=== PATIENT | female | born 2000 | race Caucasian/White ===

== ENCOUNTER 2023-03-11 09:51 | Outpatient (CLI) | payer MEDICAID, SELFPAY ==
[2023-03-11 10:11] VITALS: BP 104/65; PULSE 107; RESP 16; TEMP 35.9; O2SAT 98; BMI 26.9
[2023-03-11] MEDS: 0.9% NaCl Peripheral Flush Adult/Peds IV (10:17)
[2023-03-11] MEDS: 0.9% NaCl IVPB Med Flush (250 mL) 15 ML IV (10:20)
[2023-03-11 11:30] VITALS: BP 95/61; PULSE 83; RESP 16
== END 2023-03-11 09:52 | disposition home or self-care (01) ==
PROVIDERS: Referring Provider Obstetrics & Gynecology; Visit Provider Obstetrics & Gynecology
DX: O99.013 Anemia complicating pregnancy, third trimester (principal)
CPT/HCPCS: 96365; J1756; J7050; A4216

== ENCOUNTER 2023-03-14 11:25 | Outpatient (CLI) | payer MEDICAID, SELFPAY ==
[2023-03-14 11:33] VITALS: BP 119/71; PULSE 110; RESP 16; TEMP 36.3; O2SAT 100; BMI 27.3
[2023-03-14] MEDS: 0.9% NaCl Peripheral Flush Adult/Peds IV (11:41)
[2023-03-14] MEDS: 0.9% NaCl IVPB Med Flush (250 mL) 15 ML IV (11:45)
[2023-03-14 12:37] VITALS: BP 111/68; PULSE 97; RESP 16
== END 2023-03-14 11:26 | disposition home or self-care (01) ==
LOC: MEDOUTP 11:28
PROVIDERS: Referring Provider Obstetrics & Gynecology; Visit Provider Obstetrics & Gynecology
DX: O99.013 Anemia complicating pregnancy, third trimester (principal)
CPT/HCPCS: 96365; J1756; J7050; A4216

== ENCOUNTER 2023-03-16 12:32 | Outpatient (CLI) | payer MEDICAID, SELFPAY ==
[2023-03-16 13:12] VITALS: BP 108/74; PULSE 111; RESP 16; TEMP 35.9; O2SAT 97; BMI 27.8
[2023-03-16] MEDS: 0.9% NaCl Peripheral Flush Adult/Peds IV (13:20)
[2023-03-16] MEDS: 0.9% NaCl IVPB Med Flush (250 mL) 15 ML IV (13:20)
[2023-03-16 14:09] VITALS: BP 113/64; PULSE 96; RESP 16; TEMP 36.3; O2SAT 97
== END 2023-03-16 12:33 | disposition home or self-care (01) ==
LOC: MEDOUTP 12:33
PROVIDERS: Referring Provider Obstetrics & Gynecology; Visit Provider Obstetrics & Gynecology
DX: O99.013 Anemia complicating pregnancy, third trimester (principal)
CPT/HCPCS: 96365; J1756; J7050; A4216

== ENCOUNTER 2023-03-18 14:05 | Outpatient (CLI) | payer MEDICAID, SELFPAY ==
[2023-03-18] MEDS: 0.9% NaCl IVPB Med Flush (250 mL) 15 ML IV (14:14)
[2023-03-18] MEDS: 0.9% NaCl Peripheral Flush Adult/Peds IV (14:14)
[2023-03-18 14:20] VITALS: BP 115/70; PULSE 107; RESP 16; TEMP 36.6; O2SAT 99; BMI 27.2
[2023-03-18 14:59] VITALS: BP 113/70; PULSE 98; RESP 16; O2SAT 98
== END 2023-03-18 14:06 | disposition home or self-care (01) ==
LOC: MEDOUTP 14:06
PROVIDERS: Referring Provider Obstetrics & Gynecology; Visit Provider Obstetrics & Gynecology
DX: O99.013 Anemia complicating pregnancy, third trimester (principal)
CPT/HCPCS: 96365; J3490; J7050; J1756; A4216

== ENCOUNTER 2023-03-21 03:50 | Inpatient (IN) | payer MEDICAID, SELFPAY ==
[2023-03-21] VITALS (34 sets, daily range): BP systolic 98–124; BP diastolic 55–76; PULSE 78–130; RESP 16–18; TEMP 36.5–37.4; O2SAT 98–100; BMI 27.4
[2023-03-21] MEDS: Lactated Ringers 1,000 ML 50 ML IV (04:05)
[2023-03-21 04:20] LABS: Absolute Lymphocyte Count 1.89 X10^3/uL (0.83-4.51); Absolute Neutrophil Count 6.7 X10^3/uL (2.0-7.7); Basophil# 0.04 X10^3/uL; Basophil% 0.4 % (0-1); Eosinophil# 0.08 X10^3/uL; Eosinophils% 0.8 % (0-5); Hematocrit 35.3 % (37-47); Hemoglobin 11.7 g/dL (12.0-15.0); Lymphocyte # 1.89 X10^3/ul (0.83-4.51); Lymphocyte % 19.5 % (19-41); Mean Corp Hgb Conc 33.1 g/dL (32-36); Mean Corpuscular Hgb 32.1 pg (27.0-32.0); Mean Platelet Vol. 12.1 fl (6.2-12.0); Monocyte# 0.85 X10^3/uL; Monocyte% 8.8 % (0-10); NRBC Flagged by Analyzer 0 % (0-5); Neutrophil # 6.73 X10^3/uL (2.7-7.7); Neutrophil % 69.7 % (47-70); Platelet Count 172 K/mm3 (150-450); RBC Distribution Width CV 14.9 % (11.6-14.6); RBC Distribution Width SD 51.6 fl (35.1-43.9); Red Blood Count 3.64 M/mm3 (4.2-5.4); White Blood Count 9.7 K/mm3 (4.4-11.0)
[2023-03-21] MEDS: LACTATED RINGERS 500 ML 999 ML IV (04:40)
[2023-03-21 05:00] LABS: Syphilis Antibodies Non-reactive
[2023-03-21] MEDS: fentaNYL-bupivacaine (epidural) 100 ML BAG EPIDURAL (05:39)
[2023-03-21] MEDS: Oxytocin 15 Units/NS 250ml 15 UNITS/250 ML IV.SOLN 2 UNITS IV (06:45)
--- NOTE | 2023-03-21 08:52 | HP.PCM.OB_ITS ---
HPI - General General Date of Admission: 03/21/23 Date of Service: 03/21/23 Chief Complaint: labor HPI Narrative OK KAY, is a 22 1 para 0 who presents at 39-5/7 weeks gestation in spontaneous labor. She denies any gross vaginal bleeding. Patient has a history of nausea vomiting and early in the , depression, anemia during , vaping with nicotine dependence during . She has remote history of sports induced asthma but she has not required any medication since 2010. Maternal Data Information Final RUPINDER: 03/24/23 Gestational age: 39 5/7 PFSH [facility] Medical History (Updated 03/21/23 @ 08:[address] Alexa Rios MD) Anemia Anxiety Asthma Depression macrosomia Orthostatic hypotension Home Medications iron 40 mg capsule 45 mg PO DAILY 03/11/23 [History Last Taken 03/19/23] Allergy/AdvReac Type Severity Reaction Status Date / Time No Known Allergies Allergy Verified 03/18/23 14:23 Surgical History (Updated 03/21/23 @ 04:16 by María Wolf) [place] teeth removed Social History Smoking Status: Current every day smoker History Elective abortions Hx Para 0 Spontaneous abortions Hx # Term Pregnancies Ectopic pregnancies Hx # Pregnancies Multiple births # of living children ROS Constitutional Constitutional: Denies fatigue, fever(s) or malaise Eyes Eyes: Denies change in vision ENT HEENT: Denies dizziness or headache(s) Cardiovascular Cardiovascular: Denies chest pain, dyspnea or lightheadedness Respiratory/Chest Respiratory/Chest: Denies cough or dyspnea Gastrointestinal Gastrointestinal: Denies change in bowel habits Genitourinary Genitourinary: Denies burning urination or genital lesions Integumentary Integumentary: Denies rash Neurologic Neurologic: Denies confusion, dizziness, headache(s), numbness or weakness Vital Signs Vital Signs Vital Signs: 03/21/23 03:13 03/21/23 03:13 03/21/23 03:13 Temperature Temperature Source Temporal Pulse Rate 93 Blood Pressure 124/75 H BP Systolic 124 BP Diastolic 75 Pulse Ox 03/21/23 03:15 03/21/23 03:15 03/21/23 03:13 Temperature 97.7 F L Temperature Source Pulse Rate 117 H Blood Pressure BP Systolic BP Diastolic Pulse Ox 99 03/21/23 05:25 03/21/23 05:25 03/21/23 05:26 Temperature Temperature Source Pulse Rate 85 Blood Pressure 113/73 BP Systolic 113 BP Diastolic 73 Pulse Ox 100 03/21/23 05:26 03/21/23 05:28 03/21/23 05:28 Temperature Temperature Source Pulse Rate 80 89 Blood Pressure 115/74 BP Systolic 115 BP Diastolic 74 Pulse Ox 03/21/23 05:30 03/21/23 05:30 03/21/23 05:32 Temperature Temperature Source Pulse Rate 91 Blood Pressure 115/72 BP Systolic 115 BP Diastolic 72 Pulse Ox 100 03/21/23 05:32 03/21/23 05:35 03/21/23 05:35 Temperature Temperature Source Pulse Rate 94 91 Blood Pressure BP Systolic BP Diastolic Pulse Ox 100 03/21/23 05:37 03/21/23 05:37 03/21/23 05:40 Temperature Temperature Source Pulse Rate 107 H 93 Blood Pressure 107/66 BP Systolic 107 BP Diastolic 66 Pulse Ox 03/21/23 05:40 03/21/23 05:42 03/21/23 05:42 Temperature Temperature Source Pulse Rate 95 Blood Pressure 100/55 L BP Systolic 100 BP Diastolic 55 Pulse Ox 99 03/21/23 05:45 03/21/23 05:45 03/21/23 05:48 Temperature Temperature Source Pulse Rate 98 Blood Pressure 118/58 L BP Systolic 118 BP Diastolic 58 Pulse Ox 99 03/21/23 05:48 03/21/23 05:32 03/21/23 05:50 Temperature Temperature Source Temporal Pulse Rate 96 95 Blood Pressure BP Systolic BP Diastolic Pulse Ox 03/21/23 05:50 03/21/23 05:32 03/21/23 05:52 Temperature 98.1 F Temperature Source Pulse Rate Blood Pressure 105/57 L BP Systolic 105 BP Diastolic 57 Pulse Ox 98 03/21/23 05:52 03/21/23 05:55 03/21/23 05:55 Temperature Temperature Source Pulse Rate 95 101 H Blood Pressure BP Systolic BP Diastolic Pulse Ox 99 03/21/23 05:57 03/21/23 05:57 03/21/23 06:00 Temperature Temperature Source Pulse Rate 90 103 H Blood Pressure 109/60 BP Systolic 109 BP Diastolic 60 Pulse Ox 03/21/23 06:00 03/21/23 06:02 03/21/23 06:02 Temperature Temperature Source Pulse Rate 83 Blood Pressure 113/62 BP Systolic 113 BP Diastolic 62 Pulse Ox 100 03/21/23 06:07 03/21/23 06:07 03/21/23 06:12 Temperature Temperature Source Pulse Rate 87 Blood Pressure 116/66 113/62 BP Systolic 116 113 BP Diastolic 66 62 Pulse Ox 03/21/23 06:12 03/21/23 06:12 03/21/23 06:12 Temperature 98.6 F Temperature Source Temporal Pulse Rate 78 Blood Pressure BP Systolic BP Diastolic Pulse Ox 03/21/23 07:06 03/21/23 07:06 03/21/23 07:06 Temperature Temperature Source Temporal Pulse Rate 85 Blood Pressure 110/61 BP Systolic 110 BP Diastolic 61 Pulse Ox 03/21/23 07:06 03/21/23 08:06 03/21/23 08:06 Temperature 98.0 F Temperature Source Pulse Rate 81 Blood Pressure 112/63 BP Systolic 112 BP Diastolic 63 Pulse Ox Weight Weight: 79.6 kg Body Mass Index (BMI) 27.4 Physical Exam Const alert and no apparent distress General Appearance: cooperative HEENT normocephalic Resp normal respiratory effort Cardio regular rate GI soft to palpation GI Narrative: gravid, nontender, appropriate for gestational age Extremity no calf tenderness General Extremity: edema Skin no wounds Rashes: No rashes noted Psych activity/motor behavior normal Labs Labs Labs: Blood Type O POSITIVE Antibody Screen NEGATIVE Hct 35.3 % (37-47) L Hgb 11.7 g/dL (12.0-15.0) L Syphilis Total Ab Non-reactive Assessment & Plan (1) 39 weeks gestation of : PLAN: [place] parous patient in spontaneous labor. Group B strep prophylaxis is initiated for group B strep positive status during . Estimated weight is less than 5000 g clinically and pelvis clinically adequate to expect vaginal delivery. May have epidural or other routine pain management measures as indicated and desired. (2) Elective induction of labor planned:
--- NOTE | 2023-03-21 09:41 | EX.PCM.OBRPT ---
Assessment & Plan (1) (spontaneous vaginal delivery): Maternal Data Information Final RUPINDER: 03/24/23 Gestational age: 39 5/7 Vaginal Delivery Maternal Presentation Maternal Presentation: Active Labor Operative Information Date of Procedure: 03/21/23 Pre-Operative Diagnosis: labor Post-Operative Diagnosis: same Surgery / Procedure Performed: Spontaneous Vaginal Delivery Type of Anesthesia: Epidural Special Medications: none Drain: [place] to straight drain Estimated Blood Loss: 400 Time of Delivery: 09:20 Findings Description of Procedure: A vigorous female infant was delivered LEV over a second-degree perineal laceration. The remainder the infant was delivered with maternal pushing and gentle traction only in less than 15 seconds. The Pitocin infusion was initiated for active management of the third stage. The cord was clamped and cut after cord pulsations ceased. The infant was attended to by the waiting nursing staff. The placenta was delivered spontaneously and intact. The cervix and vagina were intact. The second-degree perineal laceration was repaired with 2-0 and 3-0 Vicryl suture in a running standard fashion. Sponge and needle counts were correct. A vaginal sweep was completed by me. Presentation: LEV Amniotic Membrane Rupture Type: Spontaneous Amniotic Fluid Description: Moderate meconium Placental Delivery Description: Spontaneous Cord Vessel Description: 3 Vessels A Gender: Female (1 minute): 8 (5 minute): 9 Delayed Cord Clamping: Yes Post Vaginal Delivery Medications Given After Delivery: IV Pitocin Episiotomy Description: None Laceration: 2nd degree Complication Complications: None
[2023-03-21] MEDS: Oxytocin 15 Units/NS 250ml 15 UNITS/250 ML IV.SOLN 83 UNITS IV (09:50)
[2023-03-21] MEDS: Benzocaine/Lanolin/Aloe Vera 1 SPRAY EACH TOPICAL (13:11)
[2023-03-21] MEDS: Ibuprofen 600 MG Tablet PO (13:12)
[2023-03-22] VITALS: BP 113/63; PULSE 84; RESP 18; TEMP 36.7
[2023-03-22 04:05] VITALS: BP 107/59; PULSE 89; RESP 18; TEMP 36.9
[2023-03-22 05:51] LABS: Hematocrit 32.4 % (37-47); Hemoglobin 10.7 g/dL (12.0-15.0); Mean Corpuscular Hgb 32.4 pg (27.0-32.0); Mean Corpuscular Volume 98.2 fL (81-99); Mean Platelet Vol. 11.8 fl (6.2-12.0); Platelet Count 164 K/mm3 (150-450); RBC Distribution Width CV 15.1 % (11.6-14.6); RBC Distribution Width SD 53.4 fl (35.1-43.9); White Blood Count 10.3 K/mm3 (4.4-11.0)
[2023-03-22 07:27] VITALS: BP 101/68; PULSE 77; RESP 16; TEMP 37; O2SAT 97
[2023-03-22] MEDS: Ibuprofen 600 MG Tablet PO (07:29)
--- NOTE | 2023-03-22 08:45 | PCM.PN.OB ---
Subjective Subjective Denies complaints Objective Data Objective Data Vital Signs: Vital Signs Temp Pulse Resp BP Pulse Ox O2 Del Method 98.6 F 77 16 101/68 97 Room Air 03/22/23 07:27 03/22/23 07:27 03/22/23 07:27 03/22/23 07:27 03/22/23 07:27 03/22/23 07:27 Oxygen Delivery Method Room Air Weight: 175 lb 7.807 oz Body Mass Index (BMI) 27.4 Intake & Output: Intake and Output for Last 24 Hours 03/20/23 03/21/23 03/22/23 23:59 23:59 23:59 Intake Total 1670.66 / 1670.66 Output Total 2400 / 2400 Balance -729.34 / -729.34 Lab / Micro Data Result Diagrams: 03/22/23 05:40 Labs: Laboratory Results - last 24 hr 03/22/23 05:40: WBC 10.3, RBC 3.30 L, Hgb 10.7 L, Hct 32.4 L, MCV 98.2, MCH 32.4 H, MCHC 33.0, RDW Std Deviation 53.4 H, RDW Coeff of Paul 15.1 H, Plt Count 164, MPV 11.8 Physical Exam Const alert, oriented x3 and no apparent distress HEENT normocephalic GI soft to palpation, non-tender and non-distended GI Narrative: fundus firm, mid & below umbilicus Extremity normal to inspection and no calf tenderness Assessment & Plan (1) (spontaneous vaginal delivery): COMMENT: PPD#1 PLAN: Plan D/c home
--- NOTE | 2023-03-22 08:46 | DCINST_ITS ---
Discharge Instructions Follow Up Care Please Follow Up With: Alexa Rios MD When: 2&6 weeks Test Results: Test results from this visit will be discussed in further detail at your follow- up appointment, if applicable. Discharge Plan Admission Admit Date/Time: 03/21/23 03:50 Primary Reason for Your Visit: Vaginal delivery Attending Provider: Alexa Rios Primary Care Provider: LAKSHMI BENAVIDEZ Consulting Providers: Tennille Avelar Discharge Orders/Prescriptions Prescriptions: New acetaminophen 500 mg Tablet 1,000 mg PO Q6H PRN PRN (Reason: Pain 1-10 Or Fever) Qty: 0 0RF ibuprofen 600 mg Tablet 600 mg PO Q6H PRN PRN (Reason: Pain Score 1-3) Qty: 0 0RF Continued iron 40 mg Capsule 45 mg PO DAILY Referrals / Follow Up: LAKSHMI BENAVIDEZ [Other] Disposition Disposition (needs filled in before D/C Order can be placed): Home, Self Care
[2023-03-22 14:03] VITALS: BP 112/78; PULSE 74; RESP 16; TEMP 36.3
--- NOTE | 2023-03-22 14:24 | CASEMGMT ---
Social Work Assessment? Labor and Delivery Unit? Patient [address]: [address] [place] [id number]? Phone number: [phone]? Date of Referral: 03/22/2023? Date of Intervention: 03/22/2023? Time of Intervention: 12:35? Reason for Referral: First time parent, hx of mental health? History obtained from: medical records and mother of baby (MOB)? Household composition: MOB, FOB, Jovany, and baby? Patient's parent/guardian status: MOB and FOB in a relationship for 2 years and reside together. MOB denies domestic violence concerns.? Medical History: MOB reports no prior pregnancies, anemia throughout , appropriate care. Baby girl, Dwight, weighed 9lbs with 8/9 apgars. Baby has a heart murmur to be followed up with. ? Educational Status: No literacy concerns? Financial Status: No concerns? Supplies: Reports all supplies available including crib and car seat.? Childcare/Caregiver(s): MOB plans to stay home and her grandmother and mother will assist? Transportation: No concerns? Programs/Agencies Involved: WIC? Children Services/Legal Issues: None reported? Behavioral Health Issues: History of depression and anxiety. Patient took zoloft two years ago. No current depression concerns, some anxiety with . MOB is willing to seek counseling if needed and had counseling in the past. MOB denies substance abuse concerns for either parent and no family history. MOB vapes nicotine but reports limiting vaping.? Family/Social Stressors: Denies any concerns? Support Systems: MOB?s mother and grandmother? Depression: Provided education and gave resources.? Shaken Baby: Provided education and gave resources. MOB demonstrated understanding.? Safe Sleeping: Provided education and gave resources. MOB demonstrated understanding.? ASSESSMENT:? MOB interacted appropriately and no concerns presented at time of assessment.? PLAN:? No other services requested or indicated.? Alisia Ray [employer] TR[employer], [employer]
[2023-03-22 20:50] VITALS: BP 120/85; PULSE 98; RESP 16; TEMP 36.8; O2SAT 98
[2023-03-23 06:41] VITALS: PULSE 105; O2SAT 99
[2023-03-23 06:46] VITALS: PULSE 104; O2SAT 98
[2023-03-23 06:51] VITALS: PULSE 101; O2SAT 99
[2023-03-23 06:56] VITALS: PULSE 101; O2SAT 100
--- NOTE | 2023-03-29 12:44 | NURSING ---
Mother doing well on follow up visit, she loved all the staff.
== END 2023-03-22 21:08 | disposition home or self-care (01) | DRG 560 ==
LOC: WPOUT 03:52 → WP 03:52
PROVIDERS: Obstetrics & Gynecology; Admitting Provider Obstetrics & Gynecology; Referring Provider Obstetrics & Gynecology; Visit Provider Obstetrics & Gynecology
DX: O99.013 Anemia complicating pregnancy, third trimester (principal); Z37.0 Single live birth; F17.290 Nicotine dependence, other tobacco product, uncomplicated; O70.1 Second degree perineal laceration during delivery; Z3A.39 39 weeks gestation of pregnancy; O99.334 Smoking (tobacco) complicating childbirth; O77.0 Labor and delivery complicated by meconium in amniotic fluid; O99.824 Streptococcus B carrier state complicating childbirth
CPT/HCPCS: 59025; 59050; 85025; 85027; 86780; 86850; 86900; 86901; 99221; J1756; J7050; J7120; A4216; G0378

== ENCOUNTER 2025-10-19 12:39 | Emergency (ER) | payer MEDICAID, SELFPAY ==
[2025-10-19 12:39] VITALS: BP 124/82; PULSE 105; RESP 18; TEMP 37.2; O2SAT 99
[2025-10-19 13:01] VITALS: BP 105/72; BP 106/66; BP 117/77; PULSE 106; PULSE 113; PULSE 91
--- NOTE | 2025-10-19 13:02 | EX.ED.DYSGE1 ---
HPI History of Present Illness Chief Complaint: Informant: patient and spouse/S.O. Narrative Narrative: Patient is a 25-year-old female, , currently 34 weeks , presenting with intermittent bilateral lower extremity weakness, numbness, and discoloration. - Symptoms began 2-3 days ago, with legs turning purple and blotchy after standing for approximately 5 minutes. Associated with bilateral lower extremity weakness and numbness, with the left leg exhibiting more pronounced discoloration. - Describes a sensation of legs not working and feeling like she might collapse when walking. - Associated symptoms include tachycardia, lightheadedness, and dyspnea. Symptoms all improve/resolve together when sitting or lying down, with the right side being the most comfortable position. - Denies similar issues during previous . - Reports increased thirst over the past month, with clear urine output. - Denies recent known dehydration. - Diagnosed with anemia, currently taking iron supplements. - Recently started a mood stabilizer and antidepressant this week. - Denies contractions, but feels lower abd pressure for 1-2 weeks. Follows with the [facility] group. [facility] Medical History macrosomia Orthostatic hypotension Anemia Asthma Depression Anxiety Home Medications ?Medication ?Instructions ?Recorded ?Last Taken ?Type iron 40 mg capsule 45 mg PO DAILY 03/11/23 03/19/23 History acetaminophen 500 mg tablet 1,000 mg (2 x 500 mg) PO Q6H PRN 03/22/23 Unknown Rx PRN Pain 1-10 Or Fever #0 tabs ibuprofen 600 mg tablet 600 mg PO Q6H PRN PRN Pain Score 03/22/23 Unknown Rx 1-3 #0 tabs Allergy/AdvReac Type Severity Reaction Status Date / Time No Known Allergies Allergy Verified 10/19/25 12:43 Surgical History [place] teeth removed Social History Smoking Status: Current every day smoker tobacco type: cigarettes ROS ROS ED Constitutional Constitutional ED: Denies chills or fever(s) Eyes Eyes: Denies change in vision or diplopia ENT ENT ED: Denies rhinorrhea or sore throat Cardiovascular Cardiovascular: Reports lightheadedness, orthostatic symptoms and racing heartbeat; Denies chest pain, pedal edema, syncope or vomiting Respiratory/Chest Respiratory/Chest: Reports dyspnea; Denies cough Gastrointestinal Gastrointestinal: Denies abdominal pain, diarrhea, nausea or vomiting Genitourinary Genitourinary ED: Denies dysuria or hematuria Musculoskeletal Musculoskeletal: Denies back pain or neck pain Integumentary Denies abscess or rash Neurologic Neurologic: Reports paresthesias RLE and LLE and other Details: weakness in BLE when purple and tingly; all resolves together ; Denies headache(s) Psychiatric Psychiatric: Denies anxiety or suicidal thoughts Endocrine Endocrinology: Reports polydipsia; Denies polyuria EXAM Physical Exam Const Vital Signs: 10/19/25 12:39 10/19/25 12:49 10/19/25 13:01 Temperature 99.0 F Temperature Source Oral Pulse Rate 105 H Pulse Rate [Lying] 91 Pulse Rate [Sitting (for 1 minute prior to obtaining)] 106 H Pulse Rate [Standing (for 1 minute prior to obtaining)] 113 H Respiratory Rate 18 Respiratory Effort Normal Non-Labored Respiratory Pattern Normal Blood Pressure 124/82 H Blood Pressure [Lying] 106/66 Blood Pressure [Sitting (for 1 minute prior to obtaining)] 105/72 Blood Pressure [Standing (for 1 minute prior to obtaining)] 117/77 Blood Pressure Mean 96 Blood Pressure Mean [Lying] 79 Blood Pressure Mean [Sitting (for 1 minute prior to obtaining)] 83 Blood Pressure Mean [Standing (for 1 minute prior to obtaining)] 90 Pulse Ox 99 Oxygen Delivery Method Room Air 10/19/25 15:04 Temperature Temperature Source Pulse Rate 88 Pulse Rate [Lying] Pulse Rate [Sitting (for 1 minute prior to obtaining)] Pulse Rate [Standing (for 1 minute prior to obtaining)] Respiratory Rate 16 Respiratory Effort Respiratory Pattern Blood Pressure 125/79 H Blood Pressure [Lying] Blood Pressure [Sitting (for 1 minute prior to obtaining)] Blood Pressure [Standing (for 1 minute prior to obtaining)] Blood Pressure Mean 94 Blood Pressure Mean [Lying] Blood Pressure Mean [Sitting (for 1 minute prior to obtaining)] Blood Pressure Mean [Standing (for 1 minute prior to obtaining)] Pulse Ox 100 Oxygen Delivery Method Room Air Positive well nourished and well developed General Appearance ED: well developed and NAD HEENT Reports moist mucous membranes normocephalic and atraumatic Eyes PERRL and EOMs intact bilaterally Neck full ROM and supple Resp normal respiratory effort and clear to auscultation bilaterally Cardio regular rate, regular rhythm and no murmurs Rate: tachycardic GI non-tender GI Narrative: Gravid uterus above the umbilicus. No tenderness. Auscultation: normoactive bowel sounds Palpation: soft Back/Spine no CVA tenderness General Back: other FROM Extremity normal to inspection Extremity Narrative: Normal-appearing lower extremities normal color 2+/4 bilateral dorsalis pedis pulses all compartment soft nondistended no tenderness no rashes no color changes brisk up refill. No palpable cords. With standing, within 2 minutes she starts to have darker gradual discoloration of both legs simultaneously, pulses are still palpable, cap refill is about 4 seconds both feet. Starting to feel lightheaded so we sat her into the bed. General Extremety ED: Negative for edema, pulses abnormal or tenderness General Extremity: Negative for edema or pulses abnormal Neuro oriented x3, CN's II-XII intact bilaterally and no sensory deficits noted Sensorium / Orientation: awake and alert Motor Exam: strength 5/5 throughout Psych mental status grossly normal Skin no rashes or lesions noted and no wounds MDM MDM MDM Narrative Medical decision making narrative: The patient experiences venous congestion in both legs, with decreased capillary refill only while standing, resulting in paresthesias and symptoms of low blood flow above the waist (lightheadedness and dyspnea). This presentation suggests vascular compression due to the pressure from her gravid uterus, either at the IVC or the femoral bundles bilaterally. These symptoms resolve when she sits or lies supine, especially on her right side, where she is asymptomatic. At those times, examination of both legs is benign, with no signs of SVT or DVT. Therefore, I do not believe she requires a vascular ultrasound of the legs. When she is resting, her pulses are excellent. The differential diagnosis includes dehydration with or without glycosuria, which was ruled out by a urinalysis. Her serum glucose is 104, and she does not have prerenal azotemia. Orthostatic vital signs are technically negative, and blood pressure was measured on her arm. Her hemoglobin is 10.9, which is stable for , and the rest of her blood tests are unremarkable. She received one liter of fluid, and upon rechecking, her symptoms and the apparent venous engorgement of both legs remained the same, although pulses were still palpable even when standing and symptomatic. I discussed these findings with vascular surgery (Dr. Calvillo), who recommended compression stockings and DVT prophylaxis, agreeing with the above. I also consulted OB (Dr. Daly), who advises against strict bed rest and recommends that the patient change positions as tolerated, limiting prolonged standing since that is when she is most symptomatic. Baby aspirin 81 mg has been added to her medication regimen, along with compression stockings. 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 Per OB recommendations, if she needs a work note, specific restrictions, or a prescription for compression stockings, she will follow up in the OB office?an appointment already recommended for next week?and they will address those needs at that time. Portions of this note were generated using voice recognition software ([employer]). I have reviewed the contents and every effort has been made to ensure accuracy; however, inadvertent errors in grammar, spelling, punctuation, or word choice may occur, that were not noted before signing the document and should not alter the intended clinical meaning. Lab Data Attestation: I reviewed the patient's lab results. Labs: Laboratory Results - last 24 hr 10/19/25 10/19/25 13:10 14:09 WBC 10.0 RBC 3.26 L Hgb 10.9 L Hct 31.9 L MCV 97.9 MCH 33.4 H MCHC 34.2 RDW Std Deviation 47.5 H RDW Coeff of Paul 13.2 Plt Count 137 L MPV 11.8 Immature Gran % (Auto) 1.000 H Neut % (Auto) 69.3 Lymph % (Auto) 17.2 L Blanco % (Auto) 11.0 H Eos % (Auto) 1.3 Baso % (Auto) 0.2 Absolute Neuts (auto) 6.9 Absolute Lymphs (auto) 1.72 Nucleated RBC % 0 Sodium 137 Potassium 3.6 Chloride 106 Carbon Dioxide 21.7 Anion Gap 10 BUN 6 Creatinine 0.51 L Estim Creat Clear Calc 189.25 Est GFR (MDRD) Non-Af 133 BUN/Creatinine Ratio 10.8 Glucose 104 H Calcium 8.6 Urine Color Yellow Urine Clarity Sl. Cloudy Urine pH 6.0 Ur Specific Sulphur 1.015 Urine Protein Negative Urine Glucose (UA) Normal Urine Ketones Negative Urine Occult Blood Negative Urine Nitrite Negative Urine Bilirubin Negative Urine Urobilinogen 1 H Ur Leukocyte Esterase 100 H Urine RBC 0 SEEN Urine WBC 0-5 SEEN Ur Squamous Epith Cells 0-5 SEEN Urine Bacteria 0 SEEN Urine Mucus 0 SEEN Management Discussion w/another healthcare provider: [employer] (vascular surgery, IN[facility]CTURE CONSULTANT) Discharge Plan Triage Chief Complaint: ED Provider: Parveen Munoz Dx/Rx/DC Orders Clinical Impression: Vein compression, Positional lightheadedness, Third trimester Instructions: Orthostatic Hypotension Prescriptions: No Action iron 40 mg Capsule 45 mg PO DAILY acetaminophen 500 mg Tablet 1,000 mg PO Q6H PRN PRN (Reason: Pain 1-10 Or Fever) Qty: 0 0RF ibuprofen 600 mg Tablet 600 mg PO Q6H PRN PRN (Reason: Pain Score 1-3) Qty: 0 0RF Primary Care Provider: Care Physician,No Primary Referrals: Nadine Daly DO [Med Staff - Active Staff, Obstetrics-Gynecology (OBGYN)] - 3-5 Days Activity Restrictions/Additional Instructions: - Start taking baby aspirin 81 mg once daily. - Wear compression stockings to help improve blood flow in your legs. Ask your OB for a prescription and any work-restriction notes at your next visit. - Avoid standing for long periods; change positions frequently and limit time on your feet. - When lying down, rest on your right side rather than on your back or left side to help with breathing and leg circulation. - Lab tests showed normal blood sugar (104 mg/dL), no signs of dehydration on urinalysis, and stable anemia (hemoglobin 10.9). - Continue routine care and follow up with your OB next week to discuss and obtain any necessary notes or prescriptions. Print Language: Slovak Disposition Disposition: Home, Self Care
--- OUTSIDE RECORDS SUMMARY | 2025-10-19 13:05 | XMS RPT_ITS | CCD ---
Author Organization [facility] Care Team Providers Care Spa Technician Name Role Phone Eulogio Chester Admitting Unavailable Eulogio Chester Attending Unavailable No Doctor Assigned, Nodr Primary Care Unavail able [place], Pat April Attending Unavailab griselda [place], Pat April Admitting Unavailab griselda Giraldo Pat April Primary Care Unavailab le Kristal Pat April Attending Unavailab griselda Giraldo Pat April Primary Care Unavailab Migdalia Casasberly Unavailable Unavailable SuwaneePat kowalski Unavailable Unavailable Pat Giraldo Unavailable Unavailable Rodríguez Jones Unavailable Unavailable Delma Vázquez Unavailable Unavailable Ekta García Unavailable Unavailable None, No PCP Unavailable Unavailable Rodríguez Jones Unavailable Pat Giraldo Unavailable Soin Ferreira Unavailable Pat Giraldo Unavailable Unavailable Unavailable Biltereseback Shivani Unavailable Unavailabl e Kristal GODINEZ Pat Marilee Primary Care Provider [facility] Primary Care Unavailab SONI Bond Attending Unavailable SONI GRANADOS Admitting Unavailable SONI GRANADOS Referring Unavailable RAGHAVDEXDIMAPAT MARILEE Primary Care Unavailab griselda Ruiz Patti Unavailable Unavailable Unavailable Unavailable Lakshmi Chanel Primary Care Provider Unavailab Lakshmi Geiger Primary Care Provider Unavailab le Manocchio, Shivani Unavailable Unavailable Lakshmi Chanel Primary Care Provider Unavailab le Dilshad, Karmon Attending Unavailable ROZAKIS, G1 Primary Care Unavailable Dilshad, Karmon Referring Unavailable Dilshad, Karmon Attending Unavailable Dilshad, Karmon Referring Unavailable ROZAKIS, G1 Primary Care Unavailable ROZAKIS, G1 Primary Care Unavailable Dilshad, Karmon Attending Unavailable Dilshad, Karmon Referring Unavailable ROZAKIS, G1 Primary Care Unavailable Tennille Avelar Unavail able Gabriel, Margo Referring Unavailable Gabriel, Margo Attending Unavailable Gabriel, Margo Admitting Unavailable Fortune MAINTENANCE PARTS TECHNICIAN, Katelynn Attending Unavailable ROZAKIS, G1 Primary Care Unavailable Dilshad, Karmon Attending Unavailable Dilshad, Karmon Referring Unavailable ROZAKIS, G1 Primary Care Unavailable Dilshad, Karmon Attending Unavailable Dilshad, Karmon Referring Unavailable Kristal, . Pat April Primary Care Unava ilable Kristal, MsDionne Alana Marilee Attending Unava ilable Kristal, Ms. Alana Marilee Referring Unava ilable Manocchio, Dionne Shivani Attending Unavail able [place], MsDionne Alana April Primary Care Unava ilable Kamenik, Julio Cesar Anthony Attending Unavai lable Kristal, Ms. Pat April Primary Care Unava ilable Joseph, MsDionne Wagner Attending Unava ilable [place], Ms. Alana April Primary Care Unava ilable [place], Ms. 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[employer]IC[employer] COMMODITIES-Pat GODINEZ Unavailable Jennifer vailable Ryley INSPECTOR [employer] COMMODITIES-GRETCHEN, Cally Florence Primary Care Provider CALLY HEDRICK Attending Unavailable Lakshmi Chanel CNP Primary Care Provider Unava ilable Ryley INSPECTOR [employer] COMMODITIES-RHINESTONE SETTER, Cally Florence Unavailable [phone] Ryley INSPECTOR [employer]GRICULTURAL COMMODITIES-Cally GODINEZ Primary Care Provider Ryley INSPECTOR AGRICULTURAL COMMODITIES-RHINESTONE SETTERCally Unavailable Ryley INSPECTOR AGRICULTURAL COMMODITIES-RHINESTONE SETTERCally Primary Care Provider CALLY HEDRICK Primary Care Unavailable ERICA WARREN Attending Unavailable CALLY HEDRICK Primary Care Unavailable CALLY HEDRICK Primary Care Unavailable CALLY HEDRICK Primary Care Unavailable JULIO CESAR KEENAN Attending Unavailable Maira ROBLES, Ophelia Unavailable Unavailable Ryley INSPECTOR AGRICULTURAL COMMODITIES-Cally GODINEZ Primary Care Provider CALLY HEDRICK Attending Unavailable CALLY HEDRICK Primary Care Unavailable LAVOGUE, LAKSHMI Primary Care Unavailable LAVOGUE, LAKSHMI Primary Care Unavailable TRISHN-ORQUIDEA, MAKI Referring Unavailab le LAVOGUE, LAKSHMI Primary Care Unavailable GUIDO-ORQUIDEA, MAKI Referring Unavailab ZOË Molina Attending Unavailable LAVOGUE, LAKSHMI Primary Care Unavailable KERN-ORQUIDEA, MAKI Referring Unavailab le LAVOGUE, LAKSHMI Primary Care Unavailable TRISHN-ORQUIDEA, MAKI Referring Unavailab TENNILLE Díaz Attending Unavail able LAVOGUE, LAKSHMI Primary Care Unavailable AHXAVI, AHMED Referring Unavailable LAVOGUE, LAKSHMI Primary Care Unavailable CHULA LOCKETT Referring Unavailable LAVOGUE, LAKSHMI Primary Care Unavailable ISAAC ACOSTA Attending Unavailable LAVOGUE, LAKSHMI Primary Care Unavailable LINO KUMAR Referring Unavailable LAVOGUE, LAKSHMI Primary Care Unavailable LINO KUMAR Referring Unavailable MARGO BLAND Attending Unavailable LAVOGUE, LAKSHMI Primary Care Unavailable LINO KUMAR Referring Unavailable ISAAC ACOSTA Attending Unavailable LAVOGUE, LAKSHMI Primary Care Unavailable CHULA LOCKETT Attending Unavailable LAVOGUE, LAKSHMI Primary Care Unavailable CHULA LOCKETT Referring Unavailable LAVOGUE, LAKSHMI Primary Care Unavailable CHULA LOCKETT Referring Unavailable LINO KUMAR Attending Unavailable LAVOGUE, LAKSHMI Primary Care Unavailable LINO KUMAR Referring Unavailable MAKI DAVIS Attending Unavailab le LAVOGUE, LAKSHMI Primary Care Unavailable TRISHN-ORQUIDEA, MAKI Referring Unavailab le AHMED, AHMED Attending Unavailable LAVOGUE, LAKSHMI Primary Care Unavailable JENELLE LOCKWOOD Attending Unavailable Medications Current Medications Medication Drug Class(es) Dates Sig (Normalized) Sig (Original) amoxicillin 250 mg oral capsule (4 sources) Penicillin-class Antibacterial Start: 04-10-2025 take 500 mg by mouth every eight hours 500 mg, oral, Every 8 hours scheduled, First dose on Tue04/10/25 at 2200, Suspected Indication (Select all that apply): Sinusitis/Other ENT, Type of Therapy: Empiric, Indications: Sinusitis/Other ENT Start: 04-10-2025 End: 04-17-2025 take 1 capsule by mouth three times daily amoxicillin (Amoxil) 500 mg capsule Indications: Right otitis media, unspecified otitis media type , Acute otitis externa of right ear, unspecified type Take 1 capsule (500 mg) by mouth 3 times a day for 7 days. 21 capsule 04/10/2025 04/17/2025 Active Start: 10-08-2023 End: 10-15-2023 take 1 tablet by mouth twice daily amoxicillin (Amoxil) 875 mg tablet Indications: Upper respiratory tract infection, unspecified type Take 1 tablet (875 mg) by mouth 2 times a day for 7 days. 14 tablet 0 10/08/2023 10/15/2023 Active Start: 06-10-2023 End: 06-19-2023 take 1 tablet by mouth twice daily amoxicillin 875 mg oral tablet ; 1 tab(s) orally 2 times a day x 10 days. Take with a meal. Quantity: 20 Refills: 0 Ordered: 10-Jun-2023 Patti Ruiz Start: 10-Jun-2023 End: 19-Jun-2023 Generic Substitution Allowed Comments: Finish all this medication unless otherwise directed by prescriber. Comment on above: Finish all this medi cation unless otherwise directed by prescriber. aspirin 81 mg delayed release oral tablet (19 sources) Platelet Aggregation Inhibitor, Nonsteroidal Anti-inflammatory Drug Start: 04-18-2025 take 1 tablet by mouth once daily aspirin, enteric coated (ECOTRIN LOW STRENGTH) 81 mg EC tablet Indications: with uncertain dates, antepartum (HCC) Take 1 tablet by mouth once daily. 90 tablet 3 04/18/2025 Active CONTROL PILL (1 source) CONTROL PI LL Quantity: 0 Refills: 0 Ordered: 10-Jun-2023 Vilma Frederick Generic Substitution Allowed ferrous sulfate 325 mg oral tablet (20 sources) Start: 08-15-2025 take 1 tablet by mouth every other day FeroSuL 325 mg (65 mg iron) tablet Take 1 tablet by mouth every other day. 08/15/2025 Active Start: 06-18-2025 take 1 tablet by karla th every other day ferrous sulfate 325 mg (65 mg iron) tablet Take 1 tablet by mouth every other day. 15 tablet 6 06/18/2025 Active Start: 09-10-2022 End: 06-11-2024 take 1 tablet by mouth once daily ferrous sulfate (SLOW FE) 140 mg (45 mg iron) TbER Take 1 tablet by mouth once daily. 60 tablet 5 09/10/2022 06/11/2024 Discontinued Comment on above: Take 1 tablet by karla th once daily. hydrocortisone 25 mg/ml topical cream (1 source) Corticosteroid Start: hydrocortisone (Anusol-HC) 2.5 % rectal cream Indications: Hemorrhoids, unspecified hemorrhoid type Insert into the rectum 2 times a day as needed for hemorrhoids (rectal discomfort). Apply to affected areas 30 g 1 08/27/2025 Active ibuprofen 600 mg oral tablet (1 source) Nonsteroidal Anti-inflammatory Drug Start: take 600 mg by mouth every six hours as needed Ibuprofen Active 600 MG PO EVERY 6 HOURS NEEDED 0 March 22, 2023 12:00am Iron (5 sources) Start: take 45 mg by mouth once daily Iron Active 45 MG PO DAILY March 11, 2023 12:00am ondansetron 4 mg oral tablet (20 sources) Serotonin-3 Receptor Antagonist Start: take 1 tablet by mouth every eight hours as needed ondansetron (ZOFRAN) 4 mg tablet Take 1 tablet by mouth every 8 hours as needed for nausea/vomiting. 30 tablet 2 04/18/2025 Active Start: 07-09-2024 End: 07-09-2024 take 4 mg by mouth once 4 mg, oral, Once, On 06/15 at 1835, For 1 dose Start: 01-13-2024 End: 01-16-2024 take 1 tablet by mouth every eight hours for nausea ondansetron ODT (Zofran-ODT) 4 mg disintegrating tablet Indications: Vomiting and diarrhea Take 1 tablet (4 mg) by mouth every 8 hours if needed for nausea or vomiting for up to 3 days. 9 tablet 0 01/13/2024 01/16/2024 Active Start: 01-13-2024 End: 01-13-2024 ondansetron (Zofran) injecti on 4 mg Start: 08-19-2022 ONDANSETRON HC L 4 MG TABLET ; 1 tab(s) orally 3 times a day, As Needed Quantity: 0 Refills: 0 Ordered: 19-Aug-2022 Sun Marr Start: 19-Aug-2022 Generic Substitution Allowed Comments: Source=Surejemimarimaryan, Medication=ONDANSETRON HCL 4 MG TABLET, Duration=10, Date Last Modified/Filled=19-Aug-2022 Start: 08-19-2022 End: 02-11-2023 take 1 tablet by mouth every eight hours as needed ondansetron (ZOFRAN) 4 mg tablet Take 1 tablet by mouth every 8 hours as needed for nausea/vomiting. 30 tablet 1 08/19/2022 02/11/2023 Discontinued Comment on above: Source=Surejemimaripts, Medication=ONDANSETRON HCL 4 MG TABLET, Duration=10, Date Last Modified/Filled=19-Aug-2022 Take 1 tablet by karla th every 8 hours as needed for nausea/vomiting. vit [id number] 6 6 mg iron- 833.5 mcg DFE tablet (1 source) vit [id number] 6 6 mg iron- 833.5 mcg DFE tablet Take by mouth. Active Completed/Discontinued Medications Medication Drug Class(es) Dates Sig (Normalized) Sig (Original) acetaminophen 325 mg oral tablet (3 sources) Start: 04-10-2025 End: 04-10-2025 take 975 mg by mouth once as needed for pain 975 mg, oral, Once, On Tue04/10/25 at 2150, For 1 dose, If ordered PRN for pain, nurse is permitted to administer this medication for higher pain scores based on patient preference? Yes Start: 07-09-2024 End: 07-09-2024 take 975 mg by mouth once as needed for pain 975 mg, oral, Once, On Tue07/09/24 at 1825, For 1 dose, If ordered PRN for pain, nurse is permitted to administer this medication for higher pain scores based on patient preference? Yes Start: 03-22-2023 take 1000 mg by mout h every six hours as needed Acetaminophen Active 1000 MG PO EVERY 6 HOURS NEEDED 0 March 22, 2023 12:00am [id number] 200 actuat albuterol 0.09 mg/actuat metered dose inhaler (3 sources) beta2-Adrenergic Agonist Start: 09-26-2021 End: 10-25-2021 take 2 puff(s) by inhalation four times daily as needed for cough albuterol 90 mcg/inh inhalation aerosol ; 2 puff(s) inhaled 4 times a day, As Needed -for cough - for wheezing Dispense with aerochamber. Quantity: 1 Refills: 0 Ordered: 26-Sep-2021 Shivani Garcia Start: 26-Sep-2021 End: 25-Oct-2021 Status: Completed Generic Substitution Allowed Comments: For inhalation only.It is very important that you take or use this exactly as directed. Do not skip doses or discontinue unless directed by your doctor.Obtain medical advice before taking any non-prescription drugs as some may affect the action of this medication.Shake well before use. Comment on above: For inhalation only. It is very important that you take or use this exactly as directed. Do not skip doses or discontinue unless directed by your doctor.Obtain medical advice before taking any non-prescription drugs as some may affect the action of this medication.Shake well before use. amoxicillin 875 mg / clavulanate 125 mg oral tablet (3 sources) Penicillin-class Antibacterial Start: 05-27-2020 End: 06-05-2020 take 1 tablet by mouth twice daily at mealtime amoxicillin-clavulan ate 875 mg-125 mg oral tablet ; 1 tab(s) orally 2 times a day Quantity: 20 Refills: 0 Ordered: 27-May-2020 Colt Ray Start: 27-May-2020 End: 05-Jun-2020 Status: Completed Generic Substitution Allowed Comments: Finish all this medication unless otherwise directed by prescriber.Take with food or milk. Comment on above: Finish all this medi cation unless otherwise directed by prescriber.Take with food or milk. azithromycin 250 mg oral tablet (6 sources) Macrolide Antimicrobial Start: 10-03-2020 Zithromax Z-Efraín 250 mg oral tablet ; as directed on packeage Quantity: 1 Refills: 0 Ordered: 03-Oct-2020 Eulogio Chester Start: 03-Oct-2020 Status: Completed Generic Substitution Allowed Comments: Do not take dairy products, antacids, or iron preparations within one hour of this medication.Finish all this medication unless otherwise directed by prescriber. Start: 05-23-2020 End: 05-27-2020 take 10 tablets by mouth once Azithromycin 5 Day Dose Pack 250 mg oral tablet ; take as directed on package Quantity: 6 Refills: 0 Ordered: 23-May-2020 Jessenia Kumar Start: 23-May-2020 End: 27-May-2020 Status: Completed Generic Substitution Allowed Comments: Do not take dairy products, antacids, or iron preparations within one hour of this medication.Finish all this medication unless otherwise directed by prescriber. Comment on above: Do not take dairy pr oducts, antacids, or iron preparations within one hour of this medication.Finish all this medication unless otherwise directed by prescriber. BIRTHCONTROL (3 sources) BIRTHCONTROL ; o nce a day Quantity: 0 Refills: 0 Ordered: 18-Jul-2020 Carlos Melanic Status: Completed Generic Substitution Allowed BIRTHCONTROL ; o nce a day Quantity: 0 Refills: 0 Ordered: 18-Jul-2020 Carlos Melanic Status: Other Generic Substitution Allowed brompheniramine maleate 0.4 mg/ml / dextromethorphan hydrobromide 2 mg/ml / pseudoephedrine hydrochloride 6 mg/ml oral solution (3 sources) alpha-Adrenergic Agonist, Uncompetitive U-yizcvi-M-aspartate Receptor Antagonist, Sigma-1 Agonist Start: 10-03-2020 take 5 mL by mouth every four to six hours brompheniramine/pseudoephedrine/dextrome thorphan [id number]/5 mL oral syrup ; 5 milliliter(s) orally every 4 to 6 hours, As Needed Quantity: 120 Refills: 0 Ordered: 03-Oct-2020 Eulogio Chester Start: 03-Oct-2020 Status: Completed Generic Substitution Allowed Comments: May cause drowsiness. Alcohol may intensify this effect. Use care when operating dangerous machinery.Obtain medical advice before taking any non-prescription drugs as some may affect the action of this medication. Comment on above: May cause drowsiness . Alcohol may intensify this effect. Use care when operating dangerous machinery.Obtain medical advice before taking any non-prescription drugs as some may affect the action of this medication. cephalexin 500 mg oral capsule (3 sources) Cephalosporin Antibacterial Start: 07-01-2022 take 1 capsul e by mouth every twelve hours Cephalexin 500 MG Oral Capsule TAKE 1 CA PSULE EVERY 12 HOURS UNTIL GONE. Quantity: 10 Refills: 0 Ordered: 01-Jul-2022 ha-IEHBAC-Hljtquys APRN-CNP, Pat Start : 01-Jul-2022 Active dextromethorphan hydrobromide 1 mg/ml / guaiFENesin 20 mg/ml oral solution (1 source) Uncompetitive X-jvkzfs-N-aspartate Receptor Antagonist, Sigma-1 Agonist Start: 11-24-2023 End: 06-11-2024 take 5 mL by mouth every four hours Dextromethorphan-guaiFENesin (ROBITUSSIN COUGH-CHEST LORY DM) 5-100 mg/5 mL liqd Take 5 mL by mouth every 4 hours. 120 mL 0 11/24/2023 06/11/2024 Discontinued doxepin 6 mg oral tablet (3 sources) Tricyclic Antidepressant Start: 06-24-2021 take 1 tablet by mouth once daily at bedtim e Doxepin HCl - 6 MG Oral Tablet one table t daily at bedtime Quantity: 30 Refills: 1 Ordered: 24-Jun-2021 Pat Clifford Start : 24-Jun-2021 Active escitalopram 10 mg oral tablet (3 sources) Serotonin Reuptake Inhibitor Start: 06-24-2021 take 1 tablet by mouth once daily Escitalopram Oxalate 10 MG Oral Tablet T mel 1 tablet daily Quantity: 30 Refills: 1 Ordered: 24-Jun-2021 Pat Clifford Start : 24-Jun-2021 Active Loestrin 12/03 (21) TABS (1 source) Estrogen Loestrin 20 (2 1) TABS Refills: 0 DO Active FLUoxetine 20 mg oral capsule (7 sources) Serotonin Reuptake Inhibitor Start: 09-28-2023 End: 07-17-2024 take 1 capsul e by mouth once daily FLUoxetine (PROzac) 20 mg capsule Indica tions: Moderate anxiety Take 1 capsule (20 mg) by mouth once daily. 90 capsule 1 09/28/2023 07/17/2024 Discontinued (Med List Cleanup) Start: 08-31-2023 take 1 capsule by [facility] once daily FLUoxetine (PROzac) 10 mg capsule Indications: Moderate anxiety Take 1 capsule (10 mg) by mouth once daily. 30 capsule 0 08/31/2023 Active fluticasone propionate 0.05 mg/actuat metered dose nasal spray (1 source) Corticosteroid Start: 12-01-2023 End: 06-11-2024 take 1 spray(s) nasal route once daily fluticasone (FLONASE) 50 mcg/actuation nasal spray Indications: Bacterial sinusitis , Acute MARY (middle ear effusion), bilateral Use 1 [place] in each nostril once daily. 1 Each 0 12/01/2023 06/11/2024 Discontinued folic acid 1 mg oral tablet (20 sources) Start: 09-10-2022 End: 06-11-2024 take 1 tablet by mouth once daily folic acid 1 mg tablet Take 1 tablet by mouth once daily. 100 tablet 2 09/10/2022 06/11/2024 Discontinued Comment on above: Take 1 tablet by karla th once daily. hydrOXYzine hydrochloride 10 mg oral tablet (16 sources) Antihistamine Start: 12-17-2019 take 1 tablet by mouth at bedtime hydrOXYzine HCl - 10 MG Oral Tablet TAKE 1 TABLET Bedtime Quantity: 90 Refills: 1 Pat Clifford Start : 17-Dec-2019 Active End: 12-03-2022 HYDROXYZINE PAMOATE (VISTARI L ORAL) Take by mouth. 0 12/03/2022 Discontinued HYDROXYZINE PAMO ATE (VISTARIL ORAL) Take by mouth. 0 Active Comment on above: Take by mouth. 1 ml ketorolac tromethamine 30 mg/ml injection (1 source) Nonsteroidal Anti-inflammatory Drug, Cyclooxygenase Inhibitor Start: 01-13-20 24 End: 01-13-20 24 ketorolac (Toradol) injection 15 mg Juli 1/20 1-20 MG-MCG Oral Tablet (3 sources) Start: 03-10-20 take 1 tablet by mouth once daily Juli 1/20 1-20 MG-MCG Oral Tablet take 1 tablet by mouth once daily Quantity: 21 Refills: 11 Ordered: 24-Jun-2021 Pat Clifford Start : 10-Mar-2021 Active Medrol Dosepak 4 mg oral tablet (6 sources) Start: 05-27-20 End: 06-01-20 21 Medrol Dosepak 4 mg oral tablet ; take as directed on package labeling Quantity: 1 Refills: 0 Ordered: 27-May-2021 Soni Ferreira Start: 27-May-2021 End: 01-Jun-2021 Status: Completed Generic Substitution Allowed Comments: It is very important that you take or use this exactly as directed. Do not skip doses or discontinue unless directed by your doctor.Obtain medical advice before taking any non-prescription drugs as some may affect the action of this medication.Take with food or milk. Start: 05-27-2021 End: 06-01-2021 Medrol Dosepak 4 mg oral tab let ; take as directed on package labeling Quantity: 1 Refills: 0 Ordered: 27-May-2021 Soni Ferreira Start: 27-May-2021 End: 01-Jun-2021 Status: Other Generic Substitution Allowed Comments: It is very important that you take or use this exactly as directed. Do not skip doses or discontinue unless directed by your doctor.Obtain medical advice before taking any non-prescription drugs as some may affect the action of this medication.Take with food or milk. Start: 05-27-2021 End: 06-01-2021 Medrol Dosepak 4 mg oral tab let ; take as directed on package labeling Quantity: 1 Refills: 0 Ordered: 27-May-2021 Soni Ferreira Start: 27-May-2021 End: 01-Jun-2021 Generic Substitution Allowed Comments: It is very important that you take or use this exactly as directed. Do not skip doses or discontinue unless directed by your doctor.Obtain medical advice before taking any non-prescription drugs as some may affect the action of this medication.Take with food or milk. Start: 10-03-2020 Medrol Dosepak 4 mg oral tablet ; as directed Quantity: 1 Refills: 0 Ordered: 03-Oct-2020 Newbill, Eulogio Start: 03-Oct-2020 Status: Completed Generic Substitution Allowed Comments: It is very important that you take or use this exactly as directed. Do not skip doses or discontinue unless directed by your doctor.Obtain medical advice before taking any non-prescription drugs as some may affect the action of this medication.Take with food or milk. Start: 10-03-2020 Medrol Dosepak 4 mg oral tablet ; as directed Quantity: 1 Refills: 0 Ordered: 03-Oct-2020 Newbill, Eulogio Start: 03-Oct-2020 Status: Other Generic Substitution Allowed Comments: It is very important that you take or use this exactly as directed. Do not skip doses or discontinue unless directed by your doctor.Obtain medical advice before taking any non-prescription drugs as some may affect the action of this medication.Take with food or milk. Comment on above: It is very important that you take or use this exactly as directed. Do not skip doses or discontinue unless directed by your doctor.Obtain medical advice before taking any non-prescription drugs as some may affect the action of this medication.Take with food or milk. mometasone furoate 0.001 mg/mg topical ointment (2 sources) Corticosteroid Start: End: mometasone 0.1% topical ointment ; Apply thin layer topically to affected area once a day as needed for itching/rash x 7 days Quantity: 1 Refills: 0 Ordered: 19-Jun-2022 Patti Ruiz Start: 19-Jun-2022 End: 25-Jun-2022 Status: Completed Generic Substitution Allowed Comments: For external use only. Comment on above: For external use onl y. mupirocin 0.02 mg/mg topical ointment (2 sources) RNA Synthetase Inhibitor Antibacterial Start: End: mupirocin 2% topical ointment ; Apply topically to affected area 2 times a day for infection x 7 days Quantity: 1 Refills: 0 Ordered: 19-Jun-2022 Patti Ruiz Start: 19-Jun-2022 End: 25-Jun-2022 Status: Completed Generic Substitution Allowed Comments: For external use only. Comment on above: For external use onl y. norethindrone 0.35 mg oral tablet (9 sources) Start: 023 End: take 1 tablet by mouth once daily Norethindrone, Contraceptive, (ORTHO MICRONOR) 0.35 mg tablet Take 1 tablet by mouth once daily. 84 tablet 2 05/02/2023 06/11/2024 Discontinued Norethindrone Acet-Ethinyl Est 1-20 MG-MCG Oral Tablet (1 source) take 1 tablet by mouth once daily, then take 1-20 tablets by mouth Norethindrone Acet-Ethinyl Est 1-20 MG-MCG Oral Tablet TAKE 1 TABLET DAILY DIRECTED. Quantity: 3 Refills: 3 Wendy Ruvalcaba DO Active 21 Tablet Pack ofloxacin 3 mg/ml otic solution (2 sources) Quinolone Antimicrobial Start: End: 10 drop, Right Ear, Once, On Tue04/10/25 at 2200, For 1 dose Start: 04-10-2025 End: 04-17-2025 ofloxacin (Floxin) 0.3 % sergio c solution Indications: Right otitis media, unspecified otitis media type , Acute otitis externa of right ear, unspecified type Administer 10 drops into the right ear once daily for 7 days. 0.35 mL 04/10/2025 04/17/2025 Active predniSONE 20 mg oral tablet (12 sources) Start: 11-24-2023 End: 06-11-2024 take 2 tablets by mouth once daily predniSONE (DELTASONE) 20 mg tablet Prednisone 40 mg (2-20mg tablets) po QD for 5 days 10 tablet 0 11/24/2023 06/11/2024 Discontinued Start: 07-01-2022 take 5 tablets by mo uth once daily, then take 5 tablets by mouth once daily, then take 1 tablet by mouth once daily predniSONE 10 MG Oral Tablet TAKE 5 TABLET Daily 5 tabs daily, then decrease by 1 tablet every day Start 07/02/22 Quantity: 15 Refills: 0 Ordered: 01-Jul-2022 Pat Jackson Start : 01-Jul-2022 Active Start: 09-26-2021 End: 09-30-2021 take 2 tablets by mouth once daily at mealtime predniSONE 20 mg oral tablet ; 2 tab(s) orally once a day x 5 days Quantity: 10 Refills: 0 Ordered: 26-Sep-2021 Shivani Garcia Start: 26-Sep-2021 End: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 Potassium [Moles/Vol] 3.9 mmol/L Normal 3.5-5.3 [facility] Comment on above: Performed By: #### 2 4323-8 #### SUNNY CADE (14642) [facility] ([facility]) [address] [place] [address] 79770 Protein [Mass/Vol] 7.2 g/dL Normal 6.4-8.2 [facility] Comment on above: Performed By: #### 2 4323-8 #### SUNNY CADE (53734) [facility] ([facility]) [address] [place] [address] 69481 Sodium [Moles/Vol] 138 mmol/L Normal 136-145 [facility] Comment on above: Performed By: #### 2 4323-8 #### SUNNY CADE ([id number]) [facility] ([facility]) [address] [place] [address] 25882 Urea nitrogen [Mass/Vol] 10 mg/dL Normal 6-23 [facility] Comment on above: Performed By: #### 2 4323-8 #### SUNNY CADE (05759) [facility] ([facility]) [address] [place] [address] Ferritinon 08-31-2023 Ferritin [Mass/Vol] 102 ng/mL Normal 8-150 [facility] Comment on above: Performed By: #### 2 276-4 #### SUNNY CADE (99049) [facility] ([facility]) [address] [place] [address] 38931 Folateon 08-31-2023 Folate [Mass/Vol] 14.7 ng/mL Normal >5.0 [facility] Comment on above: Order Comment: Low < 3.4 Borderline 3.4-5.0 Normal >5.0 Patients receiving more than 5 mg/day of biotin may have interference in test results. A sample should be taken no sooner than eight hours after previous dose. Contact the testing laboratory for additional information. Performed By: #### 2 284-8 #### SUNNY CADE (14930) [facility] ([facility]) [address] [place] [address] 99727 Iron and Iron binding capaci ty panelon 08-31-2023 Iron [Mass/Vol] 174 ug/dL High 35-150 [facility] Comment on above: Performed By: #### 5 0190-8 #### SUNNY CADE ([id number]) [facility] ([facility]) [address] [place] [address] 78910 Iron binding capacity [Mass/Vol] 343 ug/dL Normal 240-445 [facility] Comment on above: Performed By: #### 5 0190-8 #### SUNNY CADE ([id number]) [facility] ([facility]) [address] [place] [address] 43749 Iron binding capacity.unsaturated [Mass/Vol] 169 ug/dL Normal 110-370 [facility] Comment on above: Performed By: #### 5 0190-8 #### SUNNY CADE ([id number]) [facility] ([facility]) [address] [place] [address] 77328 Iron saturation [Mass fraction] 51 % High 25-45 [facility] Comment on above: Performed By: #### 5 0190-8 #### SUNNY CADE (12097) [facility] ([facility]) [address] [place] [address] 08689 Thyrotropinon 08-31-2023 TSH Qn 1.61 m[IU]/L Normal 0.44-3.98 [facility] Comment on above: Order Comment: TSH t esting is performed using different testing methodology at [facility] than at [facility]. Direct result comparisons should only be made within the same method. Performed By: #### 3 016-3 #### SUNNY CADE (91206) [facility] ([facility]) [address] [place] [address] 48059 Thyroxine.freeon 08-31-2023 Free T4 [Mass/Vol] 0.90 ng/dL Normal 0.61-1.12 [facility] Comment on above: Order Comment: Thyro xine Free testing is performed using different testing methodology at [facility] than at [facility]. Direct result comparisons should only be made within the same method. Biotin can cause falsely elevated free T4 results. Patients taking a Biotin dose of up to 10 mg/day should refrain from taking Biotin for 24 hours before sample collection. Patient taking a Biotin dose of >10 mg/day should consult with their physician or the laboratory before the blood draw. Performed By: #### 3 024-7 #### SUNNY CADE ([id number]) [facility] ([facility]) [address] [place] [address] 29094 Triiodothyronine.freeon 08-14 Free T3 [Mass/Vol] 3.6 pg/mL Normal 2.3-4.2 [facility] Comment on above: Performed By: #### 3 051-0 #### KRISTY Aiken ([id number]) [facility] ([facility]) [id number] [place] [address] 34247 Provider Note - ED v3on 05-15 Provider Note - ED v3 Provider Note: Results/Vital Signs Pediatric Clinical Scoring (BETY) is no recent BETY charted on this account Chart Review HISTORY OF PRESENTING ILLNESS NICHOL is a 23 year old Female and was seen by me at 10-Jun-2023 14:12. The historian is the patient. Triage Information: Most recent Vital Sign Value Date PAST MEDICAL HISTORY ALLERGIES/INTOLERANCE S: No Known Allergies HEALTH HISTORY: Has history of orthostatic Hypotension, and is currently . No other known health issues. Family history: no pertinent history. Social history: vapes. Has a 2 month old. Has a boyfriend. Not currently employed. OUTPATIENT MEDICATIONS: Home Medications Review Status for Reconciliation: Complete Med Status: Patient Currently Takes Medications Drug Name: CONTROL PILL Instructions: null Drug Name: amoxicillin 875 mg oral tablet Instructions: 1 tab(s) orally 2 times a day x 10 days. Take with a meal. SIGNIFICANT EVENTS: Past Medical History Description:ANXIETY/ ORTHOSTATIC HYPOTENSION Past Surgical History Description:WISDOM TEETH X 4 No other known significant events or other known past surgical history. 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 Reports has also had a subjective fever. She denies any chills, body aches, cough, rashes, abdominal pain, chest pain, wheezing/shortness of breath, urinary symptoms, nausea/vomiting, and diarrhea. No dizziness/lightheaded ness. Appetite is normal and she is able to eat and drink fluids without difficulty; denies any loss of sense of taste or smell. Reports symptoms have not improved since onset, and sinus pressure seems to be getting a little worse- reports pain is radiating into her teeth/jaw. Has been taking Tylenol Cold & Flu without much relief; no other [id number]-mfr-[id number] medications or home remedies for symptom management. JHcriss boyfriend is currently ill with similar sxs, and her grandma recently had COVID; no other known ill contacts. Has not received the COVID-19 vaccine. Is not a smoker, but she does vape. No known history of asthma/COPD. Is currently her 2 month old. Review of Systems 10 systems reviewed negative with exception of history of present illness listed above Physical Examination General: Mildly ill-appearing, pleasant female; alert and oriented, in no acute distress. + audible nasal congestion. Eyes: Pupils equal, round and reactive to light. No conjunctival erythema; no scleral icterus. HENT: + mild frontal, ethmoid, and maxillary sinus tenderness, with audible nasal congestion. Bilat ear canals clear/unremarkable, but TMs with clear effusions bilat and R TM with mild erythema (L TM unremarkable). Nasal mucosa moderately boggy and edematous. Airway patent, oral mucosa moist. Posterior pharynx mildly injected but without vesicles or oropharyngeal exudate aside from PND. Uvula is midline. Trachea is midline. Managing oral secretions without difficulty. Neck: Supple. Mildly tender mobile anterior cervical lymphadenopathy bilat. Respiratory: Lungs are clear to auscultation; no wheezes, rhonchi, or rales. Respirations unlabored, Breath sounds are equal, Symmetrical chest wall expansion. Mild, non-productive cough noted only upon request. Cardiovascular: Normal rate, Regular rhythm. Normal S1S2. No m/r/g. No peripheral edema. Gastrointestinal: Soft, non-tender, non-distended; no palpable masses or organomegaly. Bowel sounds normoactive. Musculoskeletal: Grossly normal Integumentary: [place], warm, dry, and intact. No rashes or skin discoloration appreciated. Neurologic: Alert and oriented, no focal deficits, no motor or sensory deficits. Cognition and Speech: Oriented, Speech clear and coherent. Psychiatric: Cooperative, Appropriate mood & affect. Medical Decision Making Course: Worsening; stable. Impression/Plan: No red flags on exam today. I have reviewed the COVID-19 algorithm, and counseled pt on current recommendations. Symptoms consistent with mild AOM of R ear and viral sinusitis with associated symptoms, but reviewed other potential etiologies, and nasal swab obtained (using proper PPE) for COVID-19 testing to err on the side of caution (especially in light of her recent exposure). Rx for watch and wait Amoxicillin provided, with instructions to begin o (more content not included)... Normal [facility] Provider Note - ED v3on 05-1 6-2023 Provider Note - ED v3 Provider Note: Chart Review: ED NOTES ED NOTES: Patient presents for evaluation of rash to bilateral hands that hasb een ongoing for the past few weeks. Pt is 1 week PP. Has not tried any otc meds. Denies drainage from rash. Has not had any new household or environment exposures. No other complaints. HISTORY OF PRESENTING ILLNESS NICHOL is a 22 year old Female and was seen by me at 29-Mar-2023 13:20. Triage Information: Most recent Vital Sign Value Date PAST MEDICAL HISTORY ALLERGIES/INTOLERANCE S: No Known Allergies HEALTH HISTORY: No documented data. 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 NEUROLOGICAL: Alert and oriented, no focal deficits, no motor or sensory deficits. SKIN: Skin normal color for race, warm, dry and intact except for versicular rash to bilateral hands mostly along fingers without erythema, edema or drainage. PSYCHIATRIC: Alert and oriented to person, place, time/situation. normal mood and affect. No apparent risk to self or others. CRITICAL CARE VITAL SIGNS: T PRBP SpO2O2(LPM) %FiO2 Method 29-Mar-2023 13:19:[id number] 6 98 MDM MDM/ED COURSE: Discussed Findings with: patient Data Reviewed: vital signs Treatment Plan: Rx triamcinolone 0.5% cream. Patient's clinical presentation is otherwise unremarkable at this time. Patient is discharged with instructions to follow-up with primary care or seek emergency medical attention for worsening symptoms or any new concerns. 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 [address] OFFICE VISIT Date of Service: 03/24/23 MR#: [id number] Acct: [id number] Name: NICHOL MCELROY Rep #: [id number] : 2000 Provider: FLAVIA toro Age/Sex: 22/F [place] [facility] [place]: Signed Intake Vital Signs 03/21/23 03:09 Height 5 ft 7 in Intake Visit Reasons: first time Chief Complaint: assessment Accompanied by: Significant Other Allergies No Known Allergies Allergy (Verified 03/18/23 14:23) : Yes PFSH PFSH Medical History (Updated 03/24/23 @ 00:02 by Gerard Gallo) Anemia Anxiety Asthma Depression macrosomia Orthostatic hypotension Surgical History (Updated 03/21/23 @ 04:16 by María Wolf) Olga teeth removed Social History Smoking Status: Current every day smoker History Elective abortions Hx Para 0 Spontaneous abortions Hx # Term Pregnancies Ectopic pregnancies Hx # Pregnancies Multiple births # of living children HPI HPI HPI: NICHOL MCELROY, is a 22 F who presents to the office today for assessment. History provided by the patient. ROS ROS Const Constitutional: Denies fever(s) or lethargy : Denies nipple discharge Skin Skin/Breast: Denies breast pain, breast skin changes or nipple discharge Details: q1-3 hours, 10-15 minutes to one side, milk came in yesterday, more full and leaking, nippel pain with most feedings- worse at the start of the feed then improves as the feed continues Exam Maternal Assessment Breast Assessment Bilateral Breasts: Full Nipple Assessment Bilateral Nipples: Everted Areolar Tissue Areolar Tissue: Pliable Assessment Baby Feeding History Is your baby latching onto the breast: Yes Number of Breast Feedings in 24 hours: 8-12 Minutes per breast: First Breast: 10-15 Supplements Supplement Type:: None Breast Pumping Type of Breast Pump: IsmaelakaaDiana Frequency: has not started pumping Goals Breast Feeding Goals: Exclusive Exam Const General: comfortable and no acute distress Orientation: alert and oriented x3 Chest Breast inspection: normal inspection of the breasts Breast palpation: normal palpation of the breasts Other: bilateral nipples slight reddened, small crack to center of right side, no bleeding present Resp Effort Inspection: normal respiratory effort Skin General: no rashes or lesions noted Psych Appearance: grossly normal Mental Status: mental status grossly normal Affect: normal affect Assessment and Plan Assessment and Plan (1) nipple pain: Plan: Assisted patient to get deeper latch for baby to prevent further nipple breakdown. Continue OTC cream, can call in and can order combination cream if needed. Follow up for any new/worsening sympto ms. (2) Care and examination of lactating mother: Plan: Educated on skin to skin, feeding on demand, milk storage, pumping. Fitted for correct flange size and recommended 24. Coding Level of Care Code Off vis,new,level 3 Diagnoses nipple pain O92.29 Care and examination of lactating mother Z39.1 03/24/23 2301 Date Katelynn Zazueta NP MAINTENANCE PARTS TECHNICIAN-C Cosigner Signature: Date (if applicable) CC: Normal [facility] Basophil percentageOrdered B y: Dr. Bland on 03-22-2023 WBC (Bld) [#/Vol] 10.3 10*3/uL 4.4-11.0 [facility] Blood erythrocytes count (nu mber/volume)Ordered By: Dr. Bland on 03-22-2023 RBC (Bld) [#/Vol] 3.30 10*6/uL 4.2-5.4 [facility] Blood hemoglobin measurement (mass/volume)Ordered By: Dr. Bland on 03-22-2023 Hemoglobin (Bld) [Mass/Vol] 10.7 g/dL 12.0-15.0 [facility] Blood platelet mean volumeOr dered By: Dr. Bland on 03-22-2023 Platelet mean volume (Bld) [Entitic vol] 11.8 fL 6.2-12.0 [facility] CBC-Complete Blood Cnt No Di ffon 03-22-2023 Erythrocyte distribution width (RBC) [Ratio] 15.1 % High 11.6-14.6 [facility] Comment on above: Order Comment: Reaso n for Laboratory Test Day #1 Performed By: #### L 100.0500 #### [facility] [address] [place], [address] Hematocrit (Bld) [Volume fraction] 32.4 % Low 37-47 [facility] Comment on above: Order Comment: Reaso n for Laboratory Test Day #1 Performed By: #### L 100.0500 #### [facility] [address] [place], [address] Hemoglobin (Bld) [Mass/Vol] 10.7 g/dL Low 12.0-15.0 [facility] Comment on above: Order Comment: Reaso n for Laboratory Test Day #1 Performed By: #### L 100.0500 #### [facility] [address] [place], [address] MCH (RBC) [Entitic mass] 32.4 pg High 27.0-32.0 [facility] Comment on above: Order Comment: Reaso n for Laboratory Test Day #1 Performed By: #### L 100.0500 #### [facility] [address] [place], [address] MCHC (RBC) [Mass/Vol] 33.0 g/dL Normal 32-36 [facility] Comment on above: Order Comment: Reaso n for Laboratory Test Day #1 Performed By: #### L 100.0500 #### [facility] [address] [place], [address] MCV (RBC) [Entitic vol] 98.2 fL Normal 81-99 [facility] Comment on above: Order Comment: Reaso n for Laboratory Test Day #1 Performed By: #### L 100.0500 #### [facility] [address] [place], [address] Platelet mean volume (Bld) [Entitic vol] 11.8 fL Normal 6.2-12.0 [facility] Comment on above: Order Comment: Reaso n for Laboratory Test Day #1 Performed By: #### L 100.0500 #### [facility] [address] [place], [address] Platelets (Bld) [#/Vol] 164 10*3/uL Normal 150-450 [facility] Comment on above: Order Comment: Reaso n for Laboratory Test Day #1 Performed By: #### L 100.0500 #### [facility] [address] [place], [address] RBC (Bld) [#/Vol] 3.30 10*6/uL Low 4.2-5.4 [facility] Comment on above: Order Comment: Reaso n for Laboratory Test Day #1 Performed By: #### L 100.0500 #### [facility] [address] [place], [address] RDW SD 53.4 fl High 35.1-43.9 [facility] Comment on above: Order Comment: Reaso n for Laboratory Test Day #1 Performed By: #### L 100.0500 #### [facility] [address] [place], [address] WBC (Bld) [#/Vol] 10.3 10*3/uL Normal 4.4-11.0 [facility] Comment on above: Order Comment: Reaso n for Laboratory Test Day #1 Performed By: #### L 100.0500 #### [facility] [address] [place], [address] Determination of erythrocyte mean corpuscular volume (MCV)Ordered By: Dr. Bland on 03-22-2023 MCV (RBC) [Entitic vol] 98.2 fL 81-99 [facility] Discharge Instructionon 05-0 Discharge Instruction [facility] Medical Records Department [address] [place] [address] Instructions for Home/Discharge Instructions 03/22/23 0846 MR#: [id number] Acct: [id number] Name: NICHOL MCELROY Rep #: [id number] : 2000 22 From: Lino Kumar MD PCP: LAKSHMI CHANEL Status:ADM IN Discharge Instructions Follow Up Care Please Follow Up With: Margo Bland MD When: 2 6 weeks Test Results: Test results from this visit will be discussed in further detail at your follow-up appointment, if applicable. Discharge Plan Admission Admit Date/Time: 03/21/23 03:50 Primary Reason for Your Visit: Vaginal delivery Attending Provider: Margo Bland Primary Care Provider: LAKSHMI CHANEL Consulting Providers: Gerald Avelar Discharge Orders/Prescriptions Prescriptions: New acetaminophen 500 mg Tablet 1,000 mg PO Q6H PRN PRN (Reason: Pain 1-10 Or Fever) Qty: 0 0RF ibuprofen 600 mg Tablet 600 mg PO Q6H PRN PRN (Reason: Pain Score 1-3) Qty: 0 0RF Continued iron 40 mg Capsule 45 mg PO DAILY Referrals / Follow Up: LAKSHMI CHANEL [Other] Disposition Disposition (needs filled in before D/C Order can be placed): Home, Self Care 03/22/23 0847 Lino Kumar MD CC: Abhijeet Avelar; LAKSHMI CHANEL Signed Normal [facility] Hematocrit Auto (Bld) [Volum e fraction]Ordered By: Dr. Bland on 03-22-2023 Hematocrit (Bld) [Volume fraction] 32.4 % 37-47 [facility] Laboratory - Hematology and Cell countsOrdered By: Dr. Bland on 03-22-2023 Erythrocyte distribution width (RBC) [Entitic vol] 53.4 fL 35.1-43.9 [facility] Erythrocyte distribution width (RBC) [Ratio] 15.1 % 11.6-14.6 [facility] MCH (RBC) [Entitic mass] 32.4 pg 27.0-32.0 [facility] MCHC Auto (RBC) [Mass/Vol]Or dered By: Dr. Bland on 03-22-2023 MCHC (RBC) [Mass/Vol] 33.0 g/dL 32-36 [facility] Platelets bldOrdered By: Dr. Bland on 03-22-2023 Platelets (Bld) [#/Vol] 164 10*3/uL 150-450 [facility] Absolute lymphocyte countOrd ered By: Abhijeet Avelar on 03-21-2023 Lymphocytes Auto (Unsp spec) [#/Vol] 1.89 10*3/uL 0.83-4.51 [facility] Basophil percentageOrdered B y: Abhijeet Avelar on 03-21-2023 Basophils/100 WBC (Bld) 0.4 % 0-1 [facility] Eosinophils/100 WBC (Bld) 0.8 % 0-5 [facility] Neutrophils (Bld) [#/Vol] 6.7 10*3/uL 2.0-7.7 [facility] Neutrophils/100 WBC (Bld) 69.7 % 47-70 [facility] Blood lymphocytes/100 leukoc ytesOrdered By: Abhijeet Avelar on 03-21-2023 Lymphocytes/100 WBC (Bld) 19.5 % 19-41 [facility] Blood monocytes/100 leukocyt esOrdered By: Abhijeet Avelar on 03-21-2023 Monocytes/100 WBC (Bld) 8.8 % 0-10 [facility] CBC W/Diff, Automatedon 05-0 8-2023 Absolute Lymph 1.89 X10 3/uL Normal 0.83-4.51 [facility] Comment on above: Performed By: #### Veronica DUNCAN, L100.0100 #### [facility] [address] [place], [address] Absolute Neut 6.7 X10 3/uL Normal 2.0-7.7 [facility] Comment on above: Performed By: #### Veronica DUNCAN, L100.0100 #### [facility] [address] [place], [address] Basophils/100 WBC (Bld) 0.4 % Normal 0-1 [facility] Comment on above: Performed By: #### Veronica DUNCAN, L100.0100 #### [facility] [address] [place], [address] Eosinophils/100 WBC (Bld) 0.8 % Normal 0-5 [facility] Comment on above: Performed By: #### Veronica DUNCAN, L100.0100 #### [facility] [address] [place], [address] Erythrocyte distribution width (RBC) [Ratio] 14.9 % High 11.6-14.6 [facility] Comment on above: Performed By: #### Veronica DUNCAN, L100.0100 #### [facility] [address] [place], [address] Hematocrit (Bld) [Volume fraction] 35.3 % Low 37-47 [facility] Comment on above: Performed By: #### Veronica DUNCAN, L100.0100 #### [facility] [address] [place], [address] Hemoglobin (Bld) [Mass/Vol] 11.7 g/dL Low 12.0-15.0 [facility] Comment on above: Performed By: #### Veronica DUNCAN, L100.0100 #### [facility] [address] [place], [address] IG% 0.800 Normal 0.0-0.9 [facility] Comment on above: Result Comment: IG% - Immature Granulocytes (promyelocytes, myelocytes and metamyelocytes) > 1% indicates that a LEFT SHIFT is Present. Performed By: #### Veronica DUNCAN, L100.0100 #### [facility] [address] [place], [address] Lymphocytes/100 WBC (Bld) 19.5 % Normal 19-41 [facility] Comment on above: Performed By: #### Veronica DUNCAN, L100.0100 #### [facility] [address] [place], [address] MCH (RBC) [Entitic mass] 32.1 pg High 27.0-32.0 [facility] Comment on above: Performed By: #### Veronica DUNCAN, L100.0100 #### [facility] [address] [place], [address] MCHC (RBC) [Mass/Vol] 33.1 g/dL Normal 32-36 [facility] Comment on above: Performed By: #### Veronica DUNCAN, L100.0100 #### [facility] [address] [place], [address] MCV (RBC) [Entitic vol] 97.0 fL Normal 81-99 [facility] Comment on above: Performed By: #### Veronica DUNCAN, L100.0100 #### [facility] [address] [place], [address] Monocytes/100 WBC (Bld) 8.8 % Normal 0-10 [facility] Comment on above: Performed By: #### Veronica DUNCAN, L100.0100 #### [facility] [address] [place], [address] Neutrophils/100 WBC (Bld) 69.7 % Normal 47-70 [facility] Comment on above: Performed By: #### Veronica DUNCAN, L100.0100 #### [facility] [address] [place], [address] Nucleated RBC (Bld) [#/Vol] 0 10*3/uL Normal 0-5 [facility] Comment on above: Performed By: #### Veronica DUNCAN, L100.0100 #### [facility] [address] [place], [address] Platelet mean volume (Bld) [Entitic vol] 12.1 fL High 6.2-12.0 [facility] Comment on above: Performed By: #### Veronica DUCNAN, L100.0100 #### [facility] [address] [place], [address] Platelets (Bld) [#/Vol] 172 10*3/uL Normal 150-450 [facility] Comment on above: Performed By: #### Veronica DUNCAN, L100.0100 #### [facility] [address] [place], [address] RBC (Bld) [#/Vol] 3.64 10*6/uL Low 4.2-5.4 [facility] Comment on above: Performed By: #### Veronica DUNCAN, L100.0100 #### [facility] [address] [place], [address] RDW SD 51.6 fl High 35.1-43.9 [facility] Comment on above: Performed By: #### Veronica DUNCAN, L100.0100 #### [facility] [address] [place], [address] WBC (Bld) [#/Vol] 9.7 10*3/uL Normal 4.4-11.0 [facility] Comment on above: Performed By: #### Veronica DUNCAN, L100.0100 #### [facility] [address] 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 She denies any gross vaginal bleeding. Patient has a history of nausea vomiting and early in the , depression, anemia during , vaping with nicotine dependence during . She has remote history of sports induced asthma but she has not required any medication since 2010. Maternal Data Information Final RUPINDER: 03/24/23 Gestational age: 39 5/7 PFSH [facility] Medical History (Updated 03/21/23 @ 08:[address] Margo Bland MD) Anemia Anxiety Asthma Depression macrosomia Orthostatic hypotension Home Medications iron 40 mg capsule 45 mg PO DAILY 03/11/23 [History Last Taken 03/19/23] Allergy/AdvReac Type Severity Reaction Status Date / Time No Known Allergies Allergy Verified 03/18/23 14:23 Surgical History (Updated 03/21/23 @ 04:16 by María Wolf) Olga teeth removed Social History Smoking Status: Current every day smoker History Elective abortions Hx Para 0 Spontaneous abortions Hx # Term Pregnancies Ectopic pregnancies Hx # Pregnancies Multiple births # of living children ROS Constitutional Constitutional: Denies fatigue, fever(s) or malaise Eyes Eyes: Denies change in vision ENT HEENT: Denies dizziness or headache(s) Cardiovascular Cardiovascular: Denies chest pain, dyspnea or lightheadedness Respiratory/Chest Respiratory/Chest: Denies cough or dyspnea Gastrointestinal Gastrointestinal: Denies change in bowel habits Genitourinary Genitourinary: Denies burning urination or genital lesions Integumentary Integumentary: Denies rash Neurologic Neurologic: Denies confusion, dizziness, headache(s), numbness or weakness Vital Signs Vital Signs Vital Signs: 03/21/23 03:13 03/21/23 03:13 03/21/23 03:13 Temperature Temperature Source Temporal Pulse Rate 93 Blood Pressure 124/75 H BP Systolic 124 BP Diastolic 75 Pulse Ox 03/21/23 03:15 03/21/23 03:15 03/21/23 03:13 Temperature 97.7 F L Temperature Source Pulse Rate 117 H Blood Pressure BP Systolic BP Diastolic Pulse Ox 99 03/21/23 05:25 03/21/23 05:25 03/21/23 05:26 Temperature Temperature Source Pulse Rate 85 Blood Pressure 113/73 BP Systolic 113 BP Diastolic 73 Pulse Ox 100 03/21/23 05:26 03/21/23 05:28 03/21/23 05:28 Temperature Temperature Source Pulse Rate 80 89 Blood Pressure 115/74 BP Systolic 115 BP Diastolic 74 Pulse Ox 03/21/23 05:30 03/21/23 05:30 03/21/23 05:32 Temperature Temperature Source Pulse Rate 91 Blood Pressure 115/72 BP Systolic 115 BP Diastolic 72 Pulse Ox 100 03/21/23 05:32 03/21/23 05:35 03/21/23 05:35 Temperature Temperature Source Pulse Rate 94 91 Blood Pressure BP Systolic BP Diastolic Pulse Ox 100 03/21/23 05:37 03/21/23 05:37 03/21/23 05:40 Temperature Temperature Source Pulse Rate 107 H 93 Blood Pressure 107/66 BP Systolic 107 BP Diastolic 66 Pulse Ox 03/21/23 05:40 03/21/23 05:42 03/21/23 05:42 Temperature Temperature Source Pulse Rate 95 Blood Pressure 100/55 L BP Systolic 100 BP Diastolic 55 Pulse Ox 99 03/21/23 05:45 03/21/23 05:45 03/21/23 05:48 Temperature Temperature Source Pulse Rate 98 Blood Pressure 118/58 L BP Systolic 118 BP Diastolic 58 Pulse Ox 99 03/21/23 05:48 03/21/23 05:32 03/21/23 05:50 Temperature Temperature Source Temporal Pulse Rate 96 95 Blood Pressure BP Systolic BP Diastolic Pulse Ox 03/21/23 05:50 03/21/23 05:32 03/21/23 05:52 Temperature 98.1 F Temperature Source Pulse Rate Blood Pressure 105/57 L BP Systolic 105 BP Diastolic 57 Pulse Ox 98 03/21/23 05:52 03/21/23 05:55 03/21/23 05:55 Temperature Temperature Source Pulse Rate 95 101 H Blood Pressure BP Systolic BP Diastolic Pulse Ox 99 03/21/23 05:57 03/21/23 05:57 03/21/23 06:00 Temperature Temperature Source Pulse Rate 90 103 H Blood Pressure 109/60 BP Systolic 109 BP Diastolic 60 Pulse Ox (more content not included)... Normal [facility] L509.8000on 03-21-2023 Syphilis Abs Non-Reactive Normal [facility] Comment on above: Performed By: #### L 509.8000 #### [facility] [address] [facility] [place], [address] Laboratory - Hematology and Cell countsOrdered By: Abhijeet Avelar on 03-21-2023 Immature granulocytes/100 WBC (Bld) 0.800 % 0.0-0.9 [facility] Comment on above: IG% - Immature Granu locytes (promyelocytes, myelocytes and metamyelocytes) > 1% indicates that a LEFT SHIFT is Present. Nucleated RBC/100 WBC (Bld) [Ratio] 0 % 0-5 [facility] Operative Reporton 3 Operative Report [facility] Medical Records Department [address] [place] [address] Operative Report 03/21/23 0941 MR#: [id number] Acct: [id number] Name: NICHOL MCELROY Rep #: [id number] : 2000 22 From: Margo Bland MD PCP: LAKSHMI CHANEL Status:ADM IN Location: [id number] Assessment Plan (1) (spontaneous vaginal delivery): Maternal Data Information Final RUPINDER: 03/24/23 Gestational age: 39 5/7 Vaginal Delivery Maternal Presentation Maternal Presentation: Active Labor Operative Information Date of Procedure: 03/21/23 Pre-Operative Diagnosis: labor Post-Operative Diagnosis: same Surgery / Procedure Performed: Spontaneous Vaginal Delivery Type of Anesthesia: Epidural Special Medications: none Drain: Shipman to straight drain Estimated Blood Loss: 400 Time of Delivery: 09:20 Findings Description of Procedure: A vigorous female infant was delivered LEV over a second-degree perineal laceration. The remainder the infant was delivered with maternal pushing and gentle traction only in less than 15 seconds. The Pitocin infusion was initiated for active management of the third stage. The cord was clamped and cut after cord pulsations ceased. The was attended to by the waiting nursing staff. The placenta was delivered spontaneously and intact. The cervix and vagina were intact. The second-degree perineal laceration was repaired with 2-0 and 3-0 Vicryl suture in a running standard fashion. Sponge and needle counts were correct. A vaginal sweep was completed by me. Presentation: LEV Amniotic Membrane Rupture Type: Spontaneous Amniotic Fluid Description: Moderate meconium Placental Delivery Description: Spontaneous Cord Vessel Description: 3 Vessels Infant A Gender: Female (1 minute): 8 (5 minute): 9 Delayed Cord Clamping: Yes Post Vaginal Delivery Medications Given After Delivery: IV Pitocin Episiotomy Description: None Laceration: 2nd degree Complication Complications: None 03/21/23 0945 Cosigner Signature (if applicable): CC: Abhijeet Avelar; LAKSHMI CHANEL; Dr. Margo Bland MD Signed Normal [facility] Serum Treponema species anti body detectionOrdered By: Abhijeet Jacinto on 03-21-2023 Treponema sp Ab Ql (S) Non-Reactive [facility] Type AND Screenon 03-21-2023 ABO and Rh group Nom (Bld) Blood group O Rh(D) positive Normal [facility] Comment on above: Order Comment: Labor Performed By: #### B TS, L100.0100 #### [facility] [address] [place], [address] URINE OB DIP B/Oon 3 Glucose Ql (U) Negative Neg mg/dL [facility] Protein.monoclonal (U) [Mass/Vol] Negative Neg mg/dL [facility] URINE OB DIP B/Oon 3 Glucose Ql (U) Negative Neg mg/dL [facility] Protein.monoclonal (U) [Mass/Vol] Negative Neg mg/dL [facility] Microscopic observation Gram stain Nom (Vag fld)on 02-23-2023 Bacterial Vaginosis BACTERIAL VAGINOSIS RESULT: Stain results consistent with normal vaginal deepti. Abnormal [facility] Bacterial Vaginosis Few Yeast Abnormal [facility] Bacterial Vaginosis Few Polymorphonuclea r leukocytes Abnormal [facility] TRICHOMONAS PREP/ANTIGENon 0 02-23-2023 T. vaginalis Ag IA Ql (Genital specimen) Negative Negative for Trichomonas Antigen [facility] No Panel Informationon 02-22 [facility] URINE OB DIP B/Oon 3 Glucose Ql (U) Negative Neg mg/dL [facility] Protein.monoclonal (U) [Mass/Vol] Negative Neg mg/dL [facility] URINE OB DIP B/Oon 3 Glucose Ql (U) Negative Neg mg/dL [facility] Protein.monoclonal (U) [Mass/Vol] Negative Neg mg/dL [facility] OBSTETRIC ULTRASOUND WHIon 0 01-28-2023 [facility] URINE OB DIP B/Oon 3 Glucose Ql (U) Negative Neg mg/dL [facility] Protein.monoclonal (U) [Mass/Vol] Negative Neg mg/dL [facility] URINE OB DIP B/Oon 3 Glucose Ql (U) Negative Neg mg/dL [facility] Protein.monoclonal (U) [Mass/Vol] Negative Neg mg/dL [facility] URINE OB DIP B/Oon 3 Glucose Ql (U) Negative Neg mg/dL [facility] Protein.monoclonal (U) [Mass/Vol] Negative Neg mg/dL [facility] OBSTETRIC ULTRASOUND WHIon 1 01-05-2022 [facility] URINE OB DIP B/Oon 2 Glucose Ql (U) Negative Neg mg/dL [facility] Protein.monoclonal (U) [Mass/Vol] Negative Neg mg/dL [facility] URINE OB DIP B/Oon 2 Glucose Ql (U) Negative Neg mg/dL [facility] Protein.monoclonal (U) [Mass/Vol] Negative Neg mg/dL [facility] NUCHAL TRANSLUCENCY WHIon [facility] URINE OB DIP B/Oon 2 Glucose Ql (U) Negative Neg mg/dL [facility] Protein.monoclonal (U) [Mass/Vol] Negative Neg mg/dL [facility] BASIC METABOLIC PANELon 10-0 -2021 Anion gap [Moles/Vol] 15 mmol/L Normal 10 - 20 [facility] Comment on above: Performed By: #### B MP #### [address] [address] Calcium [Mass/Vol] 9.2 mg/dL Normal 8.6 - 10.3 [facility] Comment on above: Performed By: #### B MP #### [address] [address] Chloride [Moles/Vol] 102 mmol/L Normal 98 - 107 [facility] Comment on above: Performed By: #### B MP #### [address] [address] Creatinine [Mass/Vol] 0.62 mg/dL Normal 0.50 - 1.05 [facility] Comment on above: Performed By: #### B MP #### [address] [address] eGFR FEMALE >90 Normal >90 [facility] Comment on above: Result Comment: CALC ULATIONS OF ESTIMATED GFR ARE PERFORMED USING THE 2020 CKD-EPI STUDY REFIT EQUATION WITHOUT THE RACE VARIABLE FOR THE IDMS-TRACEABLE CREATININE METHODS. https://jasn.asnjournals.org/content//ASN.616035 7424 Performed By: #### B MP #### [address] [address] Glucose [Mass/Vol] 84 mg/dL Normal 74 - 99 [facility] Comment on above: Performed By: #### B MP #### [address] [address] HCO3 (Bld) [Moles/Vol] 21 mmol/L Normal 21 - 32 [facility] Comment on above: Performed By: #### B MP #### [address] [address] Potassium [Moles/Vol] 3.6 mmol/L Normal 3.5 - 5.3 [facility] Comment on above: Performed By: #### B MP #### [address] [address] Sodium [Moles/Vol] 134 mmol/L Low 136 - 145 [facility] Comment on above: Performed By: #### B MP #### [address] [address] Urea nitrogen [Mass/Vol] 12 mg/dL Normal 6 - 23 [facility] Comment on above: Performed By: #### B MP #### [address] [address] CBC AND DIFFERENTIALon 08-19 Basophils (Bld) [#/Vol] 0.00 10*3/uL Normal 0.00 - 0.10 [facility] Comment on above: Performed By: #### C BCDF #### [address] [address] Basophils/100 WBC (Bld) 0.4 % Normal 0.0 - 2.0 [facility] Comment on above: Performed By: #### C BCDF #### [address] [address] Eosinophils (Bld) [#/Vol] 0.00 10*3/uL Normal 0.00 - 0.70 [facility] Comment on above: Performed By: #### C BCDF #### [address] [address] Eosinophils/100 WBC (Bld) 0.4 % Normal 0.0 - 6.0 [facility] Comment on above: Performed By: #### C BCDF #### [address] [address] Erythrocyte distribution width (RBC) [Ratio] 11.9 % Normal 11.5 - 14.5 [facility] Comment on above: Performed By: #### C BCDF #### [address] [address] Hematocrit (Bld) [Volume fraction] 40.4 % Normal 36.0 - 46.0 [facility] Comment on above: Performed By: #### C BCDF #### [address] [address] Hemoglobin (Bld) [Mass/Vol] 13.8 g/dL Normal 12.0 - 16.0 [facility] Comment on above: Performed By: #### C BCDF #### [address] [address] Lymphocytes (Bld) [#/Vol] 1.30 10*3/uL Normal 1.20 - 4.80 [facility] Comment on above: Performed By: #### C BCDF #### [address] [address] Lymphocytes/100 WBC (Bld) 17.7 % Normal 13.0 - 44.0 [facility] Comment on above: Performed By: #### C BCDF #### [address] [address] MCHC (RBC) [Mass/Vol] 34.1 g/dL Normal 32.0 - 36.0 [facility] Comment on above: Performed By: #### C BCDF #### [address] [address] MCV (RBC) [Entitic vol] 94 fL Normal 80 - 100 [facility] Comment on above: Performed By: #### C BCDF #### [address] [address] Monocytes (Bld) [#/Vol] 0.50 10*3/uL Normal 0.10 - 1.00 [facility] Comment on above: Performed By: #### C BCDF #### [address] [address] Monocytes/100 WBC (Bld) 7.4 % Normal 2.0 - 10.0 [facility] Comment on above: Performed By: #### C BCDF #### [address] [address] Neutrophils (Bld) [#/Vol] 5.30 10*3/uL Normal 1.20 - 7.70 [facility] Comment on above: Result Comment: Perc ent differential counts (%) should be interpreted in the context of the absolute cell counts (cells/L). Performed By: #### C BCDF #### [address] [address] Neutrophils/100 WBC (Bld) 74.1 % Normal 40.0 - 80.0 [facility] Comment on above: Performed By: #### C BCDF #### [address] [address] Platelets (Bld) [#/Vol] 185 10*3/uL Normal 150 - 450 [facility] Comment on above: Performed By: #### C BCDF #### [address] [address] RBC 4.31 x10E12/L Normal 4.00 - 5.20 [facility] Comment on above: Performed By: #### C BCDF #### [address] [address] WBC (Bld) [#/Vol] 7.2 10*3/uL Normal 4.4 - 11.3 [facility] Comment on above: Performed By: #### C BCDF #### [address] [address] Provider Note - ED v3on 10-0 Provider Note - ED v3 Provider Note: Chart Review: ED NOTES ED NOTES: ====HPI==== Patient is a 22-year-old female who is 9 weeks who presents to the emergency department with a chief complaint of nausea and vomiting in . She states that she has had nausea and vomiting for the past 2 days. She also complains of burning with urination. No abdominal pain. No vaginal bleeding or discharge. She states that she saw her SMALL BUSINESS BANKING OFFICER at last week, Dr. Jacinto, and had a confirmed IUP. Patient's [employer] BUSINESS B[employer]ING OFFICER instructed her to come to the emergency department for IV fluids as they felt they were likely dehydrated. PMHX: Denies Social HX: Vapes TOBACCO Denies ETOH Denies DRUGS ====Review of Systems==== 10 point system review is negative except for those specifically mentioned in history of present illness ====Physical Exam==== Constitutional/Genera l: Alert and oriented x3, well appearing, nontoxic, and in NAD. Head: Normocephalic and atraumatic. Eyes: EOMI, conjunctive normal, sclera nonicteric, subconjunctival layer is pink. Mouth: Oropharynx clear, handling secretions, no trismus, no asymmetry of the posterior oropharynx or uvular edema Neck: Supple, full ROM, no stridor, no crepitus, no meningeal signs. Trachea at midline. Respiratory: Lungs clear to auscultation bilaterally, no wheezes, rales, or rhonchi, not in respiratory distress. Cardiovascular: Regular rate, regular rhythm, no murmurs, gallops, or rubs, 2+ distal pulses. Chest: normal chest wall movement GI: Abdomen soft, nontender, nondistended, no organomegaly, no palpable masses, no rebound, guarding, or rigidity. Musculoskeletal: Moves all extremities x4, warm and well perfused, no clubbing, cyanosis, or edema, cap refill <3 seconds Integument: Skin warm and dry, no rashes. Neurologic: No focal deficits Psychiatric: Normal affect. ====ED Course and Medical Decision Making==== See MDM section for review of findings & plan of care. Portions of this note were dictated by speech recognition. An attempt at proof reading was made to minimize errors. Minor errors in urology physician assistant may be present. Please call if questions.. HISTORY OF PRESENTING ILLNESS NICHOL is a 22 year old Female and was seen by me at 19-Aug-2022 13:22 for a chief complaint of vomiting (c/o n/v x 2 days. also c/o burning with urination since yesterday. pt is approx 9weeks )(1). Triage Information: Most recent Vital Sign Value Date Temp (F): 97.8 08-19-2022 13:18 Temp (C): 36.5 08-19-2022 13:18 Heart Rate (beats/min): 101 08-19-2022 13:18 Respirations (breaths/min): 18 08-19-2022 13:18 SpO2 (%): 99 08-19-2022 13:18 BP Systolic (mm Hg): 124 08-19-2022 13:18 BP Diastolic (mm Hg): 71 08-19-2022 13:18 PAST MEDICAL HISTORY ALLERGIES/INTOLERANCE S: No Known Allergies HEALTH HISTORY: No documented data. OUTPATIENT MEDICATIONS: Home Medications Review Status for Reconciliation: Complete Med Status: Patient Currently Takes Medications Drug Name: ONDANSETRON HCL 4 MG TABLET Instructions: 1 tab(s) orally 3 times a day, As Needed SIGNIFICANT EVENTS: Past Medical History Description:ANXIETY/ ORTHOSTATIC HYPOTENSION Past Surgical History Description:WISDOM TEETH X 4 MDM MDM/ED COURSE: Patient is a 22-year-old female who presents to the emergency department for chief complaint of vomiting and . CBC and BMP are unremarkable. Patient's urine showed ketones. She did have 2+ bacteria but no leuks, negative nitrates, and no significant white cells. At this time no indication for treatment. It was recommended that if she develops any symptoms she had repeat urinalysis performed. Patient states that she is feeling much better after IV fluids. She states that she has been in contact with her [employer] BUSINESS [employer]ING OFFICER who has already prescribed her antiemetics today. DISPOSITION Diagnosis/Annotation: ED Dx Name:Nausea/vomiting in Code:O21.9 Disposition: discharged Type: home CONSULT CRITICAL CARE TIME Is this a critically ill patient: no Electronic Signatures: Shivani Dixon (PAC) (Signed 19-Aug-2022 15:17) Authored: ED Notes, HPI, PMH, MDM/ED Course, Clinical Impression, Attestation, Chart Review, Scores Last Updated: 19-Aug-2022 15:17 by Shivani Dixon (PAC) References: 1. Data Referenced From Triage - ED 19-Aug-2022 13:18 Normal [facility] Risk Screen - Adult Emergenc yon 08-19-2022 Risk Screen - Adult Emergency Preferred Language: Preferred Language: Preferred Language for Discussing Health Care (patient/designee)Omar scott Patient Preferred Pharmacy: Patient Preferred Pharmacy Statement: I have reviewed and updated the patient's preferred pharmacy selection for today's visit. Advanced Directives: Advance Directive/DNRno Family Violence Adult: Abuse Screen: Are you or have you been threatened or abused physically, emotionally, or sexually by anyoneno Learning Assessment (Patient): Learning Assessment (Patient): Patient is Able to be Assessed for Learningyes Factors Influencing Readiness to Learnn/a Factors that Impact Ability to Learnnone Devices/Methods Used to Communicatenone Learning Preferencesverbal instruction; written material Cultural Considerationsnone Developmental Considerationsnone Pentecostalism Considerationsnone Learning Assessment (Other Learner): Learning Assessment (Other Learner): Other learner availableyes... Learnerfamily Factors Influencing Readiness to Learnn/a Factors that Impact Ability to Learnnone Devices/Methods Used to Communicatenone Learning Preferencesverbal instruction, written material Cultural Considerationsnone Developmental Considerationsnone Pentecostalism Considerationsnone Pressure Injury/TB/Substance: Pressure Injury: Do you have a coughno Smoking Statusoccasional user (use that is infrequent, sporadic, not on a daily basis) Tobacco Cessation Education (provide if tobacco use within the last 12 mos) patient declined Alcohol Usedenies Drug Usedenies Admission Risk Screen: Significant IndicatorsComplete CAGE: CAGE: Is this an injured patient at a Trauma Center ([facility]/[place]/Juliet/Jeanette dorado/[place]): no Electronic Signatures: Malka Fajardo (RN) (Signed 19-Aug-2022 13:24) Authored: Preferred Language, Patient Preferred Pharmacy, Advanced Directives, Family Violence Adult, Learning Assessment (Patient), Learning Assessment (Other Learner), Pressure Injury/TB/Substance, Pressure Injury, CAGE Last Updated: 19-Aug-2022 13:24 by Malka Fajardo (RN) [facility] Triage - EDon 08-19-2022 Triage - ED Quick Triage: Are You no Have You Given In The Last 6 Weeksno Are You Currently Breastfeedingno Chart Review: PRIMARY ASSESSMENT ABCD Normal Findings: airway open and patent, circulation normal and alert and oriented ARRIVAL INFORMATION Means of Arrival: Ambulatory Mode of Arrival: private vehicle Arrival From: home Accompanied By: self Language: Spoken Language Preferred: Ecuadorean Reading Language Preferred: Ecuadorean Present on Arrival: Device Present on Arrival to ED: no CHIEF COMPLAINT NICHOL B NAVI is a Female patient with a chief complaint of vomiting (c/o n/v x 2 days. also c/o burning with urination since yesterday. pt is approx 9weeks ). Triage Date/Time: 19-Aug-2022 13:08 RACHEL: 3 Pain Rating (0-10): 0 = None Vital Signs: Temperature: 97.8F ( 36.5C) taken temporal Blood Pressure: 124/71 Mean: Heart Rate: 101 Respiratory Rate: 18 Pulse Oximetry: 99% on room air, no respiratory support. Height: 5 feet 7.00 inches. 170.1 CM Weight: 155.4 pounds. Calculated 70.5 kg. (stated) Calculated BMI (kg/m2): 24.365 Calculated BSA (m2) 1.83 [place] Coma Scale: Best Eye Response: (E4) spontaneous Best Motor Response: (M6) obeys commands Best Verbal Response: (V5) oriented Neva Score: 15 Allergies: no Patient has homicidal thoughts: no Symptoms Are POSITIVE For: nausea and vomiting. Symptoms Are Negative For: diarrhea. Last Known Well: unknown Risk Screens Suicide Risk Screen In the Past Month: Have you wished you were or wished you could go to sleep and not wake up no In the Past Month: Have you had any actual thoughts of killing yourself no In Your Lifetime: Have you ever done anything, started to do anything, or prepared to do anything to end your life no Parker Fall Scale Screening Has the patient fallen before (or is the patient in the ED as a result of a fall) has not had a fall Does the patient have an impaired gait does not have impaired gait Is the patient cognitively impaired not cognitively impaired Interventions: Parker Fall Interventions: LOW INTERVENTIONS: *patient oriented to surroundings and call system, * patient/family falls education completed and documented, *patients fall status communicated during bedside handoff, *whiteboard updated, *mode of toileting discussed with patient, *bed in low position with brakes locked, *call light in reach, * non-skid footwear TRAVEL HISTORY Travel History Coronavirus Screening: no exposure or symptoms Travel Exposure History: NO travel to International locations in the past 30 days PAIN Pain Scale Used: REZA Pain Rating (0-10): 0 = None Past Medical History: Past Medical History Reviewedyes WISDOM TEETH X 4: Past Surgical History, Active ANXIETY/ ORTHOSTATIC HYPOTENSION: Past Medical History, Active Electronic Signatures: Malka Fajardo (TRAVIS) (Signed 19-Aug-2022 13:22) Entered: Risk Screens, Pain, Arrival, ABCD, Travel History, Chart Review, Scores, Past Medical History Authored: Quick Triage, Risk Screens, Pain, Arrival, ABCD, Travel History, Chart Review, Scores, Past Medical History Last Updated: 19-Aug-2022 13:22 by Malka Fajardo (RN) Normal [facility] UA MICROSCOPICon 08-19-2022 BACTERIA 2+ /HPF Abnormal [facility] Comment on above: Performed By: #### U AMIC #### [place] [address] CA OXALATE CRYSTAL 1+ /HPF Normal [facility] Comment on above: Performed By: #### U AMIC #### [place] [address] Mucus Ql (Urine sed) 4+ /LPF Normal [facility] Comment on above: Performed By: #### U AMIC #### [place] [address] RBC 2 /HPF Normal 0-5 [facility] Comment on above: Performed By: #### U AMIC #### [place] [address] SQUAMOUS EPITH. CELLS 4 /HPF Normal [facility] Comment on above: Performed By: #### U AMIC #### [place] [address] WBC 3 /HPF Normal 0-5 [facility] Comment on above: Performed By: #### U AMIC #### [place] [address] URINALYSIS WITH CULTURE IF I NDICATEDon 08-19-2022 Appearance (U) HAZY Normal CLEAR [facility] Comment on above: Performed By: #### U ARFX #### [place] [address] Bilirubin Ql (U) Negative Normal NEGATIVE [facility] Comment on above: Performed By: #### U ARFX #### [place] [address] Color (U) Tianna Normal STRAW,YELLOW [facility] Comment on above: Performed By: #### U ARFX #### [place] [address] Glucose Ql (U) Negative Normal NEGATIVE [facility] Comment on above: Performed By: #### U ARFX #### [place] [address] Hemoglobin Ql (U) Negative Normal NEGATIVE [facility] Comment on above: Performed By: #### U ARFX #### [place] [id number] Ketones Ql (U) 80(2+) Abnormal NEGATIVE [facility] Comment on above: Performed By: #### U ARFX #### [place] [id number] Leukocyte esterase Test strip Ql (U) Negative Normal NEGATIVE [facility] Comment on above: Performed By: #### U ARFX #### [place] [id number] Nitrite Ql (U) Negative Normal NEGATIVE [facility] Comment on above: Performed By: #### U ARFX #### [place] [address] pH (U) 5.0 [pH] Normal 5.0 - 8.0 [facility] Comment on above: Performed By: #### U ARFX #### [place] [address] Protein Ql (U) 100(2+) Abnormal NEGATIVE [facility] Comment on above: Performed By: #### U ARFX #### [place] [id number] Specific gravity (U) [Rel density] 1.033 Normal 1.005 - 1.035 [facility] Comment on above: Performed By: #### U ARFX #### [place] [id number] Urobilinogen (U) [Mass/Vol] 4.0 mg/dL High 0.0 - 1.9 [facility] Comment on above: Result Comment: SOME PIGMENTS AND MEDICATIONS MAY CAUSE A FALSE POSITIVE UROBILINOGEN Performed By: #### U ARFX #### [place] [id number] THYROXINE BINDING GLOB.on THYROXINE BINDING GLOB. 31.2 ug/mL High 13.0-30.0 [facility] Comment on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 [employer] Work Phone: [facility] 08-27-2025 15:46-0400 Systolic blood pressure 100 mm[Hg] 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 [employer] Work Phone: [facility] 05-30-2025 13:41-0400 Body mass index (BMI) [Ratio] 23.59 kg/m2 Lino Kumar MD Work Phone: [facility] 05-30-2025 13:41-0400 Body weight 68.31 kg Lino Kumar MD Work Phone: [facility] 05-30-2025 13:41-0400 Diastolic blood pressure 60 mm[Hg] Lino Kumar MD Work Phone: [facility] 05-30-2025 13:41-0400 Systolic blood pressure 110 mm[Hg] Lino Kumar MD Work Phone: [facility] 04-18-2025 13:11-0400 Body height 170.2 cm Chula Plotts INSPECTOR [employer] COMM[employer]IES.CNM Work Phone: [facility] 04-18-2025 13:11-0400 Body mass index (BMI) [Ratio] 22.4 kg/m2 Chula Plotts INSPECTOR [employer].CNM Work Phone: [facility] 04-18-2025 13:11-0400 Body weight 64.86 kg Chula Plotts INSPECTOR [employer].CNM Work Phone: [facility] 04-18-2025 13:11-0400 Diastolic blood pressure 64 mm[Hg] Chula Plotts INSPECTOR [employer].CNM Work Phone: [facility] 04-18-2025 13:11-0400 Systolic blood pressure 110 mm[Hg] Chula Plotts INSPECTOR [employer].CNM Work Phone: [facility] 04-10-2025 21:30-0400 Body height 170.2 cm 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 [employer] Work Phone: [facility] 04-10-2025 21:30-0400 Body mass index (BMI) [Ratio] 21.93 kg/m2 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 [employer] Work Phone: [facility] 04-10-2025 21:30-0400 Body temperature 98.8 [degF] 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 [employer] Work Phone: [facility] 04-10-2025 21:30-0400 Body weight 63.5 kg 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 [employer] Work Phone: [facility] 04-10-2025 21:30-0400 Diastolic blood pressure 82 mm[Hg] 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 [employer] Work Phone: [facility] 04-10-2025 21:30-0400 Heart rate 98 /min 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 [employer] Work Phone: [phone] [place] [address] 04-10-2025 21:30-0400 Respiratory rate 20 /min 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 [employer] Work Phone: [phone])[phone] [place] [address] 04-10-2025 21:30-0400 SaO2% (BldA) [Mass fraction] 100 % 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 [employer] Work Phone: [phone] [place] [address] 04-10-2025 21:30-0400 Systolic blood pressure 111 mm[Hg] 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 [employer] Work Phone: 0(254)[phone] [place] [address] 04-09-2025 11:38-0400 Body height 170.2 cm Erica Warren INSPECTOR [employer] Work Phone: 7(174)[phone] [place] [address] 04-09-2025 11:38-0400 Body mass index (BMI) [Ratio] 21.93 kg/m2 Erica Warren INSPECTOR [employer] Work Phone: 0(309)[phone] [place] [address] 04-09-2025 11:38-0400 Body temperature 98.2 [degF] Erica Warren INSPECTOR [employer] Work Phone: [phone](304)[phone] [place] [address] 04-09-2025 11:38-0400 Body weight 63.5 kg Erica Warren INSPECTOR [employer] Work Phone: 8(265)[phone] [place] [address] 04-09-2025 11:38-0400 Diastolic blood pressure 69 mm[Hg] Ericakarla Warren INSPECTOR [employer] Work Phone: 6(842)[phone] [place] [address] 04-09-2025 11:38-0400 Heart rate 98 /min Erica Warren INSPECTOR [employer] Work Phone: 3([phone] [place] [address] 04-09-2025 11:38-0400 Respiratory rate 16 /min Ericakarla Warren INSPECTOR [employer] Work Phone: 0([phone] [place] [address] 04-09-2025 11:38-0400 SaO2% (BldA) [Mass fraction] 97 % Ericakarla Warren INSPECTOR [employer] Work Phone: 1(888)[phone] [place] [address] 04-09-2025 11:38-0400 Systolic blood pressure 100 mm[Hg] Erica Briana INSPECTOR [employer] Work Phone: [facility] 07-24-2024 11:20-0400 Body height 170.2 cm Julio Cesar Keenan INSPECTOR [employer]GR[employer]ULT[employer] COMMOD[employer]IES-[employer]INE[employer]TER Work Phone: [facility] 07-24-2024 11:20-0400 Body mass index (BMI) [Ratio] 21.3 kg/m2 Julio Cesar Keenan INSPECTOR [employer]GRICULTURAL COMMODITIES-[employer]INE[employer]TER Work Phone: [facility] 07-24-2024 11:20-0400 Body temperature 98.4 [degF] Julio Cesar Keenan INSPECTOR [employer]GR[employer]ULT[employer] COMMODITIES-[employer]INE[employer]TER Work Phone: [facility] 07-24-2024 11:20-0400 Body weight 61.69 kg Julio Cesar Keenan INSPECTOR [employer]GR[employer]ULTURAL COMMODITIES-[employer]INE[employer]TER Work Phone: [facility] 07-24-2024 11:20-0400 Diastolic blood pressure 81 mm[Hg] Julio Cesar Keenan INSPECTOR [employer]GRICULTURAL COMMODITIES-[employer]INE[employer] SETTER Work Phone: [facility] 07-24-2024 11:20-0400 Heart rate 105 /min Julio Cesar Keenan INSPECTOR [employer]GR[employer]ULTURAL COMMODITIES-[employer]INE[employer] SETTER Work Phone: [facility] 07-24-2024 11:20-0400 Respiratory rate 18 /min Julio Cesar Keenan INSPECTOR [employer]GR[employer]ULTURAL COMMODITIES-[employer]INE[employer] SETTER Work Phone: [facility] 07-24-2024 11:20-0400 SaO2% (BldA) [Mass fraction] 100 % Julio Cesar Keenan INSPECTOR [employer]GR[employer]ULTURAL COMMODITIES-[employer]INE[employer] SETTER Work Phone: [facility] 07-24-2024 11:20-0400 Systolic blood pressure 112 mm[Hg] Julio Cesar Keenan INSPECTOR [employer]GR[employer] COMMODITIES-[employer]INE[employer] SETTER Work Phone: [facility] 07-17-2024 10:06-0400 Body height 170.2 cm 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 AGRICULTURAL COMMODITIES-[employer]INE[employer] SETTER Work Phone: [facility] 07-17-2024 10:06-0400 Body mass index (BMI) [Ratio] 21.31 kg/m2 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 AGRICULTURAL COMMODITIES-[employer]INE[employer] SETTER Work Phone: [facility] 07-17-2024 10:06-0400 Body weight 61.72 kg 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 AGR[employer]ULTURAL COMMODITIES-[employer]INE[employer] SETTER Work Phone: [facility] 07-17-2024 10:06-0400 Diastolic blood pressure 70 mm[Hg] 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 AGR[employer]ULTURAL COMMODITIES-[employer]INE[employer] SETTER Work Phone: [facility] 07-17-2024 10:06-0400 Heart rate 53 /min 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 AGR[employer]ULTURAL COMMODITIES-[employer]INE[employer] SETTER Work Phone: [facility] 07-17-2024 10:06-0400 Systolic blood pressure 118 mm[Hg] 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 AGR[employer]ULTURAL COMMODITIES-[employer]INE[employer] SETTER Work Phone: [facility] 07-09-2024 18:05-0400 Body height 170.2 cm 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 AGRICULTURAL COMMODITIES-[employer]INE[employer] SETTER Work Phone: [facility] 07-09-2024 18:05-0400 Body mass index (BMI) [Ratio] 21.14 kg/m2 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 AGRICULTURAL COMMODITIES-[employer]INE[employer] SETTER Work Phone: [facility] 07-09-2024 18:05-0400 Body temperature 98.29 [degF] 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 AGR[employer]ULTURAL COMMODITIES-[employer]INE[employer] SETTER Work Phone: [facility] 07-09-2024 18:05-0400 Body weight 61.24 kg 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 AGR[employer]URAL COMMODITIES-[employer]INE[employer] SETTER Work Phone: [facility] 07-09-2024 18:05-0400 Diastolic blood pressure 78 mm[Hg] 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 AGR[employer]ULTURAL COMMODITIES-[employer]INE[employer] SETTER Work Phone: [facility] 07-09-2024 18:05-0400 Heart rate 83 /min 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 AGR[employer]ULTURAL COMMODITIES-[employer]INE[employer] SETTER Work Phone: [facility] 07-09-2024 18:05-0400 Respiratory rate 16 /min 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 AGR[employer]ULTURAL COMMODITIES-[employer]INE[employer] SETTER Work Phone: [facility] 07-09-2024 18:05-0400 SaO2% (BldA) [Mass fraction] 100 % 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 AGR[employer]ULT[employer] COMMODITIES-[employer]INE[employer] SETTER Work Phone: [facility] 07-09-2024 18:05-0400 Systolic blood pressure 120 mm[Hg] 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 AGRICULTURAL COMMODITIES-[employer]INESTONE SETTER Work Phone: [facility] 06-11-2024 10:01-0400 Body height 170.8 cm Pina Hasaray INSPECTOR AGRICULTURAL COMMODITIES.RHINESTONE SETTER Work Phone: [facility] 06-11-2024 10:01-0400 Body mass index (BMI) [Ratio] 21.14 kg/m2 Pina Haury INSPECTOR AGRICULTURAL COMMODITIES.RHINESTONE SETTER Work Phone: [facility] 06-11-2024 10:01-0400 Body weight 61.69 kg Pina Hasaray INSPECTOR AGRICULTURAL COMMODITIES.RHINESTONE SETTER Work Phone: [facility] 06-11-2024 10:01-0400 Diastolic blood pressure 66 mm[Hg] Pina Haury INSPECTOR AGRICULTURAL COMMODITIES.RHINESTONE SETTER Work Phone: [facility] 06-11-2024 10:01-0400 Heart rate 120 /min Pina Haury INSPECTOR AGRICULTURAL COMMODITIES.RHINESTONE SETTER Work Phone: [facility] 06-11-2024 10:01-0400 Respiratory rate 14 /min Pina Haury INSPECTOR AGRICULTURAL COMMODITIES.RHINESTONE SETTER Work Phone: [facility] 06-11-2024 10:01-0400 SaO2% (BldA) [Mass fraction] 100 % Pina Haury INSPECTOR AGRICULTURAL COMMODITIES.RHINESTONE SETTER Work Phone: [facility] 06-11-2024 10:01-0400 Systolic blood pressure 116 mm[Hg] Pina Haury INSPECTOR AGRICULTURAL COMMODITIES.[employer]INESTONE SETTER Work Phone: [facility] 01-13-2024 16:57-0500 Diastolic blood pressure 54 mm[Hg] 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 AGRICULTURAL COMMODITIES-[employer]INE[employer] SETTER Work Phone: [facility] 01-13-2024 16:57-0500 Heart rate 72 /min 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 AGRICULTURAL COMMODITIES-[employer]INE[employer] SETTER Work Phone: [facility] 01-13-2024 16:57-0500 Respiratory rate 18 /min Callysalomón Hedrick INSPECTOR AGRICULTURAL COMMODITIES-[employer]INE[employer] SETTER Work Phone: [facility] 01-13-2024 16:57-0500 SaO2% (BldA) [Mass fraction] 99 % Callysalomón Hedrick INSPECTOR AGRICULTURAL COMMODITIES-[employer]INE[employer] SETTER Work Phone: [facility] 01-13-2024 16:57-0500 Systolic blood pressure 97 mm[Hg] Callysalomón Hedrick INSPECTOR AGRICULTURAL COMMODITIES-[employer]INE[employer] SETTER Work Phone: [facility] 01-13-2024 14:10-0500 Body height 170.2 cm Callysalomón Hedrick INSPECTOR AGRICULTURAL COMMODITIES-[employer]INE[employer] SETTER Work Phone: [facility] 01-13-2024 14:10-0500 Body mass index (BMI) [Ratio] 21.14 kg/m2 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 AGRICULTURAL COMMODITIES-[employer]INE[employer] SETTER Work Phone: [facility] 01-13-2024 14:10-0500 Body temperature 99.39 [degF] Callysalomón Hedrick INSPECTOR AGRICULTURAL COMMODITIES-[employer] SETTER Work Phone: [facility] 01-13-2024 14:10-0500 Body weight 61.24 kg Callysalomón Hedrick INSPECTOR AGR[employer]URAL COMMODITIES-[employer]INE[employer] SETTER Work Phone: [facility] 10-08-2023 11:44-0500 Body height 170.2 cm Eulogio Newbill PA-C Work Phone: [facility] 10-08-2023 11:44-0500 Body mass index (BMI) [Ratio] 21.61 kg/m2 Eulogio Newbill PA-C Work Phone: [facility] 10-08-2023 11:44-0500 Body temperature 97.3 [degF] Eulogio Newbill PA-C Work Phone: [facility] 10-08-2023 11:44-0500 Body weight 62.6 kg Eulogio Newbill PA-C Work Phone: [facility] 10-08-2023 11:44-0500 Diastolic blood pressure 74 mm[Hg] Eulogio Newbill PA-C Work Phone: [facility] 10-08-2023 11:44-0500 Heart rate 111 /min Eulogio Newbill PA-C Work Phone: [facility] 10-08-2023 11:44-0500 Respiratory rate 16 /min Eulogio Newbill PA-C Work Phone: [facility] 10-08-2023 11:44-0500 SaO2% (BldA) [Mass fraction] 98 % Eulogio Newbill PA-C Work Phone: [facility] 10-08-2023 11:44-0500 Systolic blood pressure 109 mm[Hg] Eulogio Newbill PA-C Work Phone: [facility] 09-21-2023 13:03-0500 Body height 167.6 cm 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 AGRICULTURAL COMMODITIES-[employer]INE[employer] SETTER Work Phone: [facility] 09-21-2023 13:03-0500 Body mass index (BMI) [Ratio] 22.6 kg/m2 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 AGRICULTURAL COMMODITIES-[employer]INE[employer] SETTER Work Phone: [facility] 09-21-2023 13:03-0500 Body weight 63.5 kg 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 AGRIC[employer]URAL COMMODITIES-[employer]INE[employer] SETTER Work Phone: [facility] 09-21-2023 13:03-0500 Diastolic blood pressure 80 mm[Hg] 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 AGRICULTURAL COMMODITIES-[employer]INE[employer] SETTER Work Phone: [facility] 09-21-2023 13:03-0500 Heart rate 112 /min 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 AGR[employer]ULTURAL COMMODITIES-[employer] SETTER Work Phone: [facility] 09-21-2023 13:03-0500 Systolic blood pressure 112 mm[Hg] 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 AGRIC[employer]URAL COMMODITIES-[employer] SETTER Work Phone: [facility] 06-10-2023 16:00-0400 Body height 170 cm Rodríguez Jones Other Phone: [facility] 06-10-2023 16:00-0400 Body temperature 97.7 [degF] Rodríguez Jones Other Phone: [facility] 06-10-2023 16:00-0400 Diastolic blood pressure 77 mm[Hg] Rodríguez Jones Other Phone: [facility] 06-10-2023 16:00-0400 Heart rate 113 /min Rodríguez Jones Other Phone: [facility] 06-10-2023 16:00-0400 Respiratory rate 18 /min Rodríguez Jones Other Phone: [facility] 06-10-2023 16:00-0400 SaO2% (BldA) [Mass fraction] 98 % Rodríguez Jones Other Phone: [facility] 06-10-2023 16:00-0400 Systolic blood pressure 112 mm[Hg] Rodríguez Jones Other Phone: [facility] 03-22-2023 20:50-0400 Body temperature 98.3 [degF] [facility] 03-22-2023 20:50-0400 Diastolic blood pressure 85 mm[Hg] [facility] 03-22-2023 20:50-0400 Heart rate 98 /min [facility] 03-22-2023 20:50-0400 Respiratory rate 16 /min [facility] 03-22-2023 20:50-0400 SaO2% (BldA) [Mass fraction] 98 % [facility] 03-22-2023 20:50-0400 Systolic blood pressure 120 mm[Hg] [facility] 03-21-2023 03:09-0400 Body height 170.18 cm [facility] 03-21-2023 03:09-0400 Body mass index (BMI) [Ratio] 27.4 kg/m2 [facility] 03-21-2023 03:09-0400 Body weight 79.6 kg [facility] 03-18-2023 14:59-0400 Diastolic blood pressure 70 mm[Hg] [facility] 03-18-2023 14:59-0400 Heart rate 98 /min [facility] 03-18-2023 14:59-0400 Respiratory rate 16 /min [facility] 03-18-2023 14:59-0400 SaO2% (BldA) [Mass fraction] 98 % [facility] 03-18-2023 14:59-0400 Systolic blood pressure 113 mm[Hg] [facility] 03-18-2023 14:20-0400 Body height 170.18 cm [facility] 03-18-2023 14:20-0400 Body mass index (BMI) [Ratio] 27.2 kg/m2 [facility] 03-18-2023 14:20-0400 Body temperature 97.8 [degF] [facility] 03-18-2023 14:20-0400 Body weight 78.92 kg [facility] 03-18-2023 13:28-0400 Body weight 78.93 kg Tennille Jacinto MD Work Phone: [facility] 03-18-2023 13:28-0400 Diastolic blood pressure 70 mm[Hg] Tennille Jacinto MD Work Phone: [facility] 03-18-2023 13:28-0400 Systolic blood pressure 104 mm[Hg] Tennille Jacinto MD Work Phone: [facility] 03-16-2023 14:09-0400 Body temperature 97.4 [degF] [facility] 03-16-2023 14:09-0400 Diastolic blood pressure 64 mm[Hg] [facility] 03-16-2023 14:09-0400 Heart rate 96 /min [facility] 03-16-2023 14:09-0400 Respiratory rate 16 /min [facility] 03-16-2023 14:09-0400 SaO2% (BldA) [Mass fraction] 97 % [facility] 03-16-2023 14:09-0400 Systolic blood pressure 113 mm[Hg] [facility] 03-16-2023 13:12-0400 Body height 170.18 cm [facility] 03-16-2023 13:12-0400 Body mass index (BMI) [Ratio] 27.8 kg/m2 [facility] 03-16-2023 13:12-0400 Body weight 80.73 kg [facility] 03-14-2023 15:30-0400 Body weight 80.74 kg Vilma Painter APRN.CNM Work Phone: [facility] 03-14-2023 15:30-0400 Diastolic blood pressure 70 mm[Hg] Vilma Painter APRN.CNM Work Phone: [facility] 03-14-2023 15:30-0400 Systolic blood pressure 110 mm[Hg] Vilma Painter APRN.CNM Work Phone: [facility] 03-14-2023 12:37-0400 Diastolic blood pressure 68 mm[Hg] [facility] 03-14-2023 12:37-0400 Heart rate 97 /min [facility] 03-14-2023 12:37-0400 Respiratory rate 16 /min [facility] 03-14-2023 12:37-0400 Systolic blood pressure 111 mm[Hg] [facility] 03-14-2023 11:33-0400 Body height 170.18 cm [facility] 03-14-2023 11:33-0400 Body mass index (BMI) [Ratio] 27.3 kg/m2 [facility] 03-14-2023 11:33-0400 Body temperature 97.4 [degF] [facility] 03-14-2023 11:33-0400 Body weight 79.37 kg [facility] 03-14-2023 11:33-0400 SaO2% (BldA) [Mass fraction] 100 % [facility] 03-11-2023 11:30-0400 Diastolic blood pressure 61 mm[Hg] [facility] 03-11-2023 11:30-0400 Heart rate 83 /min [facility] 03-11-2023 11:30-0400 Respiratory rate 16 /min [facility] 03-11-2023 11:30-0400 Systolic blood pressure 95 mm[Hg] [facility] 03-11-2023 10:11-0400 Body height 170.18 cm [facility] 03-11-2023 10:11-0400 Body mass index (BMI) [Ratio] 26.9 kg/m2 [facility] 03-11-2023 10:11-0400 Body temperature 96.7 [degF] [facility] 03-11-2023 [id number] Body weight 78.01 kg [facility] 03-11-2023 [id number] SaO2% (BldA) [Mass fraction] 98 % [facility] 03-02-2023 15:15-0400 Body weight 78.93 kg Tennille Jacinto MD Work Phone: [facility] 03-02-2023 15:15-0400 Diastolic blood pressure 68 mm[Hg] Tennille Jacinto MD Work Phone: [facility] 03-02-2023 15:15-0400 Systolic blood pressure 104 mm[Hg] Tennille Jacinto MD Work Phone: [facility] 02-22-2023 13:38-0400 Body weight 78.02 kg Lino Kumar MD Work Phone: [facility] 02-22-2023 13:38-0400 Diastolic blood pressure 62 mm[Hg] Lino Kumar MD Work Phone: [facility] 02-22-2023 13:38-0400 Systolic blood pressure 104 mm[Hg] Lino Kumar MD Work Phone: [facility] 02-11-2023 13:26-0400 Body weight 78.38 kg Tennille Jacinto MD Work Phone: [facility] 02-11-2023 13:26-0400 Diastolic blood pressure 60 mm[Hg] Tennille Jacinto MD Work Phone: [facility] 02-11-2023 13:26-0400 Systolic blood pressure 100 mm[Hg] Tennille Jacinto MD Work Phone: [facility] 01-28-2023 10:57-0400 Body weight 77.56 kg Chula Plotts INSPECTOR AGRIC[employer] COMMODITIES.CNM Work Phone: [facility] 01-28-2023 10:57-0400 Diastolic blood pressure 64 mm[Hg] Chula Plotts INSPECTOR [employer]GRIC[employer] COMMODITIES.CNM Work Phone: [facility] 01-28-2023 10:57-0400 Systolic blood pressure 106 mm[Hg] Chula Plotts INSPECTOR AGRICULT[employer] COMMODITIES.CNM Work Phone: [facility] 01-14-2023 12:54-0500 Body weight 77.02 kg Lino Kumar MD Work Phone: [facility] 01-14-2023 12:54-0500 Diastolic blood pressure 66 mm[Hg] Lino Kumar MD Work Phone: [facility] 01-14-2023 12:54-0500 Systolic blood pressure 100 mm[Hg] Lino Kumar MD Work Phone: [facility] 12-31-2022 10:25-0500 Body weight 75.3 kg Chula Plotts INSPECTOR AGRIC[employer] COMMODITIES.CNM Work Phone: [facility] 12-31-2022 10:25-0500 Diastolic blood pressure 64 mm[Hg] Chula Plotts INSPECTOR AGRIC[employer] COMMODITIES.CNM Work Phone: [facility] 12-31-2022 10:25-0500 Systolic blood pressure 108 mm[Hg] Chula Plotts INSPECTOR AGRIC[employer] COMMODITIES.CNM Work Phone: [facility] 12-03-2022 11:27-0500 Body weight 74.48 kg Margo Bland MD Work Phone: [facility] 12-03-2022 11:27-0500 Diastolic blood pressure 72 mm[Hg] Margo Bland MD Work Phone: [facility] 12-03-2022 11:27-0500 Systolic blood pressure 120 mm[Hg] Margo Bland MD Work Phone: [facility] 11-04-2022 10:29-0500 Body weight 70.76 kg Chula Lockett INSPECTOR AGRIC[employer] COMMODITIES.CNM Work Phone: [facility] 11-04-2022 10:29-0500 Diastolic blood pressure 60 mm[Hg] Chula Lockett INSPECTOR AGRIC[employer] COMMODITIES.CNM Work Phone: [facility] 11-04-2022 10:29-0500 Systolic blood pressure 104 mm[Hg] Chula Lockett INSPECTOR AGRIC[employer] COMMODITIES.CNM Work Phone: [facility] 11-04-2022 09:23-0500 Body height 170.2 cm Nikki Zheng MD Work Phone: [facility] 10-08-2022 11:30-0500 Body weight 69.67 kg Lino Kumar MD Work Phone: [facility] 10-08-2022 11:30-0500 Diastolic blood pressure 62 mm[Hg] Lino Kumar MD Work Phone: [facility] 10-08-2022 11:30-0500 Systolic blood pressure 104 mm[Hg] Lino Kumar MD Work Phone: [facility] 09-10-2022 11:31-0400 Body weight 67.68 kg Lino Kumar MD Work Phone: [facility] 09-10-2022 11:31-0400 Diastolic blood pressure 60 mm[Hg] Lino Kumar MD Work Phone: [facility] 09-10-2022 11:31-0400 Systolic blood pressure 106 mm[Hg] Lino Kumar MD Work Phone: [facility] 08-19-2022 17:00-0400 Diastolic blood pressure 73 mm[Hg] Rodríguez Jones Other Phone: [facility] 08-19-2022 17:00-0400 Heart rate 78 /min Rodríguez Jones Other Phone: [facility] 08-19-2022 17:00-0400 Respiratory rate 17 /min Rodríguez Jones Other Phone: [facility] 08-19-2022 17:00-0400 SaO2% (BldA) [Mass fraction] 100 % Rodríguez Jones Other Phone: [facility] 08-19-2022 17:00-0400 Systolic blood pressure 122 mm[Hg] Rodríguez Jones Other Phone: [facility] 08-19-2022 15:18-0400 Body height 170.1 cm Rodríguez Jones Other Phone: [facility] 08-19-2022 15:18-0400 Body temperature 97.7 [degF] Rodríguez Jones Other Phone: [facility] 08-19-2022 15:18-0400 Body weight 70.5 kg Rodríguez Jones Other Phone: [facility] 08-13-2022 10:15-0400 Body height 170.2 cm Tennille Jacinto MD Work Phone: [facility] 08-13-2022 10:15-0400 Body weight 68.49 kg Tennille Jacinto MD Work Phone: [facility] 08-13-2022 10:15-0400 Diastolic blood pressure 66 mm[Hg] Tennille Jacinto MD Work Phone: [facility] 08-13-2022 10:15-0400 Systolic blood pressure 100 mm[Hg] Tennille Jacinto MD Work Phone: [facility] 07-01-2022 15:18-0400 Body height 170.18 cm Pat Giraldo Work Phone: [facility] Work Phone: 07-01-2022 15:18-0400 Body mass index (BMI) [Ratio] 24.91 kg/m2 Pat Giraldo Work Phone: [facility] Work Phone: 07-01-2022 15:18-0400 Body surface area Derived from formula 1.83 m2 Pat Giraldo Work Phone: [facility] Work Phone: 07-01-2022 15:18-0400 Body weight 72.15 kg Pat Giraldo Work Phone: [facility] Work Phone: 07-01-2022 15:18-0400 Diastolic blood pressure 70 mm[Hg] Pat Giraldo Work Phone: [facility] Work Phone: 07-01-2022 15:18-0400 Heart rate 125 /min Pat Giraldo Work Phone: [facility] Work Phone: 07-01-2022 15:18-0400 SaO2% (BldA) [Mass fraction] 99 % Pat Giraldo Work Phone: [facility] Work Phone: 07-01-2022 15:18-0400 Systolic blood pressure 98 mm[Hg] Pat Giraldo Work Phone: [facility] Work Phone: 06-19-2022 11:25-0400 Body height 170.1 cm Rodríguez Jones Other Phone: [facility] 06-19-2022 11:25-0400 Body temperature 98.06 [degF] Rodríguez Jones Other Phone: [facility] 06-19-2022 11:25-0400 Diastolic blood pressure 80 mm[Hg] Rodríguez Jones Other Phone: [facility] 06-19-2022 11:25-0400 Heart rate 106 /min Rodríguez Jones Other Phone: [facility] 06-19-2022 11:25-0400 Respiratory rate 16 /min Rodríguez Jones Other Phone: [facility] 06-19-2022 11:25-0400 SaO2% (BldA) [Mass fraction] 100 % Rodríguez Jones Other Phone: [facility] 06-19-2022 11:25-0400 Systolic blood pressure 112 mm[Hg] Rodríguez Jones Other Phone: [facility] 01-08-2022 16:59-0500 Heart rate 118 /min Soni Granados DO Work Phone: [facility] Comment on above: recheck. pt states normal for her CLG 01-08-2022 16:56-0500 Body height 170.2 cm Soni Granados DO Work Phone: [facility] 01-08-2022 16:56-0500 Body mass index (BMI) [Ratio] 23.49 kg/m2 Soni Granados DO Work Phone: [facility] 01-08-2022 16:56-0500 Body temperature 98.71 [degF] Soni Granados DO Work Phone: [facility] 01-08-2022 16:56-0500 Body weight 68.04 kg Soni Granados DO Work Phone: [facility] 01-08-2022 16:56-0500 Diastolic blood pressure 83 mm[Hg] Soni Granados DO Work Phone: [facility] 01-08-2022 16:56-0500 Respiratory rate 16 /min Soni Granados DO Work Phone: [facility] 01-08-2022 16:56-0500 SaO2% (BldA) [Mass fraction] 99 % Soni Knowlescarlos DO Work Phone: [facility] 01-08-2022 16:56-0500 Systolic blood pressure 122 mm[Hg] Soni Granados DO Work Phone: [facility] 09-26-2021 18:47-0500 Diastolic blood pressure 63 mm[Hg] Rodríguez Jones Other Phone: [facility] 09-26-2021 18:47-0500 Heart rate 89 /min Rodríguez Jones Other Phone: [facility] 09-26-2021 18:47-0500 Respiratory rate 18 /min Rodríguez Jones Other Phone: [facility] 09-26-2021 18:47-0500 SaO2% (BldA) [Mass fraction] 97 % Rodríguez Jones Other Phone: [facility] 09-26-2021 18:47-0500 Systolic blood pressure 101 mm[Hg] Rodríguez Jones Other Phone: [facility] 09-26-2021 16:34-0500 Body height 170.1 cm Rodríguez Jones Other Phone: [facility] 09-26-2021 16:34-0500 Body temperature 98.06 [degF] Rodríguez Jones Other Phone: [facility] 09-26-2021 16:34-0500 Body weight 68.1 kg Rodríguez Jones Other Phone: [facility] 07-17-2021 11:00-0400 Body height 170.18 cm Pat Giraldo Work Phone: [facility] Work Phone: 07-17-2021 11:00-0400 Body mass index (BMI) [Ratio] 23.06 kg/m2 Pat Giraldo Work Phone: [facility] Work Phone: 07-17-2021 11:00-0400 Body surface area Derived from formula 1.78 m2 Pat Giraldo Work Phone: [facility] Work Phone: 07-17-2021 11:00-0400 Body temperature 98.2 [degF] Pat Giraldo Work Phone: [facility] Work Phone: 07-17-2021 11:00-0400 Body weight 66.79 kg Pat Giraldo Work Phone: [facility] Work Phone: 07-17-2021 11:00-0400 Diastolic blood pressure 66 mm[Hg] Pat Giraldo Work Phone: [facility] Work Phone: 07-17-2021 11:00-0400 Heart rate 98 /min Pat Giraldo Work Phone: [facility] Work Phone: 07-17-2021 11:00-0400 SaO2% (BldA) [Mass fraction] 99 % Pat Giraldo Work Phone: [facility] Work Phone: 07-17-2021 11:00-0400 Systolic blood pressure 104 mm[Hg] Pat Giraldo Work Phone: [facility] Work Phone: 06-24-2021 12:22-0400 Body height 170.18 cm Pat Giraldo Work Phone: [facility] Work Phone: 06-24-2021 12:22-0400 Body mass index (BMI) [Ratio] 22.77 kg/m2 Pat Giralod Work Phone: [facility] Work Phone: 06-24-2021 12:22-0400 Body surface area Derived from formula 1.77 m2 Pat Giraldo Work Phone: [facility] Work Phone: 06-24-2021 12:22-0400 Body temperature 97.5 [degF] Pat Giraldo Work Phone: [facility] Work Phone: 06-24-2021 12:22-0400 Body weight 65.94 kg Pat Giraldo Work Phone: [facility] Work Phone: 06-24-2021 12:22-0400 Diastolic blood pressure 70 mm[Hg] Pat Giraldo Work Phone: [facility] Work Phone: 06-24-2021 12:22-0400 Heart rate 108 /min Pat Giraldo Work Phone: [facility] Work Phone: 06-24-2021 12:22-0400 SaO2% (BldA) [Mass fraction] 98 % Pat Giraldo Work Phone: [facility] Work Phone: 06-24-2021 12:22-0400 Systolic blood pressure 100 mm[Hg] Pat Giraldo Work Phone: [facility] Work Phone: 05-27-2021 18:27-0400 Body height 170.1 cm Rodríguez Jones Other Phone: [facility] 05-27-2021 18:27-0400 Body temperature 98.06 [degF] Rodríguez Jones Other Phone[facility] [facility] 05-27-2021 18:27-0400 Diastolic blood pressure 67 mm[Hg] Rodríguez Jones Other Phone: [facility] 05-27-2021 18:27-0400 Heart rate 125 /min Rodríguez Jones Other Phone: [facility] 05-27-2021 18:27-0400 Respiratory rate 16 /min Rodríguez Jones Other Phone: [facility] 05-27-2021 18:27-0400 SaO2% (BldA) [Mass fraction] 98 % Rodríguez Jones Other Phone: [facility] 05-27-2021 18:27-0400 Systolic blood pressure 107 mm[Hg] Rodríguez Jones Other Phone: [facility] Encounters Encounter Date Encounter Type Care Provider Facility Start: 09-09-2025 End: 09-09-2025 [facility] Facility[facility] Start: 08-27-2025 End: 08-27-2025 Office outpatient visit 25 minutes 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 AGRICULTURAL COMMODITIES-RHINESTONE SETTER Work Phone: [facility] Comment on above: Right wrist pain (Pr imary Dx); Hemorrhoids, unspecified hemorrhoid type; BMI 27.0-27.9,adult Start: 08-27-2025 End: 08-27-2025 ambulatory CALLY [facility] Ambulatory Start: 08-12-2025 End: 08-12-2025 ambulatory [facility] Facility:[facility] Start: 07-29-2025 End: 07-29-2025 Patient encounter procedure Jenelle Lockwood MD Work Phone: Pediatric Cardiology Start: 07-29-2025 End: 07-29-2025 ambulatory Jenelle Lockwood MD Work Phone: Pediatric Cardiology Start: 07-11-2025 End: 07-11-2025 ambulatory Ophelia Rao RN [facility] General Maternal Medicine Start: 07-11-2025 End: 07-11-2025 Patient encounter procedure Ophelia Rao RN [facility] Maternal Medicine Comment on above: Care Plan (Car e Coordination) Start: 07-09-2025 End: 07-09-2025 Patient encounter procedure Whi Tech 2 Social Services Assistant [facility] Main R Maternal Medicine Comment on above: 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, antepartum, single or unspecified fetus (HCC) (Primary Dx) Family history of sp sudheer bifida; Supervision of high risk , antepartum (HCC) Start: 07-09-2025 End: 07-09-2025 ambulatory LAKSHMI CHANEL Facility:[facility] Start: 07-04-2025 End: 07-04-2025 Telephone encounter Isaac Acosta [facility] Work Phone: [facility] Comment on above: Question Start: 07-03-2025 End: 07-04-2025 ambulatory [facility] Provider Pediatric Genomics Start: 07-03-2025 End: 07-04-2025 Patient encounter procedure [facility] Provider [facility] Genomics Comment on above: Appointments questio ns Start: 06-27-2025 End: 06-27-2025 E-mail encounter from caregiver Ophelia Rao RN [facility] General Maternal Medicine Start: 06-27-2025 End: 06-27-2025 Patient encounter procedure Ophelia Rao RN [facility] General Maternal Medicine Comment on above: Directions Start: 06-27-2025 End: 06-27-2025 Telephone encounter Ophelia Rao RN [facility] Maternal Medicine Comment on above: Inspector [employer] - O ther ( Care) Start: 06-18-2025 End: 06-18-2025 Patient encounter procedure Maki Davis MD Work Phone: Maternal Medicine Comment on above: 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) Start: 06-18-2025 End: 06-18-2025 [facility] Facility[facility] Start: 06-18-2025 End: 06-18-2025 [facility] Start: 06-12-2025 End: 06-12-2025 [facility] Start: 06-12-2025 End: 06-12-2025 Patient encounter procedure Isaac Acosta [facility] Work Phone: Pediatric Genomics Comment on above: Abnormal genetic aparna t in (Primary Dx); Increased nuchal translucency space on ultrasound Start: 06-10-2025 End: 06-10-2025 Telephone encounter Isaac Acosta [employer] Work Phone: [facility] Comment on above: NIPT results: Positi ve Start: 06-06-2025 End: 06-06-2025 Patient encounter procedure Isaac cAosta [facility] Work Phone: GMINE FRAME GATE MORTISER OPERATOR [facility] Comment on above: Increased nuchal tra nslucency space on ultrasound (Primary Dx) Start: 06-06-2025 End: 06-06-2025 [facility] Facility[facility] Start: 05-31-2025 End: 05-31-2025 Telephone encounter Lino Kumar MD Work Phone: OB/Gynecology Start: 05-30-2025 End: 05-30-2025 [facility] Start: 05-30-2025 End: 05-30-2025 Patient encounter procedure Whi Tech 1 Social Services Assistant Mfm Wstr Mob Maternal Medicine Comment on above: Encounter for antena donte screening for malformation using ultrasound ([facility]) (Primary Dx); with uncertain dates, antepartum ([facility]); Increased nuchal translucency space on ultrasound; 13 weeks gestation of ([facility]) 13 weeks gestation o f ([facility]) (Primary Dx); Encounter for supervision of normal in multigravida in first trimester ([facility]); Nuchal fold thickening on ultrasound Start: 05-30-2025 End: 05-30-2025 [facility] Start: 04-23-2025 End: 06-23-2025 Follow-up encounter Chula Lockett APRN.CNM Work Phone: OB/Gynecology Start: 04-19-2025 End: 04-19-2025 Telephone encounter Nurse Social Services Assistant Santo Amaya Work Phone: Obstetrics/Gynecology Comment on above: PRAF Start: 04-18-2025 End: 04-18-2025 Patient encounter procedure Chula Lockett APRN.CNM Work Phone: OB/Gynecology Comment on above: with uncer tain dates, antepartum (HCC) (Primary Dx); 7 weeks gestation of ([facility]); Screening for cervical cancer; Screening for human papillomavirus (HPV); Nausea and vomiting during ([facility]); History of depression; Encounter for supervision of normal in multigravida in first trimester ([facility]); Engages in nicotine containing substance vaping; Anxiety Start: 04-18-2025 End: 04-18-2025 [facility] Start: 04-17-2025 End: 04-17-2025 E-mail encounter from caregiver Chula Lockett APRN.CNM Work Phone: OB/Gynecology Start: 04-17-2025 End: 04-17-2025 Patient encounter procedure Chula Lockett APRN.CNM Work Phone: OB/Gynecology Comment on above: New OB appointment Start: 04-10-2025 End: 04-10-2025 Emergency department patient visit CALLY HEDRICK [facility] Emergency Medicine Comment on above: Right otitis media, unspecified otitis media type (Primary Dx); Acute otitis externa of right ear, unspecified type Start: 04-09-2025 End: 04-09-2025 E-mail encounter from caregiver Zoë Chu MD Work Phone: OB/Gynecology Start: 04-09-2025 End: 04-09-2025 Patient encounter procedure Erica L Briana INSPECTOR AGRICULTURAL COMMODITIES-RHINESTONE SETTER Work Phone: [facility] Comment on above: Nonspecific syndrome suggestive of viral illness (Primary Dx); Pharyngitis, unspecified etiology Start: 04-09-2025 End: 04-09-2025 ambulatory Zoë Cuh MD Work Phone: OB/Gynecology Comment on above: Healthy Gu olivier Start: 07-24-2024 End: 07-24-2024 Patient encounter procedure Julio Cesar Bunn Demetri INSPECTOR AGRICULTURAL COMMODITIES-RHINESTONE SETTER Work Phone: [facility] Comment on above: Acute upper respirat ory infection (Primary Dx) Start: 07-24-2024 End: 07-24-2024 ambulatory CALLY HEDRICK [facility] Start: 07-17-2024 End: 07-17-2024 Office outpatient visit 25 minutes 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 AGRICULTURAL COMMODITIES-RHINESTONE SETTER Work Phone: [facility] Comment on above: Closed fracture of n kulwant bone with routine healing, subsequent encounter (Primary Dx); Dysuria; BMI 21.0-21.9, adult Start: 07-09-2024 End: 07-09-2024 Emergency department patient visit CALLY HEDRICK [facility] Emergency Medicine Comment on above: Closed head injury, initial encounter (Primary Dx); Closed fracture of nasal bone, initial encounter Start: 06-24-2024 Refill Lino Cohen Work Phone: OB/Gynecology Comment on above: Refill Request Start: 06-11-2024 End: 06-11-2024 Patient encounter procedure Pina Sheppard INSPECTOR AGRICULTURAL COMMODITIES.RHINESTONE SETTER Work Phone: OB/Gynecology Comment on above: Encounter for gyneco logical examination (general) (routine) without abnormal findings (Primary Dx); Unprotected sexual intercourse; Vaginal discharge Start: 06-11-2024 End: 06-11-2024 Patient encounter status Pina Sheppard INSPECTOR AGRICULTURAL COMMODITIES.RHINESTONE SETTER Work Phone: [facility] Start: 01-13-2024 End: 01-13-2024 Emergency department patient visit 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 AGRICULTURAL COMMODITIES-RHINESTONE SETTER Work Phone: [facility] Emergency Medicine Comment on above: Vomiting and diarrhe a (Primary Dx); Dehydration Start: 11-23-2023 End: 11-24-2023 ambulatory CALLY HEDRICK Facility:[id number] Start: 11-23-2023 End: 11-23-2023 Office outpatient visit 15 minutes 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 AGRICULTURAL COMMODITIES-RHINESTONE SETTER Work Phone: [facility] Comment on above: Urticaria (Primary D x) Start: 10-08-2023 End: 10-08-2023 Patient encounter procedure Eulogio Chester PA-C Work Phone: [facility] Comment on above: Upper respiratory tr act infection, unspecified type (Primary Dx) Start: 09-21-2023 End: 09-21-2023 Office outpatient visit 15 minutes 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 AGRICULTURAL COMMODITIES-RHINESTONE SETTER Work Phone: [facility] Comment on above: Moderate anxiety (Pr imary Dx) Start: 08-31-2023 End: 09-01-2023 ambulatory CALLY Ludivina [facility] Start: 06-10-2023 End: 06-10-2023 Emergency department patient visit Patti Ruiz [facility] Start: 03-29-2023 End: 03-29-2023 [id number] Start: 03-24-2023 End: 03-25-2023 ambulatory Katelynn Zazueta NP Facility:[facility] Start: 03-21-2023 ambulatory Margo ramirez MD Work Phone: OB/Gynecology Comment on above: Ob Delivery Note Start: 03-21-2023 End: 03-22-2023 Evaluation and management of inpatient [address] Facility:[facility] Start: 03-21-2023 End: 03-22-2023 Evaluation and management of inpatient [facility] [place] Start: 03-18-2023 End: 03-18-[address] Facility:[facility] Start: 03-18-2023 End: 03-18-2023 ambulatory [facility] Work Phone: Start: 03-18-2023 End: 03-18-2023 Patient encounter procedure Tennille Jacinto MD Work Phone: OB/Gynecology Comment on above: Anemia during pregna ncy in third trimester (Primary Dx); Positive GBS test; 39 weeks gestation of Start: 03-16-2023 End: 03-16-2023 ambulatory HILDAGriselda Facility:[facility] Start: 03-16-2023 End: 03-16-2023 ambulatory [facility] Work Phone: Start: 03-16-2023 End: 03-16-2023 Patient encounter procedure [facility] Start: 03-14-2023 End: 03-14-2023 Patient encounter procedure Vilma Painter AYESHA Work Phone: OB/Gynecology Comment on above: 38 weeks gestation o f (Primary Dx) Start: 03-14-2023 End: 03-14-2023 ambulatory [facility] Facility:[facility] Start: 03-14-2023 End: 03-14-2023 ambulatory [facility] Work Phone: Start: 03-14-2023 End: 03-14-2023 Patient encounter procedure [facility] Start: 03-11-2023 End: 03-11-2023 [facility] Facility:[facility] Start: 03-11-2023 End: 03-11-2023 ambulatory [facility] Work Phone: Start: 03-11-2023 End: 03-11-2023 Patient encounter procedure [facility] Start: 03-02-2023 End: 03-02-2023 Patient encounter procedure Tennille Jacinto MD Work Phone: OB/Gynecology Comment on above: Anemia during pregna ncy in third trimester (Primary Dx); 36 weeks gestation of Start: 03-02-2023 Telephone encounter Tennille Jacinto MD Work Phone: OB/Gynecology Comment on above: blood management Start: 02-22-2023 ambulatory Angela Mariny RN [facility] Comment on above: Blood Management Start: 02-22-2023 End: 02-22-2023 Patient encounter procedure Nikki Zheng MD Work Phone: Maternal Medicine Comment on above: Uterine size-date di screpancy, third trimester (Primary Dx); 35 weeks gestation of Anemia during pregna ncy in third trimester (Primary Dx); 35 weeks gestation of ; Uterine size-date discrepancy, third trimester; Vaginal irritation Start: 02-16-2023 Telephone encounter Chula portillo APRN.CNM Work Phone: OB/Gynecology Comment on above: Results Start: 02-11-2023 End: 02-11-2023 Patient encounter procedure Tennille Jacinto MD Work Phone: OB/Gynecology Comment on above: Anemia during pregna ncy in third trimester (Primary Dx); 34 weeks gestation of Start: 01-28-2023 End: 01-28-2023 Patient encounter procedure Nikki Zheng MD Work Phone: Maternal Medicine Comment on above: Suspected placental problem not found (Primary Dx); 32 weeks gestation of ; Anemia during in third trimester 32 weeks gestation o f (Primary Dx); Mood changes; Anxiety neurosis; History of panic attacks; Low-lying placenta Start: 01-26-2023 Telephone encounter Chula portillo APRN.CNM Work Phone: OB/Gynecology Comment on above: Breast Pump Start: 01-14-2023 End: 01-14-2023 Patient encounter procedure Lino Kumar MD Work Phone: OB/Gynecology Comment on above: 30 weeks gestation o f (Primary Dx) Start: 12-31-2022 End: 12-31-2022 Patient encounter procedure Chula Lockett APRN.CNM Work Phone: OB/Gynecology Comment on above: 28 weeks gestation o f (Primary Dx); Need for vaccination; Low lying placenta nos or without hemorrhage, second trimester; Vapes nicotine containing substance Start: 12-03-2022 End: 01-20-2023 Patient encounter procedure Margo Bland MD Work Phone: OB/Gynecology Comment on above: 24 weeks gestation o f (Primary Dx); Encounter for supervision of normal first in second trimester; Low lying placenta nos or without hemorrhage, second trimester; Heartburn during , antepartum, second trimester Start: 11-04-2022 End: 11-04-2022 Patient encounter procedure Chula Lockett INSPECTOR AGRICULTURAL COMMODITIES.CNM Work Phone: OB/Gynecology Comment on above: 20 weeks gestation o f (Primary Dx) Encounter for anatomic survey (Primary Dx); 20 weeks gestation of Start: 10-08-2022 End: 10-08-2022 Patient encounter procedure Lino Kumar MD Work Phone: OB/Gynecology Comment on above: Encounter for superv ision of normal first in second trimester (Primary Dx); 16 weeks gestation of Start: 09-13-2022 Telephone encounter Nikki byrne MD Work Phone: Maternal Medicine Comment on above: First Seq Results Start: 09-10-2022 End: 09-10-2022 Patient encounter procedure Nikki Zheng MD Work Phone: Maternal Medicine Comment on above: Encounter for (NT) n uchal translucency scan (Primary Dx); 12 weeks gestation of Encounter for antena donte screening for nuchal translucency (Primary Dx); Encounter for supervision of normal first in first trimester; 12 weeks gestation of ; Need for influenza vaccination Start: 08-19-2022 End: 08-19-2022 Emergency department patient visit Shivani Dixon [facility] Emergency 05 Start: 08-19-2022 Telephone encounter Chula portillo INSPECTOR AGRICULTURAL COMMODITIES.CNM Work Phone: OB/Gynecology Comment on above: Nausea & Vomiting Start: 08-13-2022 End: 08-13-2022 Patient encounter procedure Tennille Jacinto MD Work Phone: OB/Gynecology Comment on above: Encounter for superv ision of normal first in first trimester (Primary Dx); Maternal tobacco use in first trimester; Encounter for screening for malignant neoplasm of cervix Start: 08-12-2022 End: 08-12-2022 Nursing evaluation of patient and report Nurse Pnob [facility] Work Phone: OB/Gynecology Comment on above: Supervision of marlene aiken first , antepartum (Primary Dx); Nausea and vomiting during ; History of depression; Engages in nicotine containing substance vaping Start: 08-08-2022 AUDIT Pat Garza ster Work Phone: [facility] 205 DO Work Phone: Start: 07-27-2022 Telephone encounter Tennille Jacinto MD Work Phone: OB/Gynecology Comment on above: Future Appointment Start: 07-26-2022 AUDIT Pat Garza ster Work Phone: [facility] 205 DO Work Phone: Start: 07-14-2022 Chart Update Pat Garza ster Work Phone: [facility] Work Phone: Start: 07-13-2022 ambulatory Ms. Pat Sullivan carlos alberto Giraldo Facility:[id number] Start: 06-19-2022 End: 06-19-2022 Emergency department patient visit Patti Ruiz [facility] 02 Start: 01-08-2022 End: 01-12-[address] [facility] Start: 01-08-2022 End: 01-08-2022 Office outpatient new 30 minutes Soni Granados DO Work Phone: [facility] Comment on above: Contusion of right h and, initial encounter (Primary Dx) Start: 09-26-2021 End: 09-26-2021 Emergency department patient visit Shivani Jose [facility] Emergency 16 Start: 07-17-2021 Office outpatient vi sit 15 minutes Pat Giraldo Work Phone: [facility] Work Phone: Start: 06-24-2021 Office outpatient vi sit 25 minutes Pat Giraldo Work Phone: [facility] Work Phone: Start: 05-27-2021 End: 05-27-2021 Emergency department patient visit Soni Ferreira [facility] Start: 09-30-2020 Patient encounter procedure Wendy [place] [facility] Work Phone: Start: 05-26-2020 Patient encounter procedure Wendy [place] [facility] Work Phone: Start: 04-02-2020 Patient encounter procedure Wendy [place] [facility] Work Phone: Start: 03-31-2020 Patient encounter procedure Wendy [place] [facility] Work Phone: Start: 01-22-2020 Patient encounter procedure Wendy Ruvalc[place] -[facility] Work Phone: Start: 01-17-2020 Patient encounter procedure Wendy [place] [facility] Work Phone: Start: 12-17-2019 Patient encounter procedure Wendy Ruvalcaba -[facility] Work Phone: Start: 02-12-2019 Patient encounter procedure Pat Bookerpster Facility:[facility] Start: 02-12-2019 End: 02-13-2019 Patient encounter procedure Pat Giraldo Facility:[facility] Start: 09-25-2018 End: 09-26-2018 Patient encounter procedure Eulogio Steward Julio Cesarattila Facility:[facility] End: 12-17-2019 ECG normal Pat Giraldo Work Phone: [facility] Work Phone: Procedures Date Procedure Procedure Detail Performing Clinician Start: 07-09-2025 Us preg uterus after 1st trimest 11/14 gestation Maki Davis MD Work Phone: Start: 05-30-2025 Antibody screen LAKSHMI CHANEL Comment on above: Order Comment: Speci men Type: BLOOD SPECIMENOrdering Facility: [facility] Address: [address] [place] [address] Performed By: #### T SPN ####CC MAIN BLOOD BANKCLIA [id number] [facility] [id number] [address] [place] Start: 05-30-2025 Us preg uterus after 1st trimest 11/14 gestation Chula Dicksonjimmie INSPECTOR AGRICULTURAL COMMODITIES.CNM Work Phone: Start: 04-18-2025 Us uterus l imited fetuses Chula Lockett INSPECTOR AGRICULTURAL COMMODITIES.CNM Work Phone: Start: 04-18-2025 Microscopic observat ion [Identifier] in Cervix by Cyto stain 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 AGRICULTURAL COMMODITIES-[facility] Work Phone: Start: 04-09-2025 Iaadiadoo streptococ cus group a Erica Warren INSPECTOR AGRICULTURAL COMMODITIES-[facility] Work Phone: Start: 07-24-2024 POCT SARS-COV-2/FLU/ RSV PCR SYMPTOMATIC Julio Cesar Bunn Demetri INSPECTOR AGRICULTURAL COMMODITIES-[facility] Work Phone: Start: 07-17-2024 Urnls dip stick/tabl et rgnt auto w/o microscopy 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 AGRICULTURAL COMMODITIES-[facility] Work Phone: Start: 07-09-2024 3d rendering w/interp&postproc diff work station Shivani Garcia INSPECTOR AGRIC[employer]URAL COMMODITIES-[facility] Work Phone: Start: 07-09-2024 Ct head/brain w/o co ntrast material Shivani Garcia INSPECTOR AGRICULT[employer] COMMODITIES-[facility] Work Phone: Start: 01-13-2024 Influenza virus A an d B and SARS-CoV-2 (COVID-19) identified in Respiratory specimen by KAYLEE with probe detection Shivani Dixon PA-C Work Phone: Start: 01-13-2024 Urinalysis complete W Reflex Culture panel - Urine Shivani Dixon PA-C Work Phone: Start: 01-13-2024 Urine test visual color cmprsn meths Shivani Dixon PA-C Work Phone: Start: 01-13-2024 Urnls dip stick/tabl et reagent auto microscopy Shivani Dixon PA-C Work Phone: Start: 01-13-2024 Basic metabolic pane l calcium total Shivani Dixon PA-C Work Phone: Start: 08-31-2023 CBC W Auto Different ial panel - Blood CALLY HEDRICK Start: 08-31-2023 Comprehensive metabo lic 2000 panel - Serum or Plasma CALLY HEDRICK Start: 08-31-2023 Cyanocobalamin vitam in b-12 CALLY HEDRICK Start: 08-31-2023 Ferritin [Mass/volum e] in Serum or Plasma CALLY HEDRICK Start: 08-31-2023 FOLATE CALLY ADINA E Start: 08-31-2023 IRON AND TIBC CALLY DICKSONO RE Start: 08-31-2023 Thyrotropin [Units/v olume] in Serum or Plasma CALLY HEDRICK Start: 08-31-2023 THYROXINE, FREE CALLY M OORE Start: 08-31-2023 TRIIODOTHYRONINE, FREE CALLY HEDRICK Start: 08-31-2023 VITAMIN D 25-HYDROXY,TOTAL CALLY HEDRICK Start: 03-18-2023 URINE OB DIP B/O Tennille Jacinto MD Work Phone: Start: 03-14-2023 URINE OB DIP B/O Devon Painter APRN.CNM Work Phone: Start: 02-22-2023 Iaadiadoo trichomona s vaginalis Lino Kumar MD Work Phone: Start: 02-22-2023 Us preg uterus after 1st trimest 11/14 gestation Lino Kumar MD Work Phone: Start: 02-22-2023 URINE OB DIP B/O Lino Kumar MD Work Phone: Start: 02-11-2023 URINE OB DIP B/O Tennille Ursula Jacinto MD Work Phone: Start: 01-28-2023 Us preg uterus after 1st trimest 1/ gestation Chula Lockett INSPECTOR AGRICULTURAL COMMODITIES.CNM Work Phone: Start: 01-14-2023 URINE OB DIP B/O Lino Kumar MD Work Phone: Start: 12-31-2022 URINE OB DIP B/O Shayne Lockett INSPECTOR AGRICULTURAL COMMODITIES.CNM Work Phone: Start: 12-03-2022 URINE OB DIP B/O Nadine tadeo MD Work Phone: Start: 11-04-2022 URINE OB DIP B/O Shayne Lockett INSPECTOR AGRICULTURAL COMMODITIES.CNM Work Phone: Start: 11-04-2022 Us preg uterus after 1st trimest / gestation Tennille Jacinto MD Work Phone: Start: 10-08-2022 URINE OB DIP B/O Lino Kumar MD Work Phone: Start: 09-10-2022 INFLUENZA VACCINE QUADRIVALENT 6 MO - 64 YRS IM Lino Kumar MD Work Phone: Start: 09-10-2022 URINE OB DIP B/O Lino Kumar MD Work Phone: Start: 09-10-2022 Us nuchal translucency 1st gestation Tennille aJcinto MD Work Phone: Start: 08-13-2022 Microscopic observat ion [Identifier] in Cervix by Cyto stain 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 AGRICULTURAL COMMODITIES-[employer] Work Phone: Start: 01-08-2022 Radex hand minimum 3 views Soni Granados DO Work Phone: Start: 09-26-2021 End: 09-26-2021 EKG impression Shivani Jose Start: 09-30-2020 Coronavirus 2019 RNA by PCR, Symptomatic Wendy [place] Start: 04-02-2020 Echocardiography Bhavya ly [place] NEGATED: Highlighted row has not occurred! Denies History Of Prior Surgery Pat Giraldo Work Phone: Plan of Treatment Date Care Activity Detail Author Start: 2076 RSV High Risk: (Elde rly (60+) or Population) (1 - 1-dose 75+ series) RSV High Risk: (Elderly (60+) or Population) (1 - 1-dose 75+ series) [facility] Start: 2051 Zoster Vaccines (1 of 2) Zoster Vacc tenzin (1 of 2) [facility] Start: 12-31-2032 DTaP/Tdap/Td Vaccine s (7 - Td or Tdap) DTaP/Tdap/Td Vaccines (7 - Td or Tdap) [facility] [facility] Start: 12-31-2032 Urine microalbumin profile [facility] Start: 04-18-2028 Screening for malign ant neoplasm of cervix [facility] Start: 04-18-2026 GC (Gonorrhea) Scree doris () GC (Gonorrhea) Screening () [facility] Start: 04-18-2026 Screening for Chlamy susie trachomatis Chlamydia Screening () [facility] Start: 10-06-2025 RSV Vaccine (1 - Ris k 1-dose series) RSV Vaccine (1 - Risk 1-dose series) [facility] Start: 08-13-2025 PAP TESTING PAP TESTING [facility] Start: 08-13-2025 Screening for malign ant neoplasm of cervix [facility] Start: 08-12-2025 End: 08-12-2025 Patient encounter procedure Maternal Medicine Comment on above: growth ob Start: 07-29-2025 End: 07-29-2025 ambulatory 07/29/2025 11:30 AM EDT Procedure Pediatric Cardiology [address] [place] [address] Jenelle Lockwood MD [address] [place] [address] single Pediatric Cardiology Comment on above: single Start: 07-29-2025 End: 07-29-2025 Patient encounter procedure 07/29/2025 11:30 AM EDT Office Visit Pediatric Cardiology [address] [place] [address] single Pediatric Cardiology Comment on above: single Start: 07-16-2025 End: 07-16-2025 Patient encounter procedure Maternal Medicine Comment on above: ANATOMY ANATMOY/OB ANATOMY-DR BURGOS TO READ Start: 07-15-2025 COVID-19 Vaccine ( season) COVID-19 Vaccine ( season) [facility] Start: 07-15-2025 Influenza vaccination [facility] Start: 07-09-2025 End: 07-09-2025 Patient encounter procedure Maternal Medicine Comment on above: follow up est mfm Start: 06-25-2025 End: 09-23-2025 CHROMOSOME ANALYSIS, R/O MOSAICISM CHROMOSOME ANALYSIS, R/O MOSAICISM Lab Routine Abnormal genetic test in Expected: 06/25/2025, Expires: 09/23/2025 [facility] Work Phone: Comment on above: Expected: 06/25/2025 , Expires: 09/23/2025 Start: 06-18-2025 End: 06-18-2025 Patient encounter procedure Maternal Medicine Comment on above: Nuchal fold thickeni ng on ultrasound US/MFM/OB Start: 06-14-2025 Influenza vaccination Influenza Vacc ine (#1) [facility] Start: 06-12-2025 End: 06-12-2025 Patient encounter procedure OB/Gynecology Comment on above: Annual Genetic Counseling, Follow Up, per Isaac Start: 06-11-2025 GC (Gonorrhea) Scree doris () GC (Gonorrhea) Screening (18-) [facility] Start: 06-11-2025 Screening for Chlamy susie trachomatis Chlamydia Screening () [facility] Start: 06-06-2025 End: 06-06-2025 Patient encounter procedure 06/06/2025 2:00 PM EDT Office Visit [employer]INE [employer] MORTISER OPERATOR [facility] [address] [place] [address] Isaac Acosta, [facility] [address] [address] Nuchal fold thickening on ultrasound [O28.3] [employer]INE FR[employer] GATE MORTISER OPERATOR C MD Comment on above: Nuchal fold thickeni ng on ultrasound [O28.3] Start: 05-31-2025 End: 05-31-2026 OBSTETRIC ULTRASOUND WHI OBSTETRIC ULTRASOUND WHI Anc Imaging Routine Nuchal fold thickening on ultrasound Expected: 05/31/2025, Expires: 05/31/2026 [facility] Work Phone: Comment on above: Expected: 05/31/2025 , Expires: 05/31/2026 Start: 05-30-2025 End: 08-29-2025 Chromosome 21 trisomy [Presence] in Blood or Tissue by Cytogenetics [facility] Work Phone: Comment on above: Expected: 05/30/2025 , Expires: 08/29/2025 Start: 05-16-2025 End: 05-16-2025 Patient encounter procedure Maternal Medicine Comment on above: Nuchal OB Start: 04-18-2025 End: 07-18-2025 ANEMIA REFLEX PANEL ANEMIA REFLEX PANEL Lab Routine with uncertain dates, antepartum (HCC) Expected: 04/18/2025, Expires: 07/18/2025 [facility] Work Phone: Comment on above: Expected: 04/18/2025 , Expires: 07/18/2025 Start: 04-18-2025 End: 07-18-2025 Hemoglobin A1c in Blood HEMOGLOBIN A1C Lab Routine with uncertain dates, antepartum (HCC) Expected: 04/18/2025, Expires: 07/18/2025 [facility] Comment on above: Expected: 04/18/2025 , Expires: 07/18/2025 Start: 04-18-2025 End: 07-18-2025 Hepatitis B virus surface Ag [Presence] in Serum HEPATITIS B SURFACE ANTIGEN Lab Routine with uncertain dates, antepartum (HCC) Expected: 04/18/2025, Expires: 07/18/2025 [facility] Comment on above: Expected: 04/18/2025 , Expires: 07/18/2025 Start: 04-18-2025 End: 07-18-2025 Hepatitis C virus Ab [Presence] in Serum HEPATITIS C ANTIBODY IA WITH CONFIRMATION Lab Routine with uncertain dates, antepartum (HCC) Expected: 04/18/2025, Expires: 07/18/2025 [facility] Comment on above: Expected: 04/18/2025 , Expires: 07/18/2025 Start: 04-18-2025 End: 07-18-2025 HIV 1+2 Ab [Presence] in Serum or Plasma by Immunoassay HIV 1/2 COMBO WITH REFLEX TO DIFFERENTIATION Lab Routine with uncertain dates, antepartum (HCC) Expected: 04/18/2025, Expires: 07/18/2025 [facility] Comment on above: Expected: 04/18/2025 , Expires: 07/18/2025 Start: 04-18-2025 End: 04-18-2026 OBSTETRIC ULTRASOUND WHI OBSTETRIC ULTRASOUND WHI Anc Imaging Routine with uncertain dates, antepartum (HCC) Expected: 04/18/2025, Expires: 04/18/2026 [facility] Comment on above: Expected: 04/18/2025 , Expires: 04/18/2026 Start: 04-18-2025 End: 07-18-2025 RUBELLA IGG ANTIBODY RUBELLA IGG ANTIBODY Lab Routine with uncertain dates, antepartum (HCC) Expected: 04/18/2025, Expires: 07/18/2025 [facility] Comment on above: Expected: 04/18/2025 , Expires: 07/18/2025 Start: 04-18-2025 End: 07-18-2025 SYPHILIS TREPONEMAL W/REFLEX SYPHILIS TREPONEMAL W/REFLEX Lab Routine with uncertain dates, antepartum (HCC) Expected: 04/18/2025, Expires: 07/18/2025 [facility] Comment on above: Expected: 04/18/2025 , Expires: 07/18/2025 Start: 04-18-2025 End: 07-18-2025 TYPE + SCREEN TYPE + SCREEN Blood Bank Routine with uncertain dates, antepartum (HCC) Expected: 04/18/2025, Expires: 07/18/2025 [facility] Comment on above: Expected: 04/18/2025 , Expires: 07/18/2025 Start: 04-18-2025 End: 04-18-2025 Patient encounter procedure 04/18/2025 1:00 PM EDT Initial Office Visit OB/Gynecology [address] [place] [address] Chula Lockett APRN.CN [address] [place] [address] LMP 02/24 OB/Gynecology Comment on above: LMP 02/24 Start: 07-15-2024 COVID-19 Vaccine ( season) COVID-19 Vaccine ( season) [facility] Start: 07-15-2024 COVID-19 Vaccine () COVID-19 Vaccine () [facility] Start: 07-15-2024 Influenza vaccination Influenza Vacc ine (#1) [facility] Start: 06-11-2024 End: 09-10-2024 Choriogonadotropin.beta subunit [Units/volume] in Serum or Plasma [facility] Work Phone: Comment on above: Expected: 06/11/2024 , Expires: 09/10/2024 Start: 12-27-2023 End: 12-27-2023 Patient encounter procedure 12/27/2023 11:40 AM EST Office Visit [facility] [address] [place] [address] Cally Hedrick, INSPECTOR [employer]ODITIES-[employer]INESTONE SETTER [address] [facility] [address] [place] [address] [facility] Start: 11-23-2023 End: 11-23-2024 C reactive protein [Mass/volume] in Serum or Plasma C-reactive protein Lab Routine Urticaria Expected: 11/23/2023 (Approximate), Expires: 11/23/2024 [facility] Work Phone: Comment on above: Expected: 11/23/2023 (Approximate), Expires: 11/23/2024 Start: 11-23-2023 End: 11-23-2024 CBC W Auto Differential panel - Blood CBC and Auto Differential Lab Routine Urticaria Expected: 11/23/2023 (Approximate), Expires: 11/23/2024 [facility] Service Area Work Phone: Comment on above: Expected: 11/23/2023 (Approximate), Expires: 11/23/2024 Start: 11-23-2023 End: 11-23-2024 Erythrocyte sedimentation rate Sedimentation Rate Lab Routine Urticaria Expected: 11/23/2023 (Approximate), Expires: 11/23/2024 [facility] Work Phone: Comment on above: Expected: 11/23/2023 (Approximate), Expires: 11/23/2024 Start: 11-23-2023 End: 11-23-2024 Nuclear Ab [Presence] in Serum by Hep2 substrate CHEL with Reflex to ИРИНА Lab Routine Urticaria Expected: 11/23/2023 (Approximate), Expires: 11/23/2024 [facility] Work Phone: Comment on above: Expected: 11/23/2023 (Approximate), Expires: 11/23/2024 Start: 08-13-2023 CHLAMYDIA SCREENING (18-24) CHLAMYDIA SCREENING (18-24) [facility] Start: 08-13-2023 GC (GONORRHEA) SCREE DORIS (18-24) GC (GONORRHEA) SCREENING (18-24) [facility] Start: 08-13-2023 Screening for Chlamy susie trachomatis Chlamydia Screening (18-24) [facility] Start: 08-09-2023 Tetanus vaccination Tetanus: Every 1 0yrs [facility] Start: 07-15-2023 Covid-19 Vaccine ( season) Covid-19 Vaccine ( season) [facility] Start: 07-15-2023 Influenza vaccination Influenza Vacc ine (#1) [facility] Start: 03-22-2023 Patient discharge [facility] Start: 03-21-2023 Administration of medication [facility] Start: 03-21-2023 Application of ice collar, cap or bag [facility] Start: 03-21-2023 Catheterization of vein [facility] Start: 03-21-2023 Introduction of urin aidan catheter [facility] Start: 03-21-2023 Measuring intake and output [facility] Start: 03-21-2023 Notification of physician [facility] Start: 03-21-2023 Procedure discontinued [facility] Start: 03-21-2023 Provision of activit y privileges [facility] Start: 03-21-2023 Vital signs measurements [facility] Start: 03-21-2023 [facility] Start: 03-21-2023 Admission procedure [facility] Start: 03-16-2023 Iv infusion therapy/prophylaxis /dx 1st to 1 hr THER/PROPH/DIAG IV INF NCIT [facility] Start: 03-14-2023 Iv infusion therapy/prophylaxis /dx 1st to 1 hr THER/PROPH/DIAG IV INF [facility] Start: 03-11-2023 Iv infusion therapy/prophylaxis /dx 1st to 1 hr THER/PROPH/DIAG IV INF [facility] Start: 01-28-2023 End: 03-30-2023 CBC panel - Blood by Automated count CBC Lab Routine 32 weeks gestation of Expected: 01/28/2023, Expires: 03/30/2023 [facility] Work Phone: Comment on above: Expected: 01/28/2023 , Expires: 03/30/2023 Start: 01-03-2023 End: 03-05-2023 CBC W Auto Differential panel - Blood CBC + DIFF Lab Routine 24 weeks gestation of Encounter for supervision of normal first in second trimester Expected: 01/03/2023 (Approximate), Expires: 03/05/2023 [facility] Work Phone: Comment on above: Expected: 01/03/2023 (Approximate), Expires: 03/05/2023 Start: 01-03-2023 End: 03-05-2023 GEST GLUC SCREEN, 1-HR, 50 GM, NON-FASTING GEST GLUC SCREEN, 1-HR, 50 GM, NON-FASTING Lab Routine 24 weeks gestation of Encounter for supervision of normal first in second trimester Expected: 01/03/2023 (Approximate), Expires: 03/05/2023 [facility] Work Phone: Comment on above: Expected: 01/03/2023 (Approximate), Expires: 03/05/2023 Start: 01-03-2023 End: 03-05-2023 SYPHILIS TOTAL W/REFLEX SYPHILIS TOTAL W/REFLEX Lab Routine 24 weeks gestation of Encounter for supervision of normal first in second trimester Expected: 01/03/2023 (Approximate), Expires: 03/05/2023 [facility] Work Phone: Comment on above: Expected: 01/03/2023 (Approximate), Expires: 03/05/2023 Start: 12-31-2022 End: 12-31-2023 OBSTETRIC ULTRASOUND WHI OBSTETRIC ULTRASOUND WHI Anc Imaging Routine 28 weeks gestation of Expected: 12/31/2022, Expires: 12/31/2023 [facility] Work Phone: Comment on above: Expected: 12/31/2022 , Expires: 12/31/2023 Start: 11-14-2022 DEPRESSION ASSESSMENT DEPRESSION ASS ESSMENT [facility] Start: 09-24-2022 End: 11-19-2022 SEQUENTIAL SCRN SCND TRIMESTER SEQUENTIAL SCRN SCND TRIMESTER Lab Routine Encounter for screening for nuchal translucency Expected: 09/24/2022 (Approximate), Expires: 11/19/2022 [facility] Work Phone: Comment on above: Expected: 09/24/2022 (Approximate), Expires: 11/19/2022 Start: 09-10-2022 End: 11-10-2022 SEQUENTIAL SCRN FRST TRIMESTER [facility] Work Phone: Comment on above: Expected: 09/10/2022 , Expires: 11/10/2022 Start: 08-13-2022 End: 10-13-2022 CBC panel - Blood by Automated count CBC Lab Routine Encounter for supervision of normal first in first trimester Maternal tobacco use in first trimester Expected: 08/13/2022, Expires: 10/13/2022 [facility] Work Phone: Comment on above: Expected: 08/13/2022 , Expires: 10/13/2022 Start: 08-13-2022 End: 10-13-2022 Hepatitis B virus surface Ab [Presence] in Serum by Immunoassay HEP B SURF AG SCRN Lab Routine Encounter for supervision of normal first in first trimester Maternal tobacco use in first trimester Expected: 08/13/2022, Expires: 10/13/2022 [facility] Work Phone: Comment on above: Expected: 08/13/2022 , Expires: 10/13/2022 Start: 08-13-2022 End: 10-13-2022 Hepatitis C virus Ab [Presence] in Serum HEP C AB IA W/CONF SCRN Lab Routine Encounter for supervision of normal first in first trimester Maternal tobacco use in first trimester Expected: 08/13/2022, Expires: 10/13/2022 [facility] Work Phone: Comment on above: Expected: 08/13/2022 , Expires: 10/13/2022 Start: 08-13-2022 End: 10-13-2022 HIV 1+2 Ab [Presence] in Serum or Plasma by Immunoassay HIV 1 2 COMBO(AG/AB),WITH REFLEX TO DIFFERENTIATION Lab Routine Encounter for supervision of normal first in first trimester Maternal tobacco use in first trimester Expected: 08/13/2022, Expires: 10/13/2022 [facility] Work Phone: Comment on above: Expected: 08/13/2022 , Expires: 10/13/2022 Start: 08-13-2022 End: 10-13-2022 RUBELLA IGG AB RUBELLA IGG AB Lab Routine Encounter for supervision of normal first in first trimester Maternal tobacco use in first trimester Expected: 08/13/2022, Expires: 10/13/2022 [facility] Work Phone: Comment on above: Expected: 08/13/2022 , Expires: 10/13/2022 Start: 08-13-2022 End: 10-13-2022 SYPHILIS TOTAL W/REFLEX SYPHILIS TOTAL W/REFLEX Lab Routine Encounter for supervision of normal first in first trimester Maternal tobacco use in first trimester Expected: 08/13/2022, Expires: 10/13/2022 [facility] Work Phone: Comment on above: Expected: 08/13/2022 , Expires: 10/13/2022 Start: 08-13-2022 End: 10-13-2022 TYPE + SCREEN TYPE + SCREEN Blood Bank Routine Encounter for supervision of normal first in first trimester Maternal tobacco use in first trimester Expected: 08/13/2022, Expires: 10/13/2022 [facility] Work Phone: Comment on above: Expected: 08/13/2022 , Expires: 10/13/2022 Start: 07-15-2022 Influenza vaccination INFLUENZA (#1) [facility] Start: 2022 PAP TESTING PAP TESTING [facility] Start: 2022 Screening for malign ant neoplasm of [facility] Start: 11-14-2021 DEPRESSION ASSESSMENT DEPRESSION ASS ESSMENT [facility] Start: 10-22-2021 EPV, Provider: Pat Giraldo, Status: Pen, Time: 9:00 AM EPV, Provider: Pat Giraldo, Status: Pen, Time: 9:00 AM [facility] Work Phone: Start: 10-22-2021 Patient encounter procedure [facility] Start: 07-16-2021 FUV, Provider: Pat Giraldo, Status: Pen, Time: 12:20 PM FUV, Provider: Pat Giraldo, Status: Pen, Time: 12:20 PM [facility] Work Phone: Start: 07-15-2021 Influenza vaccination Sequenti al Influenza Vaccine (#1) [facility] Start: 2020 Urine microalbumin profile DTAP,TDAP,TD (1 - Tdap) [facility] Start: 2019 Anxiety Screening Anxiety Screening [facility] Start: 2019 CHLAMYDIA SCREENING (18-24) CHLAMYDIA SCREENING (18-24) [facility] Start: 2019 Depression Screening Depression Scre ening [facility] Start: 2019 GC (GONORRHEA) SCREE DORIS (18-24) GC (GONORRHEA) SCREENING (18-24) [facility] Start: 2019 Hepatitis C screening Hepatitis C [facility] Start: 2019 HEPATITIS C SCREENING HEPATITIS C [facility] Start: 2019 HIV SCREENING HIV SCREENING [facility] Start: 05-28-2016 HPV Vaccine (2 - 2-d ose series) HPV Vaccine (2 - 2-dose series) [facility] Start: 05-28-2016 HPV Vaccines (2 - 2- dose series) HPV Vaccines (2 - 2-dose series) [facility] Start: 05-28-2016 Vaccination for katelin n papillomavirus HPV Vaccines (2 - 2-dose series) [facility] Start: 2016 HIV screening HIV Screening [facility] Start: 2015 PEDS TO ADULT TRANSI TION ANNUAL ASSESSMENT PEDS TO ADULT TRANSITION ANNUAL ASSESSMENT [facility] Start: 2013 Depression screening using PHQ-9 (Patient Health Questionnaire 9) score [facility] Start: 2013 PEDS TO ADULT TRANSI TION INITIAL DISCUSSION PEDS TO ADULT TRANSITION INITIAL DISCUSSION [facility] Start: 2012 HPV VACCINE (1 - 2-d ose series) HPV VACCINE (1 - 2-dose series) [facility] Start: 2006 COVID-19 Vaccine (1) COVID-19 Vaccin e (1) [facility] Start: 2004 History and physical examination, annual for health maintenance Wellness Visit [facility] Start: 2001 COVID-19 VACCINE (#1) COVID-19 VACCI NE (#1) [facility] Start: 2001 HEPATITIS B (1 of 3 - 3-dose series) HEPATITIS B (1 of 3 - 3-dose series) [facility] Start: 2001 HIV screening HIV Screening [facility] Start: 2001 Lipid panel Lipid Panel [facility] Start: 2001 Screening for Chlamy susie trachomatis Chlamydia Screening [facility] Start: 2001 Yearly Adult Physical Yearly Adult P hysical [facility] End: 01-13-2024 Bacteria identified in Urine by Culture [facility] Work Phone: Comment on above: Once (Lab) for 1 Occ urrences starting 01/13/2024 until 01/13/2024 Bacteria identified in Urine by Culture BACTERIAL CULTURE, URINE Microbiology Routine with uncertain dates, antepartum (HCC) 04/18/2025 2:03 PM EDT [facility] BACTERIAL VAGINOSIS NAAT BACTERI AL VAGINOSIS NAAT Lab Routine Vaginal discharge 06/11/2024 10:50 AM EDT [facility] REJI/TRICHOMONAS NAAT REJI /TRICHOMONAS NAAT Lab Routine Vaginal discharge 06/11/2024 10:50 AM [facility] Chlamydia trachomatis+Neisseria gonorrhoeae DNA [Presence] in Unspecified specimen by KAYLEE with probe detection GC/CHLAMYDIA DNA DET Lab Routine Encounter for supervision of normal first in first trimester Maternal tobacco use in first trimester 08/13/2022 10:58 AM [facility] Work Phone: Chlamydia trachomatis+Neisseria gonorrhoeae DNA [Presence] in Unspecified specimen by KAYLEE with probe detection GONORRHEA/CHLAMYDIA NAAT Lab Routine Vaginal discharge 06/11/2024 10:50 AM [facility] Chlamydia trachomatis+Neisseria gonorrhoeae DNA [Presence] in Unspecified specimen by KAYLEE with probe detection GONORRHEA/CHLAMYDIA NAAT Lab Routine with uncertain dates, antepartum (HCC) 04/18/2025 2:03 PM [facility] End: 01-13-2024 Extra Urine De Los Santos Tube [facility] Work Phone: Comment on above: Once for 1 Occurrenc es starting 01/13/2024 until 01/13/2024 NUCHAL TRANSLUCENCY WHI NUCHAL T RANSLUCENCY WHI Anc Imaging Routine Encounter for supervision of normal first in first trimester Maternal tobacco use in first trimester Ordered: 08/13/2022 [facility] Work Phone: Comment on above: Ordered: 08/13/2022 OBSTETRIC ULTRASOUND WHI OBSTETR IC ULTRASOUND WHI Anc Imaging Routine Encounter for supervision of normal first in first trimester Maternal tobacco use in first trimester Ordered: 08/13/2022 [facility] Work Phone: Comment on above: Ordered: 08/13/2022 End: 06-10-2026 OBSTETRIC ULTRASOUND WHI OBSTETRIC ULTRASOUND WHI Anc Imaging Routine 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, antepartum, single or unspecified fetus (HCC) Once per month for 8 Occurrences starting 06/24/2025 until 06/10/2026 [facility] Work Phone: Comment on above: Once per month for 8 Occurrences starting 06/24/2025 until 06/10/2026 PAP FLUID CERVICAL SCREENING PAP FLUID CERVICAL SCREENING Lab Routine Encounter for supervision of normal first in first trimester Maternal tobacco use in first trimester Encounter for screening for malignant neoplasm of cervix 08/13/2022 10:58 AM EDT [facility] Work Phone: PAP TEST PAP TEST Lab Rou robert with uncertain dates, antepartum (HCC) Screening for cervical cancer Screening for human papillomavirus (HPV) 04/18/2025 2:03 PM EDT [facility] Patient Education After a Vaginal [facility] Work Phone: Patient referral [facility] Work Phone: ROUTINE, GR OUP B STREP PCR ROUTINE, GROUP B STREP PCR Microbiology Routine 36 weeks gestation of 03/02/2023 3:57 PM EDT [facility] Work Phone: TRICHOMONAS VAGINALI S NAAT TRICHOMONAS VAGINALIS NAAT Lab Routine with uncertain dates, antepartum (HCC) 04/18/2025 2:03 PM EDT [facility] End: 01-13-2024 Urinalysis complete W Reflex Culture panel - Urine [facility] Service Area Work Phone: Comment on above: Once (Lab) for 1 Occ urrences starting 01/13/2024 until 01/13/2024 URINE OB DIP B/O URINE OB DIP B/ O Lab Routine 32 weeks gestation of Ordered: 01/28/2023 [facility] Work Phone: Comment on above: Ordered: 01/28/2023 URINE OB DIP B/O URINE OB DIP B/ O Lab Routine 36 weeks gestation of Ordered: 03/02/2023 [facility] Work Phone: Comment on above: Ordered: 03/02/2023 [facility] Immunizations Immunization Date Immunization Notes Care Provider Samaria stuart 12-31-2022 tetanus toxoid, redu nicky diphtheria toxoid, and acellular pertussis vaccine, adsorbed Chulaciera Lockett INSPECTOR [employer].CNM Work Phone: [facility] 09-10-2022 influenza, injectabl e, quadrivalent, contains preservative Nikki Zheng MD Work Phone: [facility] 09-10-2022 influenza virus vacc ine, unspecified formulation Pina Sheppard INSPECTOR [employer]IES.[employer]INE[employer] SETTER Work Phone: [facility] 03-27-2019 hepatitis B vaccine, pediatric or pediatric/adolescent dosage Pat Giraldo Work Phone: [facility] Work Phone: 03-27-2019 meningococcal B vacc ine, recombinant, OMV, adjuvanted Pat Giraldo Work Phone: [facility] Work Phone: 07-25-2018 haemophilus influenz ae type b vaccine, PRP-T conjugate Pat Giraldo Work Phone: [facility] Work Phone: 07-25-2018 hepatitis B vaccine, pediatric or pediatric/adolescent dosage Pat Giraldo Work Phone: [facility] Work Phone: 07-25-2018 meningococcal B vacc ine, recombinant, OMV, adjuvanted Pat Giraldo Work Phone: [facility] Work Phone: 07-25-2018 meningococcal polysaccharide (groups A, C, Y and W-135) diphtheria toxoid conjugate vaccine (MCV4P) Pat Giraldo Work Phone: [facility] Work Phone: 11-28-2015 Human Papillomavirus 9-valent vaccine Pat Giraldo Work Phone: [facility] Work Phone: 11-28-2015 influenza virus vacc ine, live, attenuated, for intranasal use Pat Giraldo Work Phone: [facility] Work Phone: 11-28-2015 HPV, unspecified formulation Soni Granados DO Work Phone: [facility] 08-09-2013 hepatitis A vaccine, pediatric/adolescent dosage, 2 dose schedule Soni Radha Work Phone: [facility] 08-09-2013 hepatitis A vaccine, unspecified formulation [facility] Work Phone: Comment on above: Series: 08-09-2013 influenza virus vacc ine, live, attenuated, for intranasal use Soni Granados DO Work Phone: [facility] 08-09-2013 influenza, live, intranasal, quadrivalent [facility] Work Phone: Comment on above: Series: 08-09-2013 meningococcal polysaccharide (groups A, C, Y and W-135) diphtheria toxoid conjugate vaccine (MCV4P) [facility] Work Phone: Comment on above: Series: 08-09-2013 poliovirus vaccine, inactivated Pat Bookerpster Work Phone: [facility] Work Phone: 08-09-2013 tetanus toxoid, redu nicky diphtheria toxoid, and acellular pertussis vaccine, adsorbed [facility] Work Phone: Comment on above: Series: 06-14-2011 hepatitis A vaccine, pediatric/adolescent dosage, 2 dose schedule Soni Radha DO Work Phone: [facility] 06-14-2011 hepatitis A vaccine, unspecified formulation Pat Dunlapter Work Phone: [facility] Work Phone: Comment on above: Series: 06-14-2011 varicella virus vaccine Stephanie Pritchard [place] Work Phone: [facility] Work Phone: Comment on above: Series: 06-14-2011 hepatitis A vaccine, unspecified formulation Wendy Ruvalcaba [facility] Work Phone: 06-14-2011 varicella virus vaccine Wendy pretty [facility] Work Phone: 06-29-2006 diphtheria, tetanus toxoids and acellular pertussis vaccine Pat Pritchard [place] Work Phone: [facility] Work Phone: 06-29-2006 measles, mumps and rubella virus vaccine Pat Pritchard [place] Work Phone: [facility] Work Phone: 06-29-2006 poliovirus vaccine, inactivated Pat Pritchard [place] Work Phone: [facility] Work Phone: 09-16-2003 hepatitis B vaccine, pediatric or pediatric/adolescent dosage Pat Bookerpster Work Phone: [facility] Work Phone: 09-16-2003 pneumococcal conjuga te vaccine, 7 valent Pat Pritchard [place] Work Phone: [facility] Work Phone: 02-13-2003 poliovirus vaccine, inactivated Pat Pritchard [place] Work Phone: [facility] Work Phone: 08-13-2002 diphtheria, tetanus toxoids and acellular pertussis vaccine Pat Pritchard [place] Work Phone: [facility] Work Phone: 08-13-2002 haemophilus influenz ae type b vaccine, conjugate unspecified formulation Pat Pritchard [place] Work Phone: [facility] Work Phone: 08-13-2002 measles, mumps and rubella virus vaccine Pat Pritchard [place] Work Phone: [facility] Work Phone: 08-13-2002 varicella virus vaccine Stephanie Pritchard [place] Work Phone: [facility] 2001 diphtheria, tetanus toxoids and acellular pertussis vaccine Pat Pritchard [place] Work Phone: [facility] Work Phone: 2001 haemophilus influenz ae type b vaccine, HbOC conjugate Pat [facility] Work Phone: [facility] Work Phone: 2001 pneumococcal conjuga te vaccine, 7 valent Pat Pritchard [place] Work Phone: [facility] Work Phone: 2001 poliovirus vaccine, inactivated Pat Pritchard [place] Work Phone: [facility] Work Phone: 2001 diphtheria, tetanus toxoids and acellular pertussis vaccine Pat Pritchard [place] Work Phone: [facility] Work Phone: 2001 haemophilus influenz ae type b vaccine, HbOC conjugate Pat Macho [place] Work Phone: [facility] Work Phone: 2001 pneumococcal conjuga te vaccine, 7 valent Pat Dunlapter Work Phone: [facility] Work Phone: 2001 poliovirus vaccine, inactivated Pat Dunlapter Work Phone: [facility] Work Phone: Payers Date Payer Category Payer Medicaid (Managed Care) [facility] [id number] 2023 Self-pay 2022 Unknown [id number] 2021 Medicaid [id number] 2020 Medicaid [id number] 2019 Unknown 2018 Private Health Insurance 2001 Unknown [id number] [id number]. 90 2001 Unknown [id number] 2.16.840.1.227676.3.579.2. 903 2001 Unknown [id number] 2.16.840.1.793538.3.579.2. 1069 2001 Unknown [id number] 2.16.840.1.970649.3.579.2. 1069 2001 Unknown [id number] 2.16.840.1.063766.3.579.2. 1069 2001 Unknown [id number] 2.16.840.1.702598.3.579.2. 1069 2001 Unknown [id number] 2.16.840.1.944266.3.579.2. 1069 2001 Unknown [id number] 2.16.840.1.166853.3.579.2. 1245 2001 Unknown [id number] 2.16.840.1.674822.3.579.2. 159 2001 Unknown [id number] 2.16.840.1.569522.3.579.2. 3 2001 Unknown [id number] 2.16.840.1.730877.3.579.2. 3 2001 Unknown [id number] 2.840.1.991822.3.579.2. 3 2001 Unknown [id number] 2.16840.1.198434.3.579.2. 3 2001 Unknown [id number] 2.16840.1.302155.3.579.2. 1244 1984 Unknown [id number] 2.16840.1.158097.3.579.2. 717 1984 Unknown [id number] 2.840.1.215081.3.579.2. 717 1984 Unknown [id number] 2.16840.1.501528.3.579.2. 717 Unknown [id number] 2.16840.1.041315.3.579.2. 462 Unknown [id number] 2.16840.1.808769.3.579.2. 462 Unknown [id number] 2.16840.1.578018.3.579.2. 462 Unknown [id number] 2.16840.1.211683.3.579.2. 462 Unknown [id number] 2.16840.1.690808.3.579.2. 462 Unknown [id number] 2.16.840.1.898624.3.579.2. 462 Unknown [id number] 2.16.840.1.123053.3.579.2. 462 Social History Date Type Detail Facility Start: 03-21-2023 Tobacco smokin g consumption unknown [facility] Start: 08-31-2023 End: 08-27-2025 No alcohol use No alcohol use [facility] Work Phone: Start: 01-08-2022 End: 08-31-2023 Tobacco smoking status NHIS Never smoked tobacco [facility] Start: 01-08-2022 End: 08-31-2023 Tobacco use and exposure Smokeless tobacco non-user [facility] Start: 01-08-2022 End: 08-30-2025 Alcohol intake Ex-drinker (finding) [facility] Start: 2001 Sex Assigned At Not on file [facility] Start: 12-29-2021 End: 04-10-2025 Exposure to SARS-CoV-2 (event) Not sure [facility] Start: 06-25-2015 Alcohol intake 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 severity rating scale 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 - recent [C-SSRS] [facility] Work Phone: NEGATED: Highlighted row Functional performance Functional status health issues are not documented Disease [facility] Work Phone: Mental Status Date Assessment Result Facility 03-18-2023 Cognitive function Voice/Name [facility] Work Phone: 03-16-2023 Cognitive function Awake;Alert;A [employer]pri[employer] te;Follows Commands [facility] Work Phone: 03-14-2023 Cognitive function Awake;Alert;A [employer] te;Follows Commands [facility] Work Phone: 03-11-2023 Cognitive function Awake;Alert;A [employer]pria te;Follows Commands [facility] Work Phone: NEGATED: Highlighted row Cognitive function [Interpretation] Cognitive status health issues are not documented [facility] Work Phone: Clinical Notes 01-08-2022 to 09-09-2025 Cally Hedrick, GEN-RHINESTONE SETTER - 08/27/2025 3:40 PM EDTPatiJenelle Welch MD - 07/29/2025 11:23 AM Loretta Levine MD - 07/09/2025 6:46 PM EDTCIsaac martins [facility] - 06/12/2025 1:00 PM EDT Note Date & Type Note Facility 09-09-2025 Note HNO ID: [id number] Author: AZAEL ZIMMERMAN MA Service: ? Author Type: Advanced Clinical Specialist Type: Progress Notes Filed: 09/09/2025 15:51 Note Text: Patient identified by name and date of . Nichol Mcelroy presents today for a vaccination of Tdap. Patient denies an allergy to latex: yes Patient denies a severe (life-threatening) allergy to a previous dose of Tdap, DTP, DTaP, DT or Td vaccine. Yes Patient denies history of epilepsy or neurological problems: Yes Patient is afebrile and denies being moderately or severely ill: Yes Patient denies history of Guillain-Waldo Syndrome (a severe paralytic illness): Yes Tdap Adacel injection was given without incident. See immunizations for details of immunizations administered today. VIS sheet provided: Yes Provider Darcy was present in office at time of injection. Azael Zimmerman MA [facility] 08-27-2025 History of Present illness Narrative Subjective Patient ID: Nichol Mcelroy is a 25 y.o. female who presents for Follow-up, Fall, Wrist Injury, and Hemorrhoids. HPI Nichol returns for wrist pain, and concerns for hemorrhoids. Rigtht wrist: she reports she fell about a week ago, and is still having pain in her wrist with some ROM. She reports she fell with an outstretched hand. She reports it did swell a little. She applied ice to area. However she is currently so she is unable to take NSAIDs or get imaging at this time. Hemorrhoids: she reports she has been having trouble with hemorrhoids. Has been getting constipated since being and has been having hemorrhoids with pain in her rectum. She has tried witch joe and tucks pads without symptom relief. Review of Systems Constitutional: Negative for fatigue. Respiratory: Negative for chest tightness and shortness of breath. Cardiovascular: Negative for chest pain, palpitations and leg swelling. Gastrointestinal: Positive for anal bleeding (just when she wipes when she has a hard stool), constipation and rectal pain (hemorrhoids). Negative for abdominal pain, blood in stool, diarrhea, nausea and vomiting. Genitourinary: Negative for dysuria. Musculoskeletal: Positive for arthralgias (right wrist pain). Negative for myalgias. Skin: Negative for color change. Neurological: Negative for dizziness, light-headedness, numbness and headaches. Psychiatric/Behavioral: Negative. Objective BP 100/60 Pulse 103 Ht 1.702 m (5' 7) Wt 78.2 kg (172 lb 8 oz) BMI 27.02 kg/m Physical Exam Vitals and nursing note reviewed. Constitutional: Appearance: Normal appearance. HENT: Head: Normocephalic and atraumatic. Cardiovascular: Rate and Rhythm: Tachycardia present. Pulses: Normal pulses. Heart sounds: Normal heart sounds. Pulmonary: Effort: Pulmonary effort is normal. Breath sounds: Normal breath sounds. Abdominal: General: Bowel sounds are normal. Palpations: Abdomen is soft. Musculoskeletal: General: Tenderness (right wrist) present. Right wrist: Decreased range of motion (due to pain). Cervical back: Normal range of motion. Skin: General: Skin is warm and dry. Neurological: General: No focal deficit present. Mental Status: She is alert and oriented to person, place, and time. Psychiatric: Mood and Affect: Mood normal. Behavior: Behavior normal. Thought Content: Thought content normal. Judgment: Judgment normal. Assessment/Plan Problem List Items Addressed This Visit ICD-10-CM BMI 27.0-27.9,adult Z68.27 Other Visit Diagnoses Codes Right wrist pain - Primary M25.531 wrist brace Hemorrhoids, unspecified hemorrhoid type K64.9 anusol cream as needed Relevant Medications hydrocortisone (Anusol-HC) 2.5 % rectal cream Follow up as needed. Return precautions discussed. She verbalized understanding. Discussed when to seek urgent/emergent care. For any new medications that were prescribed today, the patient was educated about their indications for use, administration, frequency and potential side effects of the medication. documented in this encounter [facility] Work Phone: 07-29-2025 Instructions Jenelle Lockwood MD - 07/29/2025 2:16 PM EDT We recommend follow up for your baby in the outpatient pediatric cardiology clinic 1-2 months after . Please call [phone] to schedule an appointment at a location convenient for you. documented in this encounter [facility] 07-29-2025 Note HNO ID: [id number] Author: JENELLE LOCKWOOD MD Service: ? Author Type: Physician Type: Progress Notes Filed: 07/29/2025 14:18 Note Text: NAME: Nichol Mcelroy CLINIC Number.: [id number] Date of : 2000 Date of Visit: July 29, 2025 Referring Provider: Margo Bland MD Dear Dr. Bland, Consultation requested for an opinion regarding Nichol Mcelroy. My final recommendations will be communicated back to the requesting physician by way of shared Medical record or letter to requesting physician via [place] mail. Ms. Nichol Mcelroy was seen for echocardiogram and pediatric cardiology consultation on July 29, 2025. 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 She herself has no significant past medical history. There is no family history of congenital heart disease. Her cousin had a IUFD of a fetus with confirmed Tuner syndrome at 24 weeks gestation. Echocardiogram Summary: 1. Segmental anatomy and situs are normal. 2. Widely patent foramen ovale with normal intrauterine right to left flow. 3. Qualitatively normal right ventricular size and wall thickness with normal systolic function. 4. Normal left ventricular size and wall thickness with normal systolic function. 5. Aortic arch is widely patent. 6. Ductal arch is widely patent with normal intrauterine right to left flow. 7. Normal heart rate and rhythm. 8. No pericardial effusion. Please see full echocardiogram report for complete details. Assessment and Plan: In summary, the echocardiogram today showed normal intracardiac anatomy with normal ventricular function and normal heart rate and rhythm. We discussed these findings with Ms. Nichol Mcelroy. In addition, the limitations of the echocardiogram and echocardiography in general, including the inability to exclude ASDs, some VSDs, minor valvar abnormalities, partial anomalous pulmonary venous return, persistent patent ductus arteriosus, and coarctation of the aorta, were explained. We discussed the cardiac manifestations of Wang syndrome and reassured Ms. Mcelroy that today's echo ruled out any major congenital heart defects. However, lesions such as bicuspid aortic valve, coarctation, PAPVR, etc. Cannot completely be ruled out be echocardiogram. Based on these data we did not recommend any specific further cardiac evaluation, though we would be happy to see her back should new concerns arise. I recommend cardiology follow up 1 month after with an echocardiogram to rule out any minor associated defects with Wang Syndrome. Thank you for allowing me to participate in the care of your patient and please do not hesitate to contact me if I can be any further assistance. I spent a total of 45 minutes on the date of the service which included preparing to see the patient, [id number] patient care, completing clinical documentation, obtaining and/or reviewing separately obtained history, counseling and educating the patient/family/caregiver, communicating with other HCPs (not separately reported), communicating results to the patient/family/caregiver, and care coordination (not separately reported). Sincerely, Jenelle Lockwood MD July 29, 2025 [facility] 07-29-2025 History of Present illness Narrative NAME: Nichol Mcelroy CLINIC Number.: [id number] Date of : 2000 Date of Visit: July 29, 2025 Referring Provider: Margo Bland MD Dear Dr. Bland, Consultation requested for an opinion regarding Nichol Mcelroy. My final recommendations will be communicated back to the requesting physician by way of shared Medical record or letter to requesting physician via [place] mail. Ms. Nichol Mcelroy was seen for echocardiogram and pediatric cardiology consultation on July 29, 2025. 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 She herself has no significant past medical history. There is no family history of congenital heart disease. Her cousin had a IUFD of a fetus with confirmed Tuner syndrome at 24 weeks gestation. Echocardiogram Summary: 1. Segmental anatomy and situs are normal. 2. Widely patent foramen ovale with normal intrauterine right to left flow. 3. Qualitatively normal right ventricular size and wall thickness with normal systolic function. 4. Normal left ventricular size and wall thickness with normal systolic function. 5. Aortic arch is widely patent. 6. Ductal arch is widely patent with normal intrauterine right to left flow. 7. Normal heart rate and rhythm. 8. No pericardial effusion. Please see full echocardiogram report for complete details. Assessment and Plan: In summary, the echocardiogram today showed normal intracardiac anatomy with normal ventricular function and normal heart rate and rhythm. We discussed these findings with Ms. Nichol Mcelroy. In addition, the limitations of the echocardiogram and echocardiography in general, including the inability to exclude ASDs, some VSDs, minor valvar abnormalities, partial anomalous pulmonary venous return, persistent patent ductus arteriosus, and coarctation of the aorta, were explained. We discussed the cardiac manifestations of Wang syndrome and reassured Ms. Mcelroy that today's echo ruled out any major congenital heart defects. However, lesions such as bicuspid aortic valve, coarctation, PAPVR, etc. Cannot completely be ruled out be echocardiogram. Based on these data we did not recommend any specific further cardiac evaluation, though we would be happy to see her back should new concerns arise. I recommend cardiology follow up 1 month after with an echocardiogram to rule out any minor associated defects with Wang Syndrome. Thank you for allowing me to participate in the care of your patient and please do not hesitate to contact me if I can be any further assistance. I spent a total of 45 minutes on the date of the service which included preparing to see the patient, [id number] patient care, completing clinical documentation, obtaining and/or reviewing separately obtained history, counseling and educating the patient/family/caregiver, communicating with other HCPs (not separately reported), communicating results to the patient/family/caregiver, and care coordination (not separately reported). Sincerely, Jenelle Lockwood MD July 29, 2025 documented in this encounter [facility] 07-09-2025 Note HNO ID: [id number] Author: LORETTA BURGOS MD Service: ? Author Type: Physician Type: Progress Notes Filed: 07/20/2025 20:34 Note Text: [facility] OUTPATIENT VISIT July 09, 2025 Medicine Consult REFERRING PROVIDER: Dirk Liu MD Recommendations from today's consultation will be conveyed through the electronic medical record. 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 She has no medical problems, no allergies, and no prior surgeries other than wisdom tooth extraction. Family history is notable for a grandfather with spina bifida who lived a normal life after repair. She previously met with Genetics and today asks about miscarriage risk and how a reassuring ultrasound changes that risk. Upon review of the patient?s medical, surgical, and family histories, all aspects are unremarkable except for those mentioned in the remainder of this note. ultrasound was performed today and here are the pertinent findings: single, live intrauterine ; crown-rump length concordant with dates; nuchal translucency (NT) increased at 3.6 mm; otherwise no malformations seen on an incomplete first-trimester anatomic assessment; normal amniotic fluid; posterior placenta. We reviewed that not all structural malformations can be detected by ultrasound. Obstetric History: # 1 - Date: 03/21/23, Sex: Female, Weight: None, GA: 39w4d, Type: Vaginal, Spontaneous, Apgar1: 8, Apgar5: 9, Living: Living, Comments: spontaneous labor, EBL 400mL, 2nd degree perineal laceration # 2 - Date: None, Sex: None, Weight: None, GA: None, Type: None, Apgar1: None, Apgar5: None, Living: None, Comments: None Gynecologic History: Non-contributory Past Medical History: PAST MEDICAL HISTORY Diagnosis Date Anemia Anxiety Asthma (HCC) sport induced, off medication since 2010 Depression Depression Fracture of upper extremity Left arm History of maternal blood transfusion, currently (HCC) History of depression Orthostatic hypotension Personal history of nonsuicidal self-harm age 14, scars noted to left forearm Past Surgical History: PAST SURGICAL HISTORY Procedure Laterality Date PAST SURGICAL HISTORY OF wisdom teeth Medications: Current Outpatient Medications on File Prior to Visit Medication Sig ferrous sulfate 325 mg (65 mg iron) tablet Take 1 tablet by mouth every other day. aspirin, enteric coated (ECOTRIN LOW STRENGTH) 81 mg EC tablet Take 1 tablet by mouth once daily. ondansetron (ZOFRAN) 4 mg tablet Take 1 tablet by mouth every 8 hours as needed for nausea/vomiting. No current facility-administered medications on file prior to visit. Allergies: ALLERGIES No Known Allergies Social History: SOCIAL HISTORY[1] Family History: FAMILY HISTORY Problem Relation Age of Onset Anxiety disorder Mother other (adenomyosis) Mother No Known Problems Father Anxiety disorder Sister ADD/ADHD Sister Cancer Paternal Grandfather Asthma Half-brother No Known Problems Half-brother No Known Problems Half-sister Anxiety disorder Half-sister Review of Systems: Negative other than as noted above. Physical Exam: Height Weight BMI Pulse BP Resp O2 Sat Temp Pain Gen: Well-appearing, no acute distress CV/Resp: Non-labored breathing on room air Abd: Gravid, non-tender Ext: Moving spontaneously, no significant edema b/l Assessment and Plan: 25 year old at 19 weeks and 2 days presenting for MFM consultation due to positive NIPT screening for Monosomy X and h/o increased NT. Discussion: We reviewed that cfDNA is a screening test. For monosomy X, published positive predictive values (PPV) vary widely by population, laboratory, and clinical context (roughly ~20-70% overall). Given the increased NT (3.6 mm)--a first-trimester phenotype associated with Wang syndrome and other aneuploidies--the chance that this screen is a true positive is higher than in the general screening population. A normal early scan does not exclude Wang syndrome; the differential remains 45,X, mosaic monosomy X, or a false-positive due to confined placental mosaicism or, rarely, maternal mosaicism. Definitive diagnosis requires karyotype via amniocentesis. Contemporary data support a procedure-related -loss risk on the order of ~0.1-0.3%, lower in experienced centers. We discussed that the oft-quoted ?~99% miscarriage? refers to conceptions with monosomy X--most losses occur in the first trimester. In ongoing pregnancies without hydrops, the risk of loss is much lower. Because Wang syndrome is enriched for left-sided congenital heart disease (e.g., coarctation, bicuspid aortic valve), we recommended a formal echocardiogram; even with a normal echo, po (more content not included)... [facility] 07-09-2025 History of Present illness Narrative Images from the original note were not included. [facility] OUTPATIENT VISIT July 09, 2025 Medicine Consult REFERRING PROVIDER: Dirk Liu MD Recommendations from today's consultation will be conveyed through the electronic medical record. 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 She has no medical problems, no allergies, and no prior surgeries other than wisdom tooth extraction. Family history is notable for a grandfather with spina bifida who lived a normal life after repair. She previously met with Genetics and today asks about miscarriage risk and how a reassuring ultrasound changes that risk. Upon review of the patient s medical, surgical, and family histories, all aspects are unremarkable except for those mentioned in the remainder of this note. ultrasound was performed today and here are the pertinent findings: single, live intrauterine ; crown-rump length concordant with dates; nuchal translucency (NT) increased at 3.6 mm; otherwise no malformations seen on an incomplete first-trimester anatomic assessment; normal amniotic fluid; posterior placenta. We reviewed that not all structural malformations can be detected by ultrasound. Obstetric History: # 1 - Date: 03/21/23, Sex: Female, Weight: None, GA: 39w4d, Type: Vaginal, Spontaneous, Apgar1: 8, Apgar5: 9, Living: Living, Comments: spontaneous labor, EBL 400mL, 2nd degree perineal laceration # 2 - Date: None, Sex: None, Weight: None, GA: None, Type: None, Apgar1: None, Apgar5: None, Living: None, Comments: None Gynecologic History: Non-contributory Past Medical History: PAST MEDICAL HISTORY Diagnosis Date Anemia Anxiety Asthma (HCC) sport induced, off medication since 2010 Depression Depression Fracture of upper extremity Left arm History of maternal blood transfusion, currently ([facility]) History of depression Orthostatic hypotension Personal history of nonsuicidal self-harm age 14, scars noted to left forearm Past Surgical History: PAST SURGICAL HISTORY Procedure Laterality Date PAST SURGICAL HISTORY OF wisdom teeth Medications: Current Outpatient Medications on File Prior to Visit Medication Sig ferrous sulfate 325 mg (65 mg iron) tablet Take 1 tablet by mouth every other day. aspirin, enteric coated (ECOTRIN LOW STRENGTH) 81 mg EC tablet Take 1 tablet by mouth once daily. ondansetron (ZOFRAN) 4 mg tablet Take 1 tablet by mouth every 8 hours as needed for nausea/vomiting. No current facility-administered medications on file prior to visit. Allergies: ALLERGIES No Known Allergies Social History: SOCIAL HISTORY[1] Family History: FAMILY HISTORY Problem Relation Age of Onset Anxiety disorder Mother other (adenomyosis) Mother No Known Problems Father Anxiety disorder Sister ADD/ADHD Sister Cancer Paternal Grandfather Asthma Half-brother No Known Problems Half-brother No Known Problems Half-sister Anxiety disorder Half-sister Review of Systems: Negative other than as noted above. Physical Exam: Height Weight BMI Pulse BP Resp O2 Sat Temp Pain Gen: Well-appearing, no acute distress CV/Resp: Non-labored breathing on room air Abd: Gravid, non-tender Ext: Moving spontaneously, no significant edema b/l Assessment and Plan: 25 year old at 19 weeks and 2 days presenting for MFM consultation due to positive NIPT screening for Monosomy X and h/o increased NT. Discussion: We reviewed that cfDNA is a screening test. For monosomy X, published positive predictive values (PPV) vary widely by population, laboratory, and clinical context (roughly ~20-70% overall). Given the increased NT (3.6 mm)--a first-trimester phenotype associated with Wang syndrome and other aneuploidies--the chance that this screen is a true positive is higher than in the general screening population. A normal early scan does not exclude Wang syndrome; the differential remains 45,X, mosaic monosomy X, or a false-positive due to confined placental mosaicism or, rarely, maternal mosaicism. Definitive diagnosis requires karyotype via amniocentesis. Contemporary data support a procedure-related -loss risk on the order of ~0.1-0.3%, lower in experienced centers. We discussed that the oft-quoted ~99% miscarriage refers to conceptions with monosomy X--most losses occur in the first trimester. In ongoing pregnancies without hydrops, the risk of loss is much lower. Because Wang syndrome is enriched for left-sided congenital heart disease (e.g., coarctation, bicuspid aortic valve), we recommended a formal echocardiogram; even with a normal echo, cardiology remains standard. We emphasized that Wang syndrome is typically sporadic with low recurrence risk for future pregnancies. We reviewed the need for confirmatory chromosome testing from cord blood, echocardiogram prior to discharge, renal ultrasound, and completion of the hearing screen. Infants with TS have higher rates of feeding difficulty and hypoglycemia; glucose monitoring in the first 48 h is recommended. We discussed routine, guideline-based surveillance for common comorbidities: periodic aortic imaging (TTE/CMR) tailored to risk; blood pressure monitoring; thyroid (TSH) every 1-2 years from age 2; celiac screening (tTG-IgA with total IgA) starting at age 2, every 2-5 years; liver enzymes, diabetes screening (A1c or fasting glucose), and lipids per pediatric guidance; audiology (behavioral hearing evaluation every 2-3 years in childhood, every 5 years in adults, sooner if concerns); orthopedic screening (scoliosis, genu valgum); and vision exam at 6-12 months, then as indicated. Growth is tracked on TS-specific charts; growth hormone is considered when indicated to improve adult height. Puberty is managed with physiologic estrogen induction (typically ~11-12 years if FSH elevated), with later addition of progestin, and continued sex-steroid replacement through the average age of menopause for bone, metabolic, and QoL benefits. Adults require lifelong aortic surveillance indexed to body size (e.g., ASI/AHI). Thresholds of ASI > 2.3 cm/m with additional risk factors or ASI >= 2.5 cm/m alone warrant evaluation for elective aortic surgery and are generally considered contraindications to . Pre- counseling includes cardiology assessment with CMR, blood-pressure control, and risk discussion; in TS carries a small but real maternal risk of aortic dissection/rupture. Long-term care also includes bone health (vitamin D, calcium, DXA after growth and every 5-10 years), metabolic screening (lipids, diabetes), thyroid, celiac, liver disease assessment, and hearing support. Fertility is commonly reduced; donor oocyte IVF is often required, and pre-conception aortic evaluation is essential. Summary of Recommendations: 1- Genetic evaluation. Genetic counseling completed today. Offer amniocentesis now for karyotype rapid sex-chromosome FISH, with reflex chromosomal microarray as indicated. If invasive testing is declined, collect cord blood for karyotype WHEAT GROWER to confirm/exclude TS. 2- echocardiography. Schedule a echo (given NT 3.6 mm and cfDNA result). Repeat per cardiology if abnormal or if new findings arise. 3- MRI. 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 4- NICU / Palliative care. Not indicated prenatally based on current findings; if a significant cardiac lesion is diagnosed, arrange NICU + pediatric cardiac ICU consults at 28-32 weeks and pediatric cardiac surgery consult as indicated. 5- Follow-up imaging. Growth ultrasound every 4 weeks to monitor EFW/AC and long-bone parameters; continue anatomic surveillance for lymphatic findings or hydrops starting at 24 weeks . 6- testing. No routine NST/BPP at this stage; initiate weekly testing at 32-34 weeks 7- Delivery planning. Term delivery at the patient s local hospital; route per standard obstetric indications (suspected TS alone is not an indication for ). Ensure neonatology present if concerns arise. Thank you for allowing us to participate in the care of this patient. Please do not hesitate to contact our office with any questions or concerns. I spent a total of 90 minutes on the date of the service which included preparing to see the patient, [id number] patient care, completing clinical documentation, obtaining and/or reviewing separately obtained history, performing a medically appropriate examination, counseling and educating the patient/family/caregiver, ordering medications, tests, or procedures, and communicating with other HCPs (not separately reported). SIGNATURE: Loretta Burgos MD PATIENT NAME: Nichol Mcelroy DATE: July 20, 2025 TIME: 6:46 PM [1] Social History Tobacco Use Smoking status: Never Smokeless tobacco: Never Vaping Use Vaping status: current everyday user Substances: Nicotine, Flavoring Devices: Pre-filled or refillable cartridge Substance Use Topics Alcohol use: Not Currently Comment: Occasionally Drug use: Never documented in this encounter [facility] 07-04-2025 Telephone encounter Note See 07/04/2025 telephone encounter. TERRENCE Edwards [facility] Work Phone: 07-04-2025 Miscellaneous Notes See 07/04/2025 telephone encounter. TERRENCE Edwards documented in this encounter [facility] 07-04-2025 Telephone encounter Note Called Nichol Mcelroy per her [employer] message. Reviewed her upcoming appointments and questions answered. Patient voices she is comfortable with plan of anatomy ultrasound on 07/09/2025. TERRENCE Edwards [facility] Work Phone: 07-04-2025 Miscellaneous Notes Called Nichol Mcelroy per her [employer] message. Reviewed her upcoming appointments and questions answered. Patient voices she is comfortable with plan of anatomy ultrasound on 07/09/2025. TERRENCE Edwards documented in this encounter [facility] 06-27-2025 Telephone encounter Note Call to Navi at the request of Dr Burgos to introduce myself as patient centered care specialist and the Care Center. Nichol is agreeable to going to [facility] for needed appointments. Discussion of the services offered including support, education, coordination of care and appointment scheduling. My contact information was provided and Nichol was invited to call with any questions or concerns. Also reviewed the multi-disciplinary team meetings in which patient's case will be discussed to optimize care planning. Patient's questions answered to the best of my ability. [facility] 06-27-2025 Miscellaneous Notes Call to Navi at the request of Dr Burgos to introduce myself as patient centered care specialist and the Care Center. Nichol is agreeable to going to [facility] for needed appointments. Discussion of the services offered including support, education, coordination of care and appointment scheduling. My contact information was provided and Nichol was invited to call with any questions or concerns. Also reviewed the multi-disciplinary team meetings in which patient's case will be discussed to optimize care planning. Patient's questions answered to the best of my ability. documented in this encounter [facility] 06-18-2025 Note HNO ID: [id number] Author: MAKI DAVIS MD Service: ? 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 I have communicated my name and active licensure. The patient's identity and physical location were verified at the time of this visit. Either the patient or their legal event sales representative has been informed of the risks and benefits of -- and alternatives to -- treatment through a remote evaluation and consents to proceed with the evaluation remotely. History of Present Illness: 25 year old at 16w2d with Estimated Date of Delivery: 12/01/25 presenting for consultation with Maternal- Medicine at the [facility] in the setting of +cell free DNA screening for monosomy X. 1st trimester ultrasound notable for thickened NT measuring 3.6 mm. She already had a genetics consult on 06/06 with a follow up phone call 06/10 after the cell free DNA result. She has already been counseled on the nature of cell free DNA as a screening test and the option of diagnostic testing. Early anatomy scan today did not demonstrate any anomalies. Her relevant histories have been updated and are reviewed below: Obstetric History: # 1 - Date: 03/21/23, Sex: Female, Weight: None, GA: 39w4d, Type: Vaginal, Spontaneous, Apgar1: 8, Apgar5: 9, Living: Living, Comments: spontaneous labor, EBL 400mL, 2nd degree perineal laceration # 2 - Current Past Medical History: PAST MEDICAL HISTORY Diagnosis Date Anemia Anxiety Asthma (HCC) sport induced, off medication since 2010 Depression Depression Fracture of upper extremity Left arm History of maternal blood transfusion, currently (HCC) History of depression Orthostatic hypotension Personal history of nonsuicidal self-harm age 14, scars noted to left forearm Past Surgical History: PAST SURGICAL HISTORY Procedure Laterality Date PAST SURGICAL HISTORY OF wisdom teeth Medications: Current Outpatient Medications on File Prior to Visit Medication Sig aspirin, enteric coated (ECOTRIN LOW STRENGTH) 81 mg EC tablet Take 1 tablet by mouth once daily. ondansetron (ZOFRAN) 4 mg tablet Take 1 tablet by mouth every 8 hours as needed for nausea/vomiting. No current facility-administered medications on file prior to visit. Allergies: ALLERGIES No Known Allergies Social History: Social History Tobacco Use Smoking status: Never Smokeless tobacco: Never Vaping Use Vaping status: current everyday user Substances: Nicotine, Flavoring Devices: Pre-filled or refillable cartridge Substance Use Topics Alcohol use: Not Currently Comment: Occasionally Drug use: Never Family History: FAMILY HISTORY Problem Relation Age of Onset Anxiety disorder Mother other (adenomyosis) Mother No Known Problems Father Anxiety disorder Sister ADD/ADHD Sister Cancer Paternal Grandfather Asthma Half-brother No Known Problems Half-brother No Known Problems Half-sister Anxiety disorder Half-sister No history of congenital anomalies. No history of bleeding/clotting disorders. Review of Systems: Negative other than as noted above. Virtual Physical Exam: Well-appearing and in NAD Conversing normally Assessment and Plan: 25 year old at 16w2d presenting for MFM consultation due to positive screening test for monosomy X and elevated NT on 1st trimester scan. We discussed the higher likelihood of true positivity of the screening test given the concurrent ultrasound finding, and we reviewed the normal ultrasound today. We reviewed that monosomy X, also called Wang syndrome, happens when a baby girl has only one working X chromosome instead of two. Some babies have this in all cells (45,X). Others have a ?mosaic? pattern (a mix of cells with and without monosomy X). The condition can vary widely from mild to more noticeable features Because false positives are more common for monosomy X than for Down syndrome on cell free DNA screening (also called NIPT), we recommend considering diagnostic testing (amniocentesis) to confirm. We reviewed that if desired, these results can help patients make decisions about continuation or just provide certainty about the diagnosis. We then reviewed that some fetuses with Wang syndrome have findings like a thick nuchal fold, cystic hygroma (fluid-filled area at the back of the neck), swelling, heart differences (especially left-sided, like coarctation), kidney differences, or growth restriction. She has previously been counseled about the high risk of miscarriage. We also reviewed that the phenotype of T (more content not included)... [facility] 06-18-2025 History of Present illness Narrative Images from the original note were not included. Business Education Instructor & [facility] [place] OUTPATIENT VISIT DATE June 18, 2025 OUTPATIENT VISIT TYPE VIRTUAL CONSULT REFERRING PROVIDER: Lino Kumar MD Recommendations from today's consultation will be conveyed through the electronic medical record. I have communicated my name and active licensure. The patient's identity and physical location were verified at the time of this visit. Either the patient or their legal event sales representative has been informed of the risks and benefits of -- and alternatives to -- treatment through a remote evaluation and consents to proceed with the evaluation remotely. History of Present Illness: 25 year old at 16w2d with Estimated Date of Delivery: 12/01/25 presenting for consultation with Maternal- Medicine at the [facility] in the setting of +cell free DNA screening for monosomy X. 1st trimester ultrasound notable for thickened NT measuring 3.6 mm. She already had a genetics consult on 06/06 with a follow up phone call 06/10 after the cell free DNA result. She has already been counseled on the nature of cell free DNA as a screening test and the option of diagnostic testing. Early anatomy scan today did not demonstrate any anomalies. Her relevant histories have been updated and are reviewed below: Obstetric History: # 1 - Date: 03/21/23, Sex: Female, Weight: None, GA: 39w4d, Type: Vaginal, Spontaneous, Apgar1: 8, Apgar5: 9, Living: Living, Comments: spontaneous labor, EBL 400mL, 2nd degree perineal laceration # 2 - Current Past Medical History: PAST MEDICAL HISTORY Diagnosis Date Anemia Anxiety Asthma (HCC) sport induced, off medication since 2010 Depression Depression Fracture of upper extremity Left arm History of maternal blood transfusion, currently ([facility]) History of depression Orthostatic hypotension Personal history of nonsuicidal self-harm age 14, scars noted to left forearm Past Surgical History: PAST SURGICAL HISTORY Procedure Laterality Date PAST SURGICAL HISTORY OF wisdom teeth Medications: Current Outpatient Medications on File Prior to Visit Medication Sig aspirin, enteric coated (ECOTRIN LOW STRENGTH) 81 mg EC tablet Take 1 tablet by mouth once daily. ondansetron (ZOFRAN) 4 mg tablet Take 1 tablet by mouth every 8 hours as needed for nausea/vomiting. No current facility-administered medications on file prior to visit. Allergies: ALLERGIES No Known Allergies Social History: Social History Tobacco Use Smoking status: Never Smokeless tobacco: Never Vaping Use Vaping status: current everyday user Substances: Nicotine, Flavoring Devices: Pre-filled or refillable cartridge Substance Use Topics Alcohol use: Not Currently Comment: Occasionally Drug use: Never Family History: FAMILY HISTORY Problem Relation Age of Onset Anxiety disorder Mother other (adenomyosis) Mother No Known Problems Father Anxiety disorder Sister ADD/ADHD Sister Cancer Paternal Grandfather Asthma Half-brother No Known Problems Half-brother No Known Problems Half-sister Anxiety disorder Half-sister No history of congenital anomalies. No history of bleeding/clotting disorders. Review of Systems: Negative other than as noted above. Virtual Physical Exam: Well-appearing and in NAD Conversing normally Assessment and Plan: 25 year old at 16w2d presenting for MFM consultation due to positive screening test for monosomy X and elevated NT on 1st trimester scan. We discussed the higher likelihood of true positivity of the screening test given the concurrent ultrasound finding, and we reviewed the normal ultrasound today. We reviewed that monosomy X, also called Wang syndrome, happens when a baby girl has only one working X chromosome instead of two. Some babies have this in all cells (45,X). Others have a mosaic pattern (a mix of cells with and without monosomy X). The condition can vary widely from mild to more noticeable features Because false positives are more common for monosomy X than for Down syndrome on cell free DNA screening (also called NIPT), we recommend considering diagnostic testing (amniocentesis) to confirm. We reviewed that if desired, these results can help patients make decisions about continuation or just provide certainty about the diagnosis. We then reviewed that some fetuses with Wang syndrome have findings like a thick nuchal fold, cystic hygroma (fluid-filled area at the back of the neck), swelling, heart differences (especially left-sided, like coarctation), kidney differences, or growth restriction. She has previously been counseled about the high risk of miscarriage. We also reviewed that the phenotype of Wang syndrome includes: short stature, ovarian insufficiency, possible cardiac or kidney differences (as above), and learning differences. There are a variety of medical treatments for short stature and ovarian insufficiency. As such, we recommend detailed anatomy scan at 20 weeks, echo at 22-24 weeks, and serial growth ultrasounds monthly throughout the . Amniocentesis is available should she desire it; otherwise, direct genetic testing can be done for the after . Summary of Recommendations: - Detailed anatomy at 20 weeks, echo 22-24 weeks - Serial growths every 4 weeks thereafter - Amniocentesis as per patient preference (she will MyChart either ma or Isaac Acosta); otherwise, genetic eval - Otherwise continue routine care Thank you for allowing us to participate in the care of this patient. Please do not hesitate to contact our office with any questions or concerns. This is a virtual visit. It required patient-provider interaction for the medical decision making as documented above. I spent a total of 60 minutes on the date of the service which included preparing to see the patient, [id number] patient care, completing clinical documentation, obtaining and/or reviewing separately obtained history, performing a medically appropriate examination, and counseling and educating the patient/family/caregiver. 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 She was accompanied to the visit today by her . PRESENTING PROBLEM: Nichol Mcelroy is currently 15w3d gestation (by LMP). First trimester anatomy ultrasound on 05/30/2025 at 13w4d gestation noted an increased NT measurement at 3.6mm. 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 Ms. Mcelroy presents today for genetic counselign to discuss this finding and to make a plan for next steps. She was initially seen for genetic counseling on 06/06/2025. Note: Ms. Mcelroy has a maternal cousin with with Wang syndrome that resulted in IUFD. REPRODUCTIVE HISTORY: Currently : Yes / 15w3d (by LMP) LMP: 02/24/2025 RUPINDER: 12/01/2025 history: 2022, FT, VD, female, [id number] 2. Current CVS: No Amniocentesis: No SIGNIFICANT PAST MEDICAL/SURGICAL HISTORIES: PAST MEDICAL HISTORY Diagnosis Date Anemia Anxiety Asthma (HCC) sport induced, off medication since 2010 Depression Depression Fracture of upper extremity Left arm History of maternal blood transfusion, currently (HCC) History of depression Orthostatic hypotension Personal history of nonsuicidal self-harm age 14, scars noted to left forearm FOB, currently age 27: Negative FAMILY HISTORY: A 3-generation pedigree was obtained for the patient and her partner and will be scanned into patient's EMR. Of note: - Genetic and/or Inherited Disease: Yes / Ms. Mcelroy's distant maternal cousin had a with Wang syndrome (IUFD). - Common Disorders: Yes / see pedigree - Defects: No - Recurrent Loss/Infertility: No - DD/Autism: No - : No - Other:No - Patient's ethnicity: NOS - Partner's ethnicity: Not asked - Patient and partner are NOT consanguineous The remainder of the known family history is negative for infertility, recurrent loss, stillbirth, unexplained , defects, malformation syndromes, chromosomal abnormalities, developmental delay, known or suspected genetic diseases, and consanguinity except as noted above and on the formal pedigree. GENETIC COUNSELING/DISCUSSION: We reviewed Ms. Mcelroy's screen positive cfDNA screen for Monosomy X/Wang syndrome. We reviewed cfDNA screening in general and that this is a screening test. We discussed the positive predictive value for Monosomy X which is 50-60%. Emphasized that the cfDNA is a screening testing, reviewed that given the increased nuchal translucency first trimester phenotype, concern raised that this may be a true positive. We reviewed the clinical features of Monosomy X. Variability of condition. Next we reviewed that cfDNA is a screening test and not diagnostic. We reviewed possibilities for the abnormal NIPT result: - True positive: True Monosomy X - Low level mosaicism for Monosomy X in the fetus. We briefly reviewed the definition of mosaicism and that the clinical outcome of this is difficult to predict. - False positive due to Confined placental mosaicism (CPM). We discussed CPM and how this occurs, potential implications. Reviewed risk for CPM for Monosomy X is approximately 59%. - False positive due to technical issue, vanishing twin , etc. - Maternal mosaicism for Monosomy X. Discussed available diagnostic testing options: Amniocentesis and genetic testing. Discussed the risks, benefits and limitations and timing. These include accuracy rates, risks of complications including miscarriage. Recommend 16w early anatomy ultrasound which Ms. Mcelroy currently has scheduled. Also recommend echocardiogram at 18-22w and maternal chromosome analysis with extra counts. Discussed each in detail and she wishes for all; questions answered throughout. Questions answered the best of my ability, support provided throughout. SUGGESTIONS/PLAN: Recommend early anatomy ultrasound at 16w which she has currently scheduled for 06/18/2025. Ms. Mcelroy declines amniocentesis at this time and elects for genetic testing. Please hold cord blood - one green top and one purple top tube. Recommend echocardiogram at 18-22w gestation. Recommend maternal chromosome analysis with mosaic protocol. Ms. Mcelroy wishes for this. Order placed. Follow-up as clinically indicated based on ultrasound today. Thank you for allowing me to participate in Nichol Mcelroy 's care. Please feel free to contact me if either you or the family has questions, or concerns. I spent a total of 50 minutes on the date of the service, which included preparing to see the patient, [id number] patient care, completing clinical documentation, obtaining and/or reviewing separately obtained history, counseling and educating the patient/family/caregiver, ordering tests, communicating with other HCPs (not separately reported), independently interpreting results (not separately reported), communicating results to the patient/family/caregiver, and care coordination (not separately reported). This plan is being carried out under the oversight of Dr. Loretta Burgos. This note will also be sent to the referring provider via the electronic medical record. Isaac Acosta MS, [facility] [place] Licensed, Certified Genetic Counselor documented in this encounter [facility] 06-12-2025 Note HNO ID: [id number] Author: ISAAC ACOSTA LGC Service: ? 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 She was accompanied to the visit today by her . PRESENTING PROBLEM: Nihcol Mcelroy is currently 15w3d gestation (by LMP). First trimester anatomy ultrasound on 05/30/2025 at 13w4d gestation noted an increased NT measurement at 3.6mm. 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 Ms. Mcelroy presents today for genetic counselign to discuss this finding and to make a plan for next steps. She was initially seen for genetic counseling on 06/06/2025. Note: Ms. Mcelroy has a maternal cousin with with Wang syndrome that resulted in IUFD. REPRODUCTIVE HISTORY: Currently : Yes / 15w3d (by LMP) LMP: 02/24/2025 RUPINDER: 12/01/2025 history: 2022, FT, VD, female, [id number] 2. Current CVS: No Amniocentesis: No SIGNIFICANT PAST MEDICAL/SURGICAL HISTORIES: PAST MEDICAL HISTORY Diagnosis Date Anemia Anxiety Asthma (HCC) sport induced, off medication since 2010 Depression Depression Fracture of upper extremity Left arm History of maternal blood transfusion, currently (HCC) History of depression Orthostatic hypotension Personal history of nonsuicidal self-harm age 14, scars noted to left forearm FOB, currently age 27: Negative FAMILY HISTORY: A 3-generation pedigree was obtained for the patient and her partner and will be scanned into patient's EMR. Of note: - Genetic and/or Inherited Disease: Yes / Ms. Mcelroy's distant maternal cousin had a with Wagn syndrome (IUFD). - Common Disorders: Yes / see pedigree - Defects: No - Recurrent Loss/Infertility: No - DD/Autism: No - : No - Other:No - Patient's ethnicity: NOS - Partner's ethnicity: Not asked - Patient and partner are NOT consanguineous The remainder of the known family history is negative for infertility, recurrent loss, stillbirth, unexplained , defects, malformation syndromes, chromosomal abnormalities, developmental delay, known or suspected genetic diseases, and consanguinity except as noted above and on the formal pedigree. GENETIC COUNSELING/DISCUSSION: We reviewed Ms. Mcelroy's screen positive cfDNA screen for Monosomy X/Wang syndrome. We reviewed cfDNA screening in general and that this is a screening test. We discussed the positive predictive value for Monosomy X which is 50-60%. Emphasized that the cfDNA is a screening testing, reviewed that given the increased nuchal translucency first trimester phenotype, concern raised that this may be a true positive. We reviewed the clinical features of Monosomy X. Variability of condition. Next we reviewed that cfDNA is a screening test and not diagnostic. We reviewed possibilities for the abnormal NIPT result: - True positive: True Monosomy X - Low level mosaicism for Monosomy X in the fetus. We briefly reviewed the definition of mosaicism and that the clinical outcome of this is difficult to predict. - False positive due to Confined placental mosaicism (CPM). We discussed CPM and how this occurs, potential implications. Reviewed risk for CPM for Monosomy X is approximately 59%. - False positive due to technical issue, vanishing twin , etc. - Maternal mosaicism for Monosomy X. Discussed available diagnostic testing options: Amniocentesis and genetic testing. Discussed the risks, benefits and limitations and timing. These include accuracy rates, risks of complications including miscarriage. Recommend 16w early anatomy ultrasound which Ms. Mcelroy currently has scheduled. Also recommend echocardiogram at 18-22w and maternal chromosome analysis with extra counts. Discussed each in detail and she wishes for all; questions answered throughout. Questions answered the best of my ability, support provided throughout. SUGGESTIONS/PLAN: Recommend early anatomy ultrasound at 16w which she has currently scheduled for 06/18/2025. Ms. Mcelory declines amniocentesis at this time and elects for genetic testing. Please hold cord blood - one green top and one purple top tube. Recommend echocardiogram at 18-22w gestation. Recommend maternal chromosome analysis with mosaic protocol. Ms. Mcelroy wishes for this. Order placed. Follow-up as clinically indicated base (more content not included)... [facility] 06-10-2025 Telephone encounter Note Called Nichol Mcelroy and we reviewed her cfDNA screen which is screen positive for Wang syndrome/Monosomy X. We reviewed this result, clinical features of Wang syndrome, variability in presentation, approximate 99% risk for miscarriage. Reviewed that cfDNA is a screening test, not a diagnostic test however, given the phenotype of increased nuchal translucency, it is concerning to be a true positive. Diagnostic testing is still reccommended though. Offered a follow-up genetic counseling consultation to discuss this result and to make a follow-up plan. Ms. Mcelroy wishes for this. Scheduled for 06/12/2025 at 1:00 in person. Plan agreed upon. Questions answered. Encouraged her to call and/or message in the interim should she have additional questions, concerns, etc., to which she agreed. Support provided. TERRENCE Edwards [facility] Work Phone: 06-10-2025 Miscellaneous Notes Called Nichol Mcelroy and we reviewed her cfDNA screen which is screen positive for Wang syndrome/Monosomy X. We reviewed this result, clinical features of Wang syndrome, variability in presentation, approximate 99% risk for miscarriage. Reviewed that cfDNA is a screening test, not a diagnostic test however, given the phenotype of increased nuchal translucency, it is concerning to be a true positive. Diagnostic testing is still reccommended though. Offered a follow-up genetic counseling consultation to discuss this result and to make a follow-up plan. Ms. Mcelroy wishes for this. Scheduled for 06/12/2025 at 1:00 in person. Plan agreed upon. Questions answered. Encouraged her to call and/or message in the interim should she have additional questions, concerns, etc., to which she agreed. Support provided. TERRENCE Edwards documented in this encounter [facility] 06-06-2025 History of Present illness Narrative REPRODUCTIVE GENETIC COUNSELING INITIAL VISIT Nichol Mcelroy : 2000 Above identifiers confirmed by Isaac Acosta, TERRENCE WARD Consultation requested by: Dr. 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 Nikki Zheng for genetic counseling to discuss her increased NT on ultrasound. She was accompanied to the visit today by her grandmother. PRESENTING PROBLEM: Nichol Mcelroy is currently 14w4d gestation (by LMP). First trimester anatomy ultrasound on 05/30/2025 at 13w4d gestation noted an increased NT measurement at 3.6mm. Ms. Mcelroy has cfDNA screening for Trisomies 13, 18, 21 and sex chromosome aneuploidies ('[id number]') pending. Ms. Mcelroy presents for genetic counseling to discuss this finding and to make a plan for next steps. REPRODUCTIVE HISTORY: Currently : Yes / 14w4d (by LMP) LMP: 02/24/2025 RUPINDER: 12/01/2025 history: 2022, FT, VD, female, [id number] 2. Current exposures: - vitamins or other folate supplementation: No - Prescription medicines: No - OTC medicines, herbal medicines, other supplements: No - Tobacco, alcohol, or illicit drugs: No - Maternal infections or fevers: No - Other known/suspected human teratogens: No CVS: No Amniocentesis: No SIGNIFICANT PAST MEDICAL/SURGICAL HISTORIES: PAST MEDICAL HISTORY Diagnosis Date Anemia Anxiety Asthma (HCC) sport induced, off medication since 2010 Depression Depression Fracture of upper extremity Left arm History of maternal blood transfusion, currently (HCC) History of depression Orthostatic hypotension Personal history of nonsuicidal self-harm age 14, scars noted to left forearm FOB, currently age 27: Negative FAMILY HISTORY: A 3-generation pedigree was obtained for the patient and her partner and will be scanned into patient's EMR. Of note: - Genetic and/or Inherited Disease: Yes / Ms. Mcelroy's distant maternal cousin had a with Wang syndrome (IUFD). - Common Disorders: Yes / see pedigree - Defects: No - Recurrent Loss/Infertility: No - DD/Autism: No - : No - Other:No - Patient's ethnicity: NOS - Partner's ethnicity: Not asked - Patient and partner are NOT consanguineous The remainder of the known family history is negative for infertility, recurrent loss, stillbirth, unexplained , defects, malformation syndromes, chromosomal abnormalities, developmental delay, known or suspected genetic diseases, and consanguinity except as noted above and on the formal pedigree. GENETIC COUNSELING/DISCUSSION: Nichol Mcelroy underwent nuchal translucency (NT) measurement which indicated an increased NT with measurement of 3.6mm. We reviewed the possible implications of this finding: chromosome abnormality, specific defects, genetic syndromes, etc. An explanation of chromosomes and chromosome conditions was given. increased NT is a 'red flag' for chromosome aneuploidy, with trisomy 21, trisomy 13, trisomy 18 and Wnag Syndrome being the most common types of chromosome aneuploidies. We discussed the clinical features of each of these conditions. Also discussed copy number variation and possibility of single gene conditions as well - long genetic differential. Reviewed her pending cfDNA screen for Trisomies 13, 18, 21 and sex chromosome aneuploidies. Discussed sensitivity of this screen and that it is a screening test. Reviewed that I will keep an eye out for the results. We discussed the risks, benefits and limitations of diagnostic testing through Amniocentesis. These include accuracy rates, risk for mosaicism, risks of complications including miscarriage and gestational age availability. Reviewed genetic testing available via Amniocentesis: Insight: karyotype, SNParray and hold cells for possible additional testing based on phenotype. Reviewed possibilities for results (categories) and order of testing. We then discussed other etiologies for an increased NT: specific defects such as congenital heart defects. Because of this, an early anatomy ultrasound at 16w gestation with follow-up recommended by [facility] and a echocardiogram is suggested at 18-22 weeks gestation. Patient wishes for this. SUGGESTIONS/PLAN: Nichol Mcelroy is a female, currently 14w4d gestation with ultrasound finding of 3.6mm NT measurement (see ultrasound report). 1. cfDNA screening for Trisomies 13, 18, 21 and sex chromosome aneuploidies ('[id number]') is pending. Will keep an eye out for this result and call patient if see that results are available. She wishes to consider diagnosis amniocentesis dependent on these results. 2. Offered 16 week early anatomy ultrasound. Patient wishes for this. Currently scheduled for 06/18/2025 3. Recommend 18-20 week detailed anatomy ultrasound. This will be scheduled following above. 4. Recommend echocardiogram at 18-22 weeks gestation. This will be scheduled following above. 5. Follow-up as clinically indicated. Thank you for allowing me to participate in Nichol Mcelroy 's care. Please feel free to contact me if either you or the family has questions, or concerns. I spent a total of 60 minutes on the date of the service, which included preparing to see the patient, [id number] patient care, completing clinical documentation, obtaining and/or reviewing separately obtained history, counseling and educating the patient/family/caregiver, ordering tests, communicating with other HCPs (not separately reported), independently interpreting results (not separately reported), communicating results to the patient/family/caregiver, and care coordination (not separately reported). This plan is being carried out under the oversight of Dr. Loretta Burgos. This note will also be sent to the referring provider via the electronic medical record. Isaac Acosta MS, [facility] [place] Licensed, Certified Genetic Counselor documented in this encounter [facility] 06-06-2025 Note HNO ID: [id number] Author: ISAAC ACOSTA LGC Service: ? Author Type: Genetic Counselor Type: Progress Notes Filed: 08/22/2025 13:59 Note Text: REPRODUCTIVE GENETIC COUNSELING INITIAL VISIT Nichol Mcelroy : 2000 Above identifiers confirmed by Isaac Acosta MS, LGC Consultation requested by: Dr. 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 Nikki Zheng for genetic counseling to discuss her increased NT on ultrasound. She was accompanied to the visit today by her grandmother. PRESENTING PROBLEM: Nichol Mcelroy is currently 14w4d gestation (by LMP). First trimester anatomy ultrasound on 05/30/2025 at 13w4d gestation noted an increased NT measurement at 3.6mm. Ms. Mcelroy has cfDNA screening for Trisomies 13, 18, 21 and sex chromosome aneuploidies ('[id number]') pending. Ms. Mcelroy presents for genetic counseling to discuss this finding and to make a plan for next steps. REPRODUCTIVE HISTORY: Currently : Yes / 14w4d (by LMP) LMP: 02/24/2025 RUPINDER: 12/01/2025 history: 2022, FT, VD, female, [id number] 2. Current exposures: - vitamins or other folate supplementation: No - Prescription medicines: No - OTC medicines, herbal medicines, other supplements: No - Tobacco, alcohol, or illicit drugs: No - Maternal infections or fevers: No - Other known/suspected human teratogens: No CVS: No Amniocentesis: No SIGNIFICANT PAST MEDICAL/SURGICAL HISTORIES: PAST MEDICAL HISTORY Diagnosis Date Anemia Anxiety Asthma (HCC) sport induced, off medication since 2010 Depression Depression Fracture of upper extremity Left arm History of maternal blood transfusion, currently (HCC) History of depression Orthostatic hypotension Personal history of nonsuicidal self-harm age 14, scars noted to left forearm FOB, currently age 27: Negative FAMILY HISTORY: A 3-generation pedigree was obtained for the patient and her partner and will be scanned into patient's EMR. Of note: - Genetic and/or Inherited Disease: Yes / Ms. Mcelroy's distant maternal cousin had a with Wang syndrome (IUFD). - Common Disorders: Yes / see pedigree - Defects: No - Recurrent Loss/Infertility: No - DD/Autism: No - : No - Other:No - Patient's ethnicity: NOS - Partner's ethnicity: Not asked - Patient and partner are NOT consanguineous The remainder of the known family history is negative for infertility, recurrent loss, stillbirth, unexplained infant , defects, malformation syndromes, chromosomal abnormalities, developmental delay, known or suspected genetic diseases, and consanguinity except as noted above and on the formal pedigree. GENETIC COUNSELING/DISCUSSION: Nichol Mcelroy underwent nuchal translucency (NT) measurement which indicated an increased NT with measurement of 3.6mm. We reviewed the possible implications of this finding: chromosome abnormality, specific defects, genetic syndromes, etc. An explanation of chromosomes and chromosome conditions was given. increased NT is a 'red flag' for chromosome aneuploidy, with trisomy 21, trisomy 13, trisomy 18 and Wang Syndrome being the most common types of chromosome aneuploidies. We discussed the clinical features of each of these conditions. Also discussed copy number variation and possibility of single gene conditions as well - long genetic differential. Reviewed her pending cfDNA screen for Trisomies 13, 18, 21 and sex chromosome aneuploidies. Discussed sensitivity of this screen and that it is a screening test. Reviewed that I will keep an eye out for the results. We discussed the risks, benefits and limitations of diagnostic testing through Amniocentesis. These include accuracy rates, risk for mosaicism, risks of complications including miscarriage and gestational age availability. Reviewed genetic testing available via Amniocentesis: Insight: karyotype, SNParray and hold cells for possible additional testing based on phenotype. Reviewed possibilities for results (categories) and order of testing. We then discussed other etiologies for an increased NT: specific defects such as congenital heart defects. Because of this, an early anatomy ultrasound at 16w gestation with follow-up recommended by M and a echocardiogram is suggested at 18-22 weeks gestation. Patient wishes for this. SUGGESTIONS/PLAN: Nichol Mcelroy is a female, currently 14w4d gestation with ultrasound finding of 3.6mm NT measurement (see ultrasound report). 1. cfDNA screening for Trisomies 13, 18, 21 and sex chromosome aneuploidies ('[id number]') is pending. Will keep an eye out for this result and call pat (more content not included)... [facility] 05-31-2025 Telephone encounter Note Called Pt-notified Pt that she is scheduled on 06/18/25 for US, MFM, OB appt. Call then got disconnected. [employer] message sent to Pt. Antonieta Roy RN [facility] 05-31-2025 Miscellaneous Notes Called Pt-notified Pt that she is scheduled on 06/18/25 for US, MFM, OB appt. Call then got disconnected. [employer] message sent to Pt. Antonieta Roy RN [facility] contacted patient and schedule her with a GC on 06/06/25. Please have her schedule with genetics counseling AMY. This should ideally be completed prior to her 16wk early anatomy and MFM consult. Lino Kumar MD 13w5d Pt saw KJ 05/30/25. Pt called re: Genetics referral and asking how to go about getting scheduled. While explaining, call got disconnected. Tried calling Pt back x2 and was unable to hear patient and call got disconnected again. Per Dr Zheng read on US 05/30/25: Nuchal fold thickening on ultrasound - Recommend genetic counseling - A standard anatomic survey at 16 weeks and a detailed exam at 20 weeks is recommended for increased risk. Do you want Pt to have US at 16 weeks & 20 weeks? If so-16 week US order pending, please file. Pt had asked about a specialist Dr.-Is Pt to see MFM as well? Please advise. Antonieta Roy RN documented in this encounter [facility] 05-31-2025 Telephone encounter Note PSS contacted patient and schedule her with a GC on 06/06/25. [facility] 05-31-2025 Telephone encounter Note Please have her schedule with genetics counseling AMY. This should ideally be completed prior to her 16wk early anatomy and MFM consult. Lino Kumar MD [facility] 05-31-2025 Telephone encounter Note 13w5d Pt saw ZAY 05/30/25. Pt called re: Genetics referral and asking how to go about getting scheduled. While explaining, call got disconnected. Tried calling Pt back x2 and was unable to hear patient and call got disconnected again. Per Dr Zheng read on US 05/30/25: Nuchal fold thickening on ultrasound - Recommend genetic counseling - A standard anatomic survey at 16 weeks and a detailed exam at 20 weeks is recommended for increased risk. Do you want Pt to have US at 16 weeks & 20 weeks? If so-16 week US order pending, please file. Pt had asked about a specialist Dr.-Is Pt to see MFM as well? Please advise. Antonieta Roy RN [facility] 05-30-2025 Progress note Formatting of t his note might be different from the original. KJ - S: Nichol denies LOF, contractions or vaginal bleeding. O: 13w4d, see flow sheet SENSITIVE EXAM: Sensitive exam not performed. A/P: Assessment & Plan 13 weeks gestation of (HCC) Orders: [id number] PLUS; Future Encounter for supervision of normal in multigravida in first trimester (HCC) Nuchal fold thickening on ultrasound Orders: CONSULT TO MEDICAL GENETICS - ; Future [id number] PLUS; Future Lino Kumar MD [facility] 05-30-2025 Miscellaneous Notes KJ - S: Nichol denies LOF, contractions or vaginal bleeding. O: 13w4d, see flow sheet SENSITIVE EXAM: Sensitive exam not performed. A/P: Assessment & Plan 13 weeks gestation of (HCC) Orders: [id number] PLUS; Future Encounter for supervision of normal in multigravida in first trimester (HCC) Nuchal fold thickening on ultrasound Orders: CONSULT TO MEDICAL GENETICS - ; Future [id number] PLUS; Future Lino Kumar MD documented in this encounter [facility] 05-30-2025 Instructions Sun Walters MA - 05/30/2025 1:39 PM EDT SEQUENTIAL SCREENINGS The [facility] offers sequential screenings for women who are interested in screenings for chromosomal abnormalities and certain defects during a . The sequential screen combines ultrasound and blood tests to determine the risk of chromosomal abnormalities, including Down's Syndrome (Trisomy 21) and Trisomy 18, as well as open neural tube defects including spina bifida. Ultrasound examination is performed between 11 weeks and 13 weeks gestational age. Blood tests are drawn after the ultrasound and again later in the between 15 and 21 weeks gestational age. Please let your physician know if you are interested in this testing. It will require an appointment with our dialysis technician. This is not an ultrasound performed by a physician in our office during a routine visit. SIGNS AND SYMPTOMS OF LABOR 1. Contractions every 10 minutes or more often 2. Clear, pink, or brownish fluid (water) leaking from vagina 3. Feeling that baby is pushing down, pressure 4. Low, dull backache 5. Cramps that feel like a period 6. Cramps with or without diarrhea If you notice any of the above symptoms, contact our office at [phone] and ask to speak with a nurse. After hours, you can call doctors registry at [phone] OR call [facility] at [phone] and ask to have the doctor production control specialist paged. If you consider this an emergency, dial 9-7 or go to your nearest emergency department. NEED HELP? Are you dealing with a violent or abusive relationship? Are you a victim of rape or sexual assult? Call [facility] [place] [facility] 24 hour Crisis Hotline: 470.992.1331 or 569-914-6643. MANUAL Your Guide to a Healthy manual is now on-line. Visit [email or web address] to download your free copy documented in this encounter [facility] 04-19-2025 Telephone encounter Note 1st risk assessment form submitted 04/19/25 Americo Greer RN [facility] 04-19-2025 Miscellaneous Notes 1st risk assessment form submitted 04/19/25 Americo Greer RN documented in this encounter [facility] 04-18-2025 Progress note Formatting of t his note might be different from the original. Patient is here for NOB. See progress note. Chula Locektt APRN.CNM [facility] 04-18-2025 Miscellaneous Notes Patient is here for NOB. See progress note. Chula Lockett APRN.CNM documented in this encounter [facility] 04-18-2025 History of Present illness Narrative OB point of care ultrasound was performed. See imaging tab for details. Julio Cesar Hensley MA INITIAL OB ASSESSMENT HPI: Nichol is a 25 year old White here to establish Obstetrical Care. Patient's last menstrual period was 02/24/2025. from OB Dating Form. was unplanned but accepted Complaints: No OB History Gravida2 Para1 Term1 Preterm0 AB0 Living1 SAB0 IAB0 Ectopic0 Multiple0 Live Births1 Previous history: Prior : No History of 4th degree laceration: No History of shoulder dystocia: No History of Hypertensive disorders including pre-eclampsia or gestational hypertension: No History of gestational diabetes: No Patient's Risk Screening for delivery: Have you had a prior conklin between 20w and 36w6d? No Did you present in active spontaneous labor or have ruptured membranes, or advanced cervical dilation (greater than or equal to 4 cm) or effacement? No How many pregnancies have you had before? 1 Did you have a previous baby with a GBS Infection? No Please select all that apply for any prior : N/A MEDICAL/PSYCHOSOCIAL HISTORY: History of hemorrhage or bleeding concerns: No Thyroid Disease: No History of chronic hypertension: No History of pre-existing diabetes: No No results found for: ABORHD No weight on file for this encounter. Last Pap: 08/13/2022 History of abnormal pap: No Prior treatment for cervical dysplasia: none. Last HPV: History of STDs: None Partner History of STDs: None Did you have a partner with Herpes? No Tobacco use: No E-Cigarette/Vaping Use: No Caffeine use: Yes - coffee Drug use: No Alcohol use: No Multivitamin with Folic acid: Yes Would refuse blood transfusion if medically necessary: No - has been making her sick Social Needs: How often does this describe you? I don't have enough money to pay my bills: Never Within the past 12 months, have you worried that your food would run out before you had money to buy more? Never In the past 12 months, has lack of reliable transportation kept you from going to medical appointments or work, or from getting things needed for daily living? Never In the past 12 months, have you had any concerns about having a place to live, or about the condition or quality of your housing? Never Would you like more information on any of the following (please check all that apply)? Manager Performance Improvement care Social History: Do you have any history of depression, anxiety, PTSD, or other mood problems? Yes Do you have a history of abuse or trauma that may impact your experience? 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 OB Depression and Anxiety Screening- This Encounter Feeling down, depressed, or hopeless: Not at all Little interest or pleasure in doing things: Not at all Feeling nervous, anxious, or on edge Not at all Not being able to stop or control worrying Not at all Anxiety Pre-Screening Total (If >/= 3 additional questions will be reviewed) 0 Genetic Screening: Partner present: No Patient verbalized knowledge of partner family health history: Yes Do you or your partner have any personal or family history of defects not previously discussed: No Do you have history of a complicated by anomaly, genetic condition, or demise: No Preeclampsia Risk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 female who presents to the emergency department with a chief complaint of vomiting and diarrhea. Patient states that yesterday evening she developed nausea, vomiting and diarrhea. Patient states that her significant other along with her daughter have had the same symptoms. She states that she feels dehydrated. She reports generalized bodyaches. No fever. She states she took oral zofran with no relief Review of Systems Constitutional: Negative for chills and fever. HENT: Negative for ear pain and sore throat. Eyes: Negative for pain and visual disturbance. Respiratory: Negative for cough and shortness of breath. Cardiovascular: Negative for chest pain and palpitations. Gastrointestinal: Positive for diarrhea, nausea and vomiting. Negative for abdominal pain. Genitourinary: Negative for difficulty urinating, dysuria, hematuria and pelvic pain. Musculoskeletal: Negative for arthralgias and back pain. Skin: Negative for color change and rash. Neurological: Negative for seizures and syncope. All other systems reviewed and are negative. Physical Exam Vitals and nursing note reviewed. Constitutional: General: She is not in acute distress. Appearance: Normal appearance. She is well-developed. HENT: Head: Normocephalic and atraumatic. Nose: No congestion or rhinorrhea. Eyes: Extraocular Movements: Extraocular movements intact. Conjunctiva/sclera: Conjunctivae normal. Cardiovascular: Rate and Rhythm: Normal rate and regular rhythm. Heart sounds: No murmur heard. Pulmonary: Effort: Pulmonary effort is normal. No respiratory distress. Breath sounds: Normal breath sounds. Abdominal: General: There is no distension. Palpations: Abdomen is soft. There is no mass. Tenderness: There is no abdominal tenderness. There is no guarding or rebound. Hernia: No hernia is present. Musculoskeletal: General: No swelling. Cervical back: Normal range of motion and neck supple. No rigidity. Skin: General: Skin is warm and dry. Capillary Refill: Capillary refill takes less than 2 seconds. Neurological: General: No focal deficit present. Mental Status: She is alert. Psychiatric: Mood and Affect: Mood normal. Labs Reviewed CBC WITH AUTO DIFFERENTIAL - Abnormal Result Value WBC 8.5 nRBC 0.0 RBC 4.48 Hemoglobin 13.7 Hematocrit 40.6 MCV 91 MCH 30.6 MCHC 33.7 RDW 12.5 Platelets 173 Neutrophils % 89.6 Immature Granulocytes %, Automated 0.1 Lymphocytes % 5.4 Monocytes % 4.7 Eosinophils % 0.1 Basophils % 0.1 Neutrophils Absolute 7.65 Immature Granulocytes Absolute, Automated 0.01 Lymphocytes Absolute 0.46 (*) Monocytes Absolute 0.40 Eosinophils Absolute 0.01 Basophils Absolute 0.01 BASIC METABOLIC PANEL - Abnormal Glucose 107 (*) Sodium 136 Potassium 3.8 Chloride 106 Bicarbonate 19 (*) Anion Gap 15 Urea Nitrogen 22 Creatinine 0.84 eGFR >90 Calcium 9.0 HEPATIC FUNCTION PANEL - Abnormal Albumin 4.5 Bilirubin, Total 1.5 (*) Bilirubin, Direct 0.2 Alkaline Phosphatase 57 ALT 7 AST 13 Total Protein 7.0 LIPASE - Abnormal Lipase 8 (*) Narrative: Venipuncture immediately after or during the administration of Metamizole may lead to falsely low results. Testing should be performed immediately prior to Metamizole dosing. URINALYSIS WITH REFLEX CULTURE AND MICROSCOPIC - Abnormal Color, Urine Yellow Appearance, Urine Hazy (*) Specific Lamont, Urine 1.032 pH, Urine 7.0 Protein, Urine 100 (2+) (*) Glucose, Urine NEGATIVE Blood, Urine NEGATIVE Ketones, Urine 80 (2+) (*) Bilirubin, Urine NEGATIVE Urobilinogen, Urine 4.0 (*) Nitrite, Urine NEGATIVE Leukocyte Esterase, Urine NEGATIVE URINALYSIS MICROSCOPIC WITH REFLEX CULTURE - Abnormal WBC, Urine 6-10 (*) RBC, Urine 1-2 Squamous Epithelial Cells, Urine 1-9 (SPARSE) Bacteria, Urine 2+ (*) Mucus, Urine 1+ Hyaline Casts, Urine OCCASIONAL (*) HCG, URINE, QUALITATIVE - Normal HCG, Urine NEGATIVE SARS-COV-2 AND INFLUENZA A/B PCR - Normal Flu A Result Not Detected Flu B Result Not Detected Coronavirus 2018, PCR Not Detected Narrative: This assay has received FDA Emergency Use Authorization (EUA) and is only authorized for the duration of time that circumstances exist to justify the authorization of the emergency use of in vitro diagnostic tests for the detection of SARS-CoV-2 virus and/or diagnosis of COVID-19 infection under section 564(b)(1) of the Act, 21 U.S.C. 360bbb-3(b)(1). Testing for SARS-CoV-2 is only recommended for patients who meet current clinical and/or epidemiological criteria as defined by federal, state, or local public health directives. This assay is an in vitro diagnostic nucleic acid amplification test for the qualitative detection of SARS-CoV-2, Influenza A, and Influenza B from nasopharyngeal specimens and has been validated for use at [facility]. Negative results do not preclude COVID-19 infections or Influenza A/B infections, and should not be used as the sole basis for diagnosis, treatment, or other management decisions. If Influenza A/B and RSV PCR results are negative, testing for Parainfluenza virus, Adenovirus and Metapneumovirus is routinely performed for [facility] pediatric oncology and intensive care inpatients, and is available on other patients by placing an add-on request. URINE CULTURE URINALYSIS WITH REFLEX CULTURE AND MICROSCOPIC Narrative: The following orders were created for panel order Urinalysis with Reflex Culture and Microscopic. Procedure Abnormality Status --------- ------ Urinalysis with Reflex C...[[id number]] Abnormal Final result Extra Urine De Los Santos Tube[[id number]] In process Please view results for these tests on the individual orders. EXTRA URINE DE [place] SANTOS TUBE No orders to display Procedures Medical Decision Making Patient is a 23-year-old female who presents to the emergency department with a chief complaint of nausea, vomiting and diarrhea. Multiple family members have similar symptoms. Patient's abdomen is soft and nontender. Patient's labs are consistent with mild dehydration. She was given IV fluids and antiemetics and reports that she is feeling much better. Patient will be discharged home with recommended follow-up with PCP and return for any new or worsening symptoms. Differential diagnosis includes but not limited to nausea vomiting diarrhea, viral gastroenteritis, viral illness, COVID, influenza, acute abdominal pathology Amount and/or Complexity of Data Reviewed Labs: ordered. Decision-making details documented in ED Course. Risk Prescription drug management. Diagnoses as of 01/13/24 1640 Vomiting and diarrhea Dehydration Shivani Dixon PA-C 01/13/24 1641 documented in this encounter [facility] Work Phone: 01-13-2024 Physician Emergency department Note Patient is a 23-year-old female who presents to the emergency department with a chief complaint of vomiting and diarrhea. Patient states that yesterday evening she developed nausea, vomiting and diarrhea. Patient states that her significant other along with her daughter have had the same symptoms. She states that she feels dehydrated. She reports generalized bodyaches. No fever. She states she took oral zofran with no relief Review of Systems Constitutional: Negative for chills and fever. HENT: Negative for ear pain and sore throat. Eyes: Negative for pain and visual disturbance. Respiratory: Negative for cough and shortness of breath. Cardiovascular: Negative for chest pain and palpitations. Gastrointestinal: Positive for diarrhea, nausea and vomiting. Negative for abdominal pain. Genitourinary: Negative for difficulty urinating, dysuria, hematuria and pelvic pain. Musculoskeletal: Negative for arthralgias and back pain. Skin: Negative for color change and rash. Neurological: Negative for seizures and syncope. All other systems reviewed and are negative. Physical Exam Vitals and nursing note reviewed. Constitutional: General: She is not in acute distress. Appearance: Normal appearance. She is well-developed. HENT: Head: Normocephalic and atraumatic. Nose: No congestion or rhinorrhea. Eyes: Extraocular Movements: Extraocular movements intact. Conjunctiva/sclera: Conjunctivae normal. Cardiovascular: Rate and Rhythm: Normal rate and regular rhythm. Heart sounds: No murmur heard. Pulmonary: Effort: Pulmonary effort is normal. No respiratory distress. Breath sounds: Normal breath sounds. Abdominal: General: There is no distension. Palpations: Abdomen is soft. There is no mass. Tenderness: There is no abdominal tenderness. There is no guarding or rebound. Hernia: No hernia is present. Musculoskeletal: General: No swelling. Cervical back: Normal range of motion and neck supple. No rigidity. Skin: General: Skin is warm and dry. Capillary Refill: Capillary refill takes less than 2 seconds. Neurological: General: No focal deficit present. Mental Status: She is alert. Psychiatric: Mood and Affect: Mood normal. Labs Reviewed CBC WITH AUTO DIFFERENTIAL - Abnormal Result Value WBC 8.5 nRBC 0.0 RBC 4.48 Hemoglobin 13.7 Hematocrit 40.6 MCV 91 MCH 30.6 MCHC 33.7 RDW 12.5 Platelets 173 Neutrophils % 89.6 Immature Granulocytes %, Automated 0.1 Lymphocytes % 5.4 Monocytes % 4.7 Eosinophils % 0.1 Basophils % 0.1 Neutrophils Absolute 7.65 Immature Granulocytes Absolute, Automated 0.01 Lymphocytes Absolute 0.46 (*) Monocytes Absolute 0.40 Eosinophils Absolute 0.01 Basophils Absolute 0.01 BASIC METABOLIC PANEL - Abnormal Glucose 107 (*) Sodium 136 Potassium 3.8 Chloride 106 Bicarbonate 19 (*) Anion Gap 15 Urea Nitrogen 22 Creatinine 0.84 eGFR >90 Calcium 9.0 HEPATIC FUNCTION PANEL - Abnormal Albumin 4.5 Bilirubin, Total 1.5 (*) Bilirubin, Direct 0.2 Alkaline Phosphatase 57 ALT 7 AST 13 Total Protein 7.0 LIPASE - Abnormal Lipase 8 (*) Narrative: Venipuncture immediately after or during the administration of Metamizole may lead to falsely low results. Testing should be performed immediately prior to Metamizole dosing. URINALYSIS WITH REFLEX CULTURE AND MICROSCOPIC - Abnormal Color, Urine Yellow Appearance, Urine Hazy (*) Specific Lam[place], Urine 1.032 pH, Urine 7.0 Protein, Urine 100 (2+) (*) Glucose, Urine NEGATIVE Blood, Urine NEGATIVE Ketones, Urine 80 (2+) (*) Bilirubin, Urine NEGATIVE Urobilinogen, Urine 4.0 (*) Nitrite, Urine NEGATIVE Leukocyte Esterase, Urine NEGATIVE URINALYSIS MICROSCOPIC WITH REFLEX CULTURE - Abnormal WBC, Urine 6-10 (*) RBC, Urine 1-2 Squamous Epithelial Cells, Urine 1-9 (SPARSE) Bacteria, Urine 2+ (*) Mucus, Urine 1+ Hyaline Casts, Urine OCCASIONAL (*) HCG, URINE, QUALITATIVE - Normal HCG, Urine NEGATIVE SARS-COV-2 AND INFLUENZA A/B PCR - Normal Flu A Result Not Detected Flu B Result Not Detected Coronavirus 2019, PCR Not Detected Narrative: This assay has received FDA Emergency Use Authorization (EUA) and is only authorized for the duration of time that circumstances exist to justify the authorization of the emergency use of in vitro diagnostic tests for the detection of SARS-CoV-2 virus and/or diagnosis of COVID-19 infection under section 564(b)(1) of the Act, 21 U.S.C. 360bbb-3(b)(1). Testing for SARS-CoV-2 is only recommended for patients who meet current clinical and/or epidemiological criteria as defined by federal, state, or local public health directives. This assay is an in vitro diagnostic nucleic acid amplification test for the qualitative detection of SARS-CoV-2, Influenza A, and Influenza B from nasopharyngeal specimens and has been validated for use at [facility]. Negative results do not preclude COVID-19 infections or Influenza A/B infections, and should not be used as the sole basis for diagnosis, treatment, or other management decisions. If Influenza A/B and RSV PCR results are negative, testing for Parainfluenza virus, Adenovirus and Metapneumovirus is routinely performed for [facility] pediatric oncology and intensive care inpatients, and is available on other patients by placing an add-on request. URINE CULTURE URINALYSIS WITH REFLEX CULTURE AND MICROSCOPIC Narrative: The following orders were created for panel order Urinalysis with Reflex Culture and Microscopic. Procedure Abnormality Status --------- ------ Urinalysis with Reflex C...[[id number]] Abnormal Final result Extra Urine De Los Santos Tube[[id number]] In process Please view results for these tests on the individual orders. EXTRA URINE DE [place] SANTOS TUBE No orders to display Procedures Medical Decision Making Patient is a 23-year-old female who presents to the emergency department with a chief complaint of nausea, vomiting and diarrhea. Multiple family members have similar symptoms. Patient's abdomen is soft and nontender. Patient's labs are consistent with mild dehydration. She was given IV fluids and antiemetics and reports that she is feeling much better. Patient will be discharged home with recommended follow-up with PCP and return for any new or worsening symptoms. Differential diagnosis includes but not limited to nausea vomiting diarrhea, viral gastroenteritis, viral illness, COVID, influenza, acute abdominal pathology Amount and/or Complexity of Data Reviewed Labs: ordered. Decision-making details documented in ED Course. Risk Prescription drug management. Diagnoses as of 01/13/24 1640 Vomiting and diarrhea Dehydration Shivani Dixon PA-C 01/13/24 1641 [facility] Work Phone: 01-13-2024 Reason for referr al (narrative) Specialty Diagnoses / Procedures Referred By Kathie watkins Referred To Contact Family Medicine / Primary Care Shivani Dixon PA-C [id number] [facility] [place] [address] Referral ID Status Reason Start Date Expiration Date Visits Requested Visits Authorized [id number] Authorized Specialty Services Required 01/13/2024 01/12/2025 1 1 [facility] Work Phone: 1(599) 823-177901-10-2024 History of Present illness Narrative* Roberta CameronVANESSA - 11/23/2023 1:40 PM EST Hives off and on * TRELL Rubin - 11/23/2023 1:40 PM EST Subjective Patient ID: Nichol Mcelroy is a 23 y.o. female who presents for Hives. Hives Pertinent negatives include no diarrhea, fatigue, fever, shortness of breath or vomiting. Nichol returns via virtual visit for complaints of hives. Rash: for a week and a half covered in hives. No new changes food/detergent, soaps, lotions, shampoos, no new animals. Gets them every night at 9 o'clock and they will lessen by lunch time the next day. She reports that she will get them for a couple days and then they will stop and she won't get any, and then they will come back. She reports that they itch/painful. (Does report that she did go through a break up with her significant other-thought it to be stressed induced, but they are not getting any better as time goes on). Is currently 8 month post-. Just had 1st menses 2 weeks ago since being post-. Currently on Jencycla control. No rash today. Has tried Cetirizine-took once at dinner last night to culp off hives. Review of Systems Constitutional: Negative for fatigue and fever. HENT: Negative. Respiratory: Negative for chest tightness and shortness of breath. Cardiovascular: Negative for chest pain, palpitations and leg swelling. Gastrointestinal: Negative for abdominal pain, blood in stool, constipation, diarrhea, nausea and vomiting. Genitourinary: Negative for dysuria. Musculoskeletal: Negative for arthralgias and myalgias. Skin: Positive for rash. Negative for color change. Neurological: Negative for dizziness, light-headedness and headaches. Hematological: Negative. Psychiatric/Behavioral: Negative. Objective There were no vitals taken for this visit. Physical Exam Constitutional: Appearance: Normal appearance. Pulmonary: Effort: Pulmonary effort is normal. Neurological: General: No focal deficit present. Mental Status: She is alert and oriented to person, place, and time. Psychiatric: Mood and Affect: Mood normal. Behavior: Behavior normal. Thought Content: Thought content normal. Judgment: Judgment normal. Assessment/Plan Problem List Items Addressed This Visit None Visit Diagnoses Codes Urticaria - Primary L50.9 Relevant Orders CBC and Auto Differential Sedimentation Rate C-reactive protein CHEL with Reflex to ИРИНА Follow up as needed, and we will call her with results. documented in this [facility] Work Phone: 1(688) 215-816811-25-2023 History of Present illness Narrative* Euolgio Chester PA-C - 10/08/2023 11:25 AM EST Subjective Patient ID: Nichol Mcelroy is a 23 y.o. female who presents for URI (FEVER, BODY ACHES, CHILLS, HEADACHES, RIGHT BREAST PAIN, RIGHT SIDE SWOLLEN LYMPH NODE X 4 DAYS). HPI Patient presents for evaluation of sore throat and lymphadenopathy. Patient states approximately 5 days ago there is pain in the right breast (patient is breast-feeding) without bleeding or dischargefrom the nipple. Patient states that resolved 3 days ago but shortly thereafter sore throat, chills, and bodyaches presented. Currently, the patient is complaining of lymphadenopathy/sore throat. No fever or chills currently. No upper respiratory symptoms otherwise. No other complaints. Review of Systems Constitutional: See HPI ENT: See HPI Respiratory: See HPI Neurologic: Alert and oriented X4, No numbness, No tingling. All other systems are negative Objective BP 109/74 Pulse (!) 111 Temp 36.3 C (97.3 F) Resp 16 Ht 1.702 m (5' 7) Wt 62.6 kg (138 lb) SpO2 98% BMI 21.61 kg/m Physical Exam General: Alert and oriented, No acute distress. Eye: Pupils are equal, round and reactive to light, Extraocular movements are intact, Normal conjunctiva. HENT: Normocephalic, Normal hearing, Oral mucosa is moist, No pharyngeal erythema, No sinus tenderness. Neck: Supple, Non-tender, tender submandibular and anterior cervical lymph nodes without enlargement Respiratory: Respirations are nonlabored Gastrointestinal: Non-distended. Musculoskeletal: Normal range of motion, Normal strength, No tenderness, No swelling, No deformity,Normal gait. Integumentary: Warm, Dry, Intact, No pallor, No rash. Neurologic: Alert, Oriented, Normal sensory, Normal motor function, No focal deficits, Cranial Nerves II-XII are grossly intact Psychiatric: Cooperative, Appropriate mood & affect. Assessment/Plan Upper respiratory infection: On amoxicillin. Patient advised that symptomatic treatment from here would be an appropriate considering she is breast-feeding. Rest and supportive care otherwise. Patient's clinical presentation is otherwise unremarkable at this time. Patient is discharged with instructions to follow-up with primary care or seek emergency medical attention for worsening symptoms or any new concerns. Problem List Items Addressed This Visit None Visit Diagnoses Upper respiratory tract infection, unspecified type - Primary Relevant Medications amoxicillin (Amoxil) 875 mg tablet Final diagnoses: [J06.9] Upper respiratory tract infection, unspecified type [facility]: 1(227) 536-165911-08-2023 Evaluation + Plan note* Assessment & Plan Note - TRELL Rubin - 09/21/2023 1:23 PM ESTAssociated Problem(s): Moderate anxiety Increase Fluoxetine to 20 mg daily. She will let us know how she is doing and then we will send in the 20 mg capsules for her, unless she dose not tolerate then we will keep her at the 10 mg. Otherwise follow up in 3 months. [facility] Work Phone: 1(899) 875-314211-08-2023 Miscellaneous Notes* Assessment & Plan Note - TRELL Rubin - 09/21/2023 1:23 PM ESTAssociated Problem(s): Moderate anxiety Increase Fluoxetine to 20 mg daily. She will let us know how she is doing and then we will send in the 20 mg capsules for her, unless she dose not tolerate then we will keep her at the 10 mg. Otherwise follow up in 3 months. documented in this [facility] Work Phone: 1(550) 357-634411-08-2023 History of Present illness Narrative* Roberta Cameron CMA - 09/21/2023 1:00 PM EST Follow up with labs and medication * TRELL Rubin - 09/21/2023 1:00 PM EST Subjective Patient ID: Nichol Mcelroy is a 23 y.o. female who presents for Follow-up. HPI Nichol returns for medication follow up and lab review. Anxiety/Depression: started on Fluoxetine at last visit. Doing well on the current dose. She feels like her anxiety is improving but isn't sure if it has taken it all away yet. No side effects. Review of Systems Constitutional: Negative for fatigue. Respiratory: Negative for chest tightness and shortness of breath. Cardiovascular: Negative for chest pain, palpitations and leg swelling. Gastrointestinal: Negative for abdominal pain, blood in stool, constipation, diarrhea, nausea and vomiting. Genitourinary: Negative for dysuria. Musculoskeletal: Negative for arthralgias and myalgias. Skin: Negative for color change. Neurological: Negative for dizziness, light-headedness and headaches. Psychiatric/Behavioral: Negative for dysphoric mood. The patient is nervous/anxious. Objective BP 112/80 Pulse (!) 112 Ht 1.676 m (5' 6) Wt 63.5 kg (140 lb) BMI 22.60 kg/m Physical Exam Vitals and nursing note reviewed. Constitutional: Appearance: Normal appearance. Pulmonary: Effort: Pulmonary effort is normal. Neurological: General: No focal deficit present. Mental Status: She is alert and oriented to person, place, and time. Psychiatric: Mood and Affect: Mood normal. Behavior: Behavior normal. Thought Content: Thought content normal. Judgment: Judgment normal. Assessment/Plan Problem List Items Addressed This Visit ICD-10-CM Moderate anxiety - Primary F41.9 Increase Fluoxetine to 20 mg daily. She will let us know how she is doing and then we will send in the 20 mg capsules for her, unless she dose not tolerate then we will keep her at the 10 mg. Otherwise follow up in 3 months. Follow up in 3 months for medication refill. documented in this [facility] Work Phone: 1(554) 447-252105-09-[address] Kumar [facility] March 22, 2023 8:47am Note Date/Time March 22, 2023 8:46am [facility] Medical Records Department [address] [place] [address] Instructions for Home/Discharge Instructions 03/22/2346 MR#: [id number] Acct: [id number] Name: NICHOL MCELROY Rep #:[id number] : 2000 22 From: Lino Kumar MD PCP: LAKSHMI CHANEL Status:ADM IN Discharge Instructions Follow Up Care Please Follow Up With: Margo Bland MD When: 2&6 weeks Test Results: Test results from this visit will be discussed in further detail at your follow- up appointment, if applicable. Discharge Plan Admission Admit Date/Time: 03/21/23 03:50 Primary Reason for Your Visit: Vaginal delivery Attending Provider: Margo Bland Primary Care Provider: LAKSHMI CHANEL Consulting Providers: Tennille Avelar Discharge Orders/Prescriptions Prescriptions: New acetaminophen 500 mg Tablet 1,000 mg PO Q6H PRN PRN (Reason: Pain 1-10 Or Fever) Qty: 0 0RF ibuprofen 600 mg Tablet 600 mg PO Q6H PRN PRN (Reason: Pain Score 1-3) Qty: 0 0RF Continued iron 40 mg Capsule 45 mg PO DAILY Referrals / Follow Up: LAKSHMI CHANEL [Other] Disposition Disposition (needs filled in before D/C Order can be placed): Home, Self Care 03/22/23 0847<Electronically signed by Lino Kumar MD>Lino Kumar MD CC: M Dr. Tennille Avelar; LAKSHMI CHANEL ~ Signed [facility] Work Phone: 1(763) 301-127605-09-[address] Kumar [facility] March 22, 2023 8:46am Note Date/Time March 22, 2023 8:46am [facility] Medical Records Department [address] [place] [address] Progress Note - OBGYN 03/22/23 0845 MR#: [id number] Acct: [id number] Name: NICHOL MCELROY Rep #:[id number] : 2000 22 From: Lino Kumar MD PCP: LAKSHMI CHANEL Status:ADM IN Location: [id number] Subjective Subjective Denies complaints Objective Data Objective Data Vital Signs: Vital Signs Temp Pulse Resp BP Pulse Ox O2 Del Method 98.6 F 77 16 101/68 97 Room Air 03/22/23 07:27 03/22/23 07:27 03/22/23 07:27 03/22/23 07:27 03/22/23 07:27 03/22/23 07:27 Oxygen Delivery Method Room Air Weight: 175 lb 7.807 oz Body Mass Index (BMI) 27.4 Intake & Output: Intake and Output for Last 24 Hours 03/20/23 03/21/23 03/22/23 23:59 23:59 23:59 Intake Total 1670.66 / 1670.66 Output Total 2400 / 2400 Balance -729.34 / -729.34 Lab / Micro Data Result Diagrams: 03/22/23 05:40 Labs: Laboratory Results - last 24 hr 03/22/23 05:40: WBC 10.3, RBC 3.30 L, Hgb 10.7 L, Hct 32.4 L, MCV 98.2, MCH 32.4H, MCHC 33.0, RDW Std Deviation 53.4 H, RDW Coeff of Paul 15.1 H, Plt Count 164, MPV 11.8 Physical Exam Const alert, oriented x3 and no apparent distress HEENT normocephalic GI soft to palpation, non-tender and non-distended GI Narrative: fundus firm, mid & below umbilicus Extremity normal to inspection and no calf tenderness Assessment & Plan (1) (spontaneous vaginal delivery): COMMENT: PPD#1 PLAN: Plan D/c home 03/22/2346 <Electronically signed by Lino Kumar MD> Cosigner Signature (if applicable): CC: ~ Signed [facility] Work Phone: 1(300) 264-238705-08-2023 History and physical note Author Dr. Bland [facility] March 21, 2023 8:55am Note Date/Time March 21, 2023 8:55am [facility] Medical Records Department [address] [place] [address] H&P Exam - [employer] 03/21/23851 MR#: [id number] Acct: [id number] Name: NICHOL MCELROY Rep #:[id number] : 2000 22 From: Margo Bland MD PCP: LAKSHMI CHANEL Status:ADM IN Location: [id number] HPI - General General Date of Admission: 03/21/23 Date of Service: 03/21/23 Chief Complaint: labor HPI Narrative NICHOL MCELROY, is a 22 1 para 0 who presents at 39-5/7 weeks gestation inspontaneous labor. She denies any gross vaginal bleeding. Patient has a history of nausea vomiting and early in the , depression,anemia during , vaping with nicotine dependence during . She has remote history of sports induced asthma but she has not required any medication since 2010. Maternal Data Information Final RUPINDER: 03/24/23 Gestational age: 39 5/7 [facility] Medical History (Updated 03/21/23 @ 08:[address] Margo Bland MD) Anemia Anxiety Asthma Depression macrosomia Orthostatic hypotension Home Medications iron 40 mg capsule 45 mg PO DAILY 03/11/23 [History Last Taken 03/19/23] Allergy/AdvReac Type Severity Reaction Status Date / Time No Known Allergies Allergy Verified 03/18/23 14:23 Surgical History (Updated 03/21/23 @ 04:16 by María Wolf) Olga teeth removed Social History Smoking Status: Current every day smoker History Elective abortions Hx Para 0 Spontaneous abortions Hx # Term Pregnancies Ectopic pregnancies Hx # Pregnancies Multiple births # of living children ROS Constitutional Constitutional: Denies fatigue, fever(s) or malaise Eyes Eyes: Denies change in vision ENT HEENT: Denies dizziness or headache(s) Cardiovascular Cardiovascular: Denies chest pain, dyspnea or lightheadedness Respiratory/Chest Respiratory/Chest: Denies cough or dyspnea Gastrointestinal Gastrointestinal: Denies change in bowel habits Genitourinary Genitourinary: Denies burning urination or genital lesions Integumentary Integumentary: Denies rash Neurologic Neurologic: Denies confusion, dizziness, headache(s), numbness or weakness Vital Signs Vital Signs Vital Signs: 03/21/23 03:13 03/21/23 03:13 03/21/23 03:13 Temperature Temperature Source Temporal Pulse Rate 93 Blood Pressure 124/75 H BP Systolic 124 BP Diastolic 75 Pulse Ox 03/21/23 03:15 03/21/23 03:15 03/21/23 03:13 Temperature 97.7 F L Temperature Source Pulse Rate 117 H Blood Pressure BP Systolic BP Diastolic Pulse Ox 99 03/21/23 05:25 03/21/23 05:25 03/21/23 05:26 Temperature Temperature Source Pulse Rate 85 Blood Pressure 113/73 BP Systolic 113 BP Diastolic 73 Pulse Ox 100 03/21/23 05:26 03/21/23 05:28 03/21/23 05:28 Temperature Temperature Source Pulse Rate 80 89 Blood Pressure 115/74 BP Systolic 115 BP Diastolic 74 Pulse Ox 03/21/23 05:30 03/21/23 05:30 03/21/23 05:32 Temperature Temperature Source Pulse Rate 91 Blood Pressure 115/72 BP Systolic 115 BP Diastolic 72 Pulse Ox 100 03/21/23 05:32 03/21/23 05:35 03/21/23 05:35 Temperature Temperature Source Pulse Rate 94 91 Blood Pressure BP Systolic BP Diastolic Pulse Ox 100 03/21/23 05:37 03/21/23 05:37 03/21/23 05:40 Temperature Temperature Source Pulse Rate 107 H 93 Blood Pressure 107/66 BP Systolic 107 BP Diastolic 66 Pulse Ox 03/21/23 05:40 03/21/23 05:42 03/21/23 05:42 Temperature Temperature Source Pulse Rate 95 Blood Pressure 100/55 L BP Systolic 100 BP Diastolic 55 Pulse Ox 99 03/21/23 05:45 03/21/23 05:45 05/08/23 05:48 Temperature Temperature Source Pulse Rate 98 Blood Pressure 118/58 L BP Systolic 118 BP Diastolic 58 Pulse Ox 99 03/21/23 05:48 03/21/23 05:32 03/21/23 05:50 Temperature Temperature Source Temporal Pulse Rate 96 95 Blood Pressure BP Systolic BP Diastolic Pulse Ox 03/21/23 05:50 03/21/23 05:32 03/21/23 05:52 Temperature 98.1 F Temperature Source Pulse Rate Blood Pressure 105/57 L BP Systolic 105 BP Diastolic 57 Pulse Ox 98 03/21/23 05:52 03/21/23 05:55 03/21/23 05:55 Temperature Temperature Source Pulse Rate 95 101 H Blood Pressure BP Systolic BP Diastolic Pulse Ox 99 03/21/23 05:57 03/21/23 05:57 03/21/23 06:00 Temperature Temperature Source Pulse Rate 90 103 H Blood Pressure 109/60 BP Systolic 109 BP Diastolic 60 Pulse Ox 03/21/23 06:00 03/21/23 06:02 03/21/23 06:02 Temperature Temperature Source Pulse Rate 83 Blood Pressure 113/62 BP Systolic 113 BP Diastolic 62 Pulse Ox 100 03/21/23 06:07 03/21/23 06:07 03/21/23 06:12 Temperature Temperature Source Pulse Rate 87 Blood Pressure 116/66 113/62 BP Systolic 116 113 BP Diastolic 66 62 Pulse Ox 03/21/23 06:12 03/21/23 06:12 03/21/23 06:12 Temperature 98.6 F Temperature Source Temporal Pulse Rate 78 Blood Pressure BP Systolic BP Diastolic Pulse Ox 03/21/23 07:06 03/21/23 07:06 03/21/23 07:06 Temperature Temperature Source Temporal Pulse Rate 85 Blood Pressure 110/61 BP Systolic 110 BP Diastolic 61 Pulse Ox 03/21/23 07:06 03/21/23 08:06 03/21/23 08:06 Temperature 98.0 F Temperature Source Pulse Rate 81 Blood Pressure 112/63 BP Systolic 112 BP Diastolic 63 Pulse Ox Weight Weight: 79.6 kg Body Mass Index (BMI) 27.4 Physical Exam Const alert and no apparent distress General Appearance: cooperative HEENT normocephalic Resp normal respiratory effort Cardio regular rate GI soft to palpation GI Narrative: gravid, nontender, appropriate for gestational age Extremity no calf tenderness General Extremity: edema Skin no wounds Rashes: No rashes noted Psych activity/motor behavior normal Labs Labs Labs: Blood Type O POSITIVE Antibody Screen NEGATIVE Hct 35.3 % (37-47) L Hgb 11.7 g/dL (12.0-15.0) L Syphilis Total Ab Non-reactive Assessment & Plan (1) 39 weeks gestation of : PLAN: Knolle parous patient in spontaneous labor. Group B strep prophylaxis is initiated for group B strep positive status during . Estimated weight is less than 5000 g clinically and pelvis clinically adequate to expect vaginal delivery. May have epidural or other routine pain management measures as indicated and desired. (2) Elective induction of labor planned: 03/21/23854 <Electronically signed by Margo Bland MD> Cosigner Signature (if applicable): CC: LAKSHMI CHANEL; Dr. Margo Bland MD~ Signed [facility] Work Phone: 1([phone]) 330-532905-08-2023 History of Present illness Narrative* Roselia Ku RN - 03/21/2023 9:55 AM EDT Patient delivered via by Dr. Bland on 03/21/23 at [facility]. See OB history. Roselia Ku RN [facility] this [facility]2023 Procedure [facility]05-05-2023 Miscellaneous Notes* Quick Notes - Tennille Jacinto MD - 03/18/2023 1:41 PM EDT DM-Pt doing well. Denies vaginal Bleeding, Leaking fluid, or regular Contractions. Pt reports good movement Physical Exam: Gen: female in no apparent distress Abd: soft, Gravid. Non tender to palpation. See flow sheet A/P: @ 39.1 weeks 1) membrane sweep per patient request 2) RTO one week 3) labor and kick counts reviewed. Tennille Avelar MD documented in this [facility]05-05-2023 Instructions* Patient Instructions* Azael Zimmerman Ma - 03/18/2023 1:26 PM EDT SEQUENTIAL SCREENINGS The [facility] offers sequential screenings for women who are interested in screenings for chromosomal abnormalities and certain defects during a . The sequential screen combinesultrasound and blood tests to determine the risk of chromosomal abnormalities, including Down's Syndrome (Trisomy 21) and Trisomy 18, as well as open neural tube defects including spina bifida. Ultrasound examination is performed between 11 weeks and 13 weeks gestational age. Blood tests are drawn after the ultrasound and again later in the between 15 and 21 weeks gestational age. Please let your physician know if you are interested in this testing. It will require an appointment withour dialysis technician. This is not an ultrasound performed by a physician in our office during a routine visit. SIGNS AND SYMPTOMS OF LABOR 1. Contractions every 10 minutes or more often 2. Clear, pink, or brownish fluid (water) leaking from vagina 3. Feeling that baby is pushing down, pressure 4. Low, dull backache 5. Cramps that feel like a period 6. Cramps with or without diarrhea If you notice any of the above symptoms, contact our office at [phone] and ask to speak with anurse. After hours, you can call doctors registry at [phone] OR call [facility] at [phone] ask to have the doctor production control specialist paged. If you consider this an emergency, dial 9-1-7 or go to your nearest emergency department. NEED HELP? Are you dealing with a violent or abusive relationship? Are you a victim of rape or sexual assult? Call [facility] ([place]) 24 hour Crisis Hotline: 407.640.6506 or 021-719-1487. MANUAL Your Guide to a Healthy manual is now on-line. Visit [email or web address] to download your free copy documented in this encounterMad[facility]05-01-2023 Miscellaneous Notes* Quick Notes - Vilma Painter APRN.ALLEN - 03/14/2023 3:39 PM EDT MIGUE-S: Nichol Mcelroy is a 22 year old female who presents at 38w4d with RUPINDER:03/24/2023, by Last Menstrual Period for membrane sweep per patient request. Good FM. Denies headache, visual changes, chest pain, shortness of breath, vaginal bleeding, leakage of fluid, or dysuria. Feeling well, no complaints. Requesting membrane sweep. Irregular contractions over the weekend. O: See flow sheet Gen: No apparent distress Abd: Gravid, nontender Membranes swept per patient request ASSESSMENT/PLAN: 1. 38 weeks gestation of P: 1) Labor instructions reviewed. reviewed and when to call 2) RTO as scheduled 3) Declines IOL and prefers expectant management. Vilma Painter APRN.CNM documented in this [facility]05-01-2023 Instructions* Patient Instructions* Azael Zimmerman Ma - 03/14/2023 3:22 PM EDT SEQUENTIAL SCREENINGS The [facility] offers sequential screenings for women who are interested in screenings for chromosomal abnormalities and certain defects during a . The sequential screen combinesultrasound and blood tests to determine the risk of chromosomal abnormalities, including Down's Syndrome (Trisomy 21) and Trisomy 18, as well as open neural tube defects including spina bifida. Ultrasound examination is performed between 11 weeks and 13 weeks gestational age. Blood tests are drawn after the ultrasound and again later in the between 15 and 21 weeks gestational age. Please let your physician know if you are interested in this testing. It will require an appointment withour dialysis technician. This is not an ultrasound performed by a physician in our office during a routine visit. SIGNS AND SYMPTOMS OF LABOR 1. Contractions every 10 minutes or more often 2. Clear, pink, or brownish fluid (water) leaking from vagina 3. Feeling that baby is pushing down, pressure 4. Low, dull backache 5. Cramps that feel like a period 6. Cramps with or without diarrhea If you notice any of the above symptoms, contact our office at [phone] and ask to speak with anurse. After hours, you can call doctors registry at [phone] OR call [facility] at [phone] ask to have the doctor production control specialist paged. If you consider this an emergency, dial or go to your nearest emergency department. NEED HELP? Are you dealing with a violent or abusive relationship? Are you a victim of rape or sexual assult? Call [facility] ([place]) 24 hour Crisis Hotline: 316.170.8007 or 525-594-4075. MANUAL Your Guide to a Healthy manual is now on-line. Visit [email or web address] to download your free copy documented in this encounterMad[facility]04-20-2023 Miscellaneous Notes* Telephone Encounter - Tennille Jacinto MD - 03/03/2023 10:36 AM EDT noted * Telephone Encounter - Wendy Lira LPN - 03/03/2023 9:18 AM EDT Cristal from [facility] called and stated that pt does not need precert for infusions. The infusion centerwill be contacting the pt later today to get her scheduled Wendy Lira LPN * Telephone Encounter - Kateryna Dyer RN - 03/02/2023 3:56 PM EDT I called [facility] and they said they are waiting for authorization from [facility] precert department. I was transferred to precert department and left a message for them to call us back. Patientis 36w6d by dates. It appears that she has been precertified through [facility] so this paper was faxed over to [facility]. I told patient to call us at 8am on Tuesday morning if she hasn't got an appointment by then. Dr Jacinto informed documented in this encounterMad[facility]04-19-2023 Miscellaneous Notes* Quick Notes - Tennille Jacinto MD - 03/02/2023 3:57 PM EDT DM-Pt doing well. Denies vaginal Bleeding, Leaking fluid, or regular Contractions. Pt reports good movement. Feeling more anxious lately. Back pain. Physical Exam: Gen: female in no apparent distress Abd: soft, Gravid. Non tender to palpation. See flow sheet A/P: @ 36.6 weeks 1) vertex on ultrasound 2) growth us reveiwed- 90% 3) GBS today 4) kick counts and labor reviewed 5) iron infusions pending at [facility] Tennille Avelar MD documented in this encounterMad[facility]04-19-2023 Instructions* Patient Instructions* Julio Cesar Hensley Cma - 03/02/2023 3:15 PM EDT SEQUENTIAL SCREENINGS The [facility] offers sequential screenings for women who are interested in screenings for chromosomal abnormalities and certain defects during a . The sequential screen combinesultrasound and blood tests to determine the risk of chromosomal abnormalities, including Down's Syndrome (Trisomy 21) and Trisomy 18, as well as open neural tube defects including spina bifida. Ultrasound examination is performed between 11 weeks and 13 weeks gestational age. Blood tests are drawn after the ultrasound and again later in the between 15 and 21 weeks gestational age. Please let your physician know if you are interested in this testing. It will require an appointment withour dialysis technician. This is not an ultrasound performed by a physician in our office during a routine visit. SIGNS AND SYMPTOMS OF LABOR 1. Contractions every 10 minutes or more often 2. Clear, pink, or brownish fluid (water) leaking from vagina 3. Feeling that baby is pushing down, pressure 4. Low, dull backache 5. Cramps that feel like a period 6. Cramps with or without diarrhea If you notice any of the above symptoms, contact our office at [phone] and ask to speak with anurse. After hours, you can call doctors registry at [phone] OR call [facility] at [phone] ask to have the doctor production control specialist paged. If you consider this an emergency, dial 9-1-4 or go to your nearest emergency department. NEED HELP? Are you dealing with a violent or abusive relationship? Are you a victim of rape or sexual assult? Call [facility] ([place]) 24 hour Crisis Hotline: 552.380.2206 or 122-046-0597. MANUAL Your Guide to a Healthy manual is now on-line. Visit [email or web address] to download your free copy documented in this encounterMad[facility]04-11-2023 Miscellaneous Notes* Quick Notes - Lino Kumar MD - 02/22/2023 1:46 PM EDT KJ - VB No. LOF No. CTXS Yes - occ & mild. Movement: present. Other c/o: possible yeast infection Medication list reviewed. Physical Exam See Flow Sheet Gen: no accute distress, well appearing Abd: soft, nontender, gravid : external genitalia: normal TAUS: confirms vtx A/P 35w5d Estimated Date of Delivery: 03/24/23 Anemia - IV iron at [facility] Vaginitis swab for yeast/BV/trich S<D - check formal growth US PTL precautions reviewed, Kick counts reviewed. Lino Kumar MD documented in this encounterMad[facility]04-11-2023 Instructions* Patient Instructions* Klaudia Ly Ma - 02/22/2023 1:34 PM EDT SEQUENTIAL SCREENINGS The [facility] offers sequential screenings for women who are interested in screenings for chromosomal abnormalities and certain defects during a . The sequential screen combinesultrasound and blood tests to determine the risk of chromosomal abnormalities, including Down's Syndrome (Trisomy 21) and Trisomy 18, as well as open neural tube defects including spina bifida. Ultrasound examination is performed between 11 weeks and 13 weeks gestational age. Blood tests are drawn after the ultrasound and again later in the between 15 and 21 weeks gestational age. Please let your physician know if you are interested in this testing. It will require an appointment withour dialysis technician. This is not an ultrasound performed by a physician in our office during a routine visit. SIGNS AND SYMPTOMS OF LABOR 1. Contractions every 10 minutes or more often 2. Clear, pink, or brownish fluid (water) leaking from vagina 3. Feeling that baby is pushing down, pressure 4. Low, dull backache 5. Cramps that feel like a period 6. Cramps with or without diarrhea If you notice any of the above symptoms, contact our office at [phone] and ask to speak with anurse. After hours, you can call [email or web address] registry at [phone] OR call [facility] at [phone] ask to have the doctor production control specialist paged. If you consider this an emergency, dial 8-6-7 or go to your nearest emergency department. NEED HELP? Are you dealing with a violent or abusive relationship? Are you a victim of rape or sexual assult? Call [facility] ([place]) 24 hour Crisis Hotline: 132.232.5632 or 811-100-8121. MANUAL Your Guide to a Healthy manual is now on-line. Visit [email or web address] to download your free copy documented in this encounterMadison Health04-11-2023 History of Present illness Narrative* Angela Joe RN - 02/22/2023 11:53 AM EDT Patient referred to Blood Management for evaluation and treatment of pre- surgical anemia and/or iron deficiency. Non-surgical: anemia in Date of surgery: NA Medical/Surgical History: PAST MEDICAL HISTORY Diagnosis Date Anemia Anxiety Asthma sport induced, off medication since 2010 Depression Fracture of upper extremity Left arm Orthostatic hypotension PAST SURGICAL HISTORY Procedure Laterality Date PAST SURGICAL HISTORY OF wisdom teeth Other significant Medical/Surgical history: - None Current Outpatient Medications Medication Sig folic acid 1 mg tablet Take 1 tablet by mouth once daily. ferrous sulfate (SLOW FE) 140 mg (45 mg iron) TbER Take 1 tablet by mouth once daily. No current facility-administered medications for this visit. Current medications that may affect iron absorption and/or blood loss: - None Baseline laboratory values: WBC (k/uL) Date Value 02/11/2023 8.72 RBC (m/uL) Date Value 02/11/2023 2.92 (L) Hemoglobin (g/dL) Date Value 02/11/2023 9.5 (L) Hematocrit (%) Date Value 02/11/2023 28.1 (L) MCV (fL) Date Value 02/11/2023 96.2 MCH (pg) Date Value 02/11/2023 32.5 MCHC (g/dL) Date Value 02/11/2023 33.8 RDW-CV (%) Date Value 02/11/2023 13.7 Platelet Count (k/uL) Date Value 02/11/2023 139 (L) MPV (fL) Date Value 02/11/2023 11.2 Iron Date Value Ref Range Status 02/17/2023 108 41 - 186 ug/dL Final TIBC Date Value Ref Range Status 02/17/2023 506 (H) 232 - 386 ug/dL Final Ferritin Date Value Ref Range Status 02/17/2023 15.9 14.7 - 205.1 ng/mL Final Transferrin Saturation Date Value Ref Range Status 02/17/2023 21.3 15.0 - 57.0 % Final Assess for the need to augment a patient s natural red blood cell production: - Blood transfusion avoidance - Iron depletion Recommendations according to Blood Management patient care guidelines: - Iron Sucrose 200 mg, IV infusion, dose(s) 3 total iron deficit using Ganzoni equation = 748 mg (pre- wt 69 kg/goal hgb 11 g/dL) Clinical information is sent to a provider for review and evaluation for treatment. documented in this encounterMadison Health04-05-2023 Miscellaneous Notes* Telephone Encounter - Zoë Stewart RN - 02/16/2023 9:52 AM EDT Patient notified. Will have iron studies drawn tomorrow. Zoë Stewart RN * Telephone Encounter - Roselia Ku RN - 02/16/2023 9:32 AM EDT Left message for patient to call office. Roselia Ku RN * Telephone Encounter - Roselia Ku RN - 02/16/2023 9:32 AM EDT ----- Message from Chula Lockett APRN.CNM sent at 02/16/2023 8:59 AM EDT ----- HGB. Low despite taking oral iron. Additional labs and blood management consult ordered. Please notify patient. Chula Lockett APRN.CNM documented in this encounterMadison Health03-31-2023 Miscellaneous Notes* Quick Notes - Tennille Jacinto MD - 02/11/2023 1:32 PM EDT DM-Pt doing well. Denies vaginal Bleeding, Leaking fluid, or regular Contractions. Pt reports good movement. Still smoking but minimal compared to when she started Physical Exam: Gen: female in no apparent distress Abd: soft, Gravid. Non tender to palpation. See flow sheet A/P: @ 34.1 weeks 1) continue PO iron 2) repeat cbc today 3) kick counts reviewed 4) RTO 2 wks Tennille Avelar MD documented in this encounterMadison Health03-31-2023 Instructions* Patient Instructions* Sun Walters MA - 02/11/2023 1:20 PM EDT SEQUENTIAL SCREENINGS The [facility] offers sequential screenings for women who are interested in screenings for chromosomal abnormalities and certain defects during a . The sequential screen combinesultrasound and blood tests to determine the risk of chromosomal abnormalities, including Down's Syndrome (Trisomy 21) and Trisomy 18, as well as open neural tube defects including spina bifida. Ultrasound examination is performed between 11 weeks and 13 weeks gestational age. Blood tests are drawn after the ultrasound and again later in the between 15 and 21 weeks gestational age. Please let your physician know if you are interested in this testing. It will require an appointment withour dialysis technician. This is not an ultrasound performed by a physician in our office during a routine visit. SIGNS AND SYMPTOMS OF LABOR 1. Contractions every 10 minutes or more often 2. Clear, pink, or brownish fluid (water) leaking from vagina 3. Feeling that baby is pushing down, pressure 4. Low, dull backache 5. Cramps that feel like a period 6. Cramps with or without diarrhea If you notice any of the above symptoms, contact our office at [phone] and ask to speak with anurse. After hours, you can call doctors registry at [phone] OR call [facility] at [phone] ask to have the doctor production control specialist paged. If you consider this an emergency, dial 6-1-4 or go to your nearest emergency department. NEED HELP? Are you dealing with a violent or abusive relationship? Are you a victim of rape or sexual assult? Call [facility] ([place]) 24 hour Crisis Hotline: 256.508.7828 or 827-932-3629. MANUAL Your Guide to a Healthy manual is now on-line. Visit [facility].org/HealthyPregnancyGuide to download your free copy documented in this encounterMadison Health03-17-2023 Miscellaneous Notes* Quick Notes - Chula Lockett APRN.ALLEN - 01/28/2023 11:14 AM EDT S: Nichol Mcelroy is a 22 year old female who presents at 32.1 weeks gestation for a routine visit. Just completed repeat ultrasound. Low lying placenta has resolved. EFW 36%, SUJATA 16. Reviewed results with patient and mother. Not taking oral iron regularly and encouraged to start. Repeat CBC next visit. Continues to have increased anxiety. Reports panic attacks a couple of times during the week. Gets very overwhelmed. Describes herself as having very high emotions. She will be very angry and agitated for no specific reason and lash out at family and then finds herself crying uncontrollably. Establishing care with a counselor recommended during the last visit. She has not reached out to any counselors. History of depression and anxiety. Took medications years ago that never seemed to work. Open to counseling at this time. Denies SI/HI. Positive movement. Denies headache, visual changes, chest pain, shortness of breath, vaginal bleeding, leakage of fluid, or dysuria. Having somehip pain- suggested home care music therapist. O: See flow sheet Gen: No apparent distress Abd: Gravid, nontender ASSESSMENT/PLAN: 1. 32 weeks gestation of - ICD9: V22.2, ICD10: Z3A.32 (primary diagnosis) 2. Mood changes - ICD9: 296.90, ICD10: R45.86 3. 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 History of panic attacks - ICD9: V11.8, ICD10: Z86.59 Plan: - UA - Consult to Women's behavioral health- possibly virtual visit - MH resources provided including crisis center number - Mother present in visit and supportive of patient - PTL precautions reviewed RTO- 2 weeks or sooner if needed Chula Lockett APRN.CNM documented in this encounterMadison Health03-17-2023 Instructions* Patient Instructions* Chula Lockett APRN.CNM - 01/28/2023 10:35 AM EDT Here are some links for wonderful Providers here in the community and surrounding areas. Do not hesitate to contact their offices, many are offering virtual visits during this time. 1-255-3-QWNR4TSOF - [place] Maternal Mental Health Hotline If you are in suicidal crisis, please call or text 8-500-145-TALK ( ) or visit the National Suicide Prevention Lifeline website. mchb.[facility].gov [facility] Psychology, Psychiatry, Counseling Connect with therapist/ can do virtual visits [phone] Referral to the [facility] To schedule an appointment, please call the [facility] for [facility]al Health Appointment Line: [phone] option 1 [facility] - [place], [place] [address] [place] [address] [facility] [address] [place] [address] [facility] [address] [place] [address] [facility] [address] [place] [id number] Salomón Felton MD [address] [place], [place] [id number] [facility] [address], [address] [place] [address] [facility] [address] [place] [address] [facility] Counseling Services [place] / [place] [phone]/ [phone] Camilla Martel [address] [facility] [address] [facility] [phone] [facility] Mediation [place] / [place] [phone] Behavioral health services of [facility] [address] [place] [address]/ [place] [employer] [place] [phone] Rand [place], MARIA LUISA, ALLISON Salomon and [facility] Family Therapy Workshops, telehealth and at home visits. [phone] Humanistic counseling center 20 locations [place], [place], [place], [place], [place], [place], [place], [facility], [place], [place], [place], [place], [place], [place], [facility], [place], [place] ,[facility], [place], [place],[facility], [facility], [place], [facility], westparBalaji [place] www.Metheor [employer]rapeutics [phone] Psychotherapy resources outside of [facility] are listed below [facility] Web: https://www.Rebel Coast Winerycle.NeuroNascent/ Support International Online Provider Directory https://Roost/ [facility] https://AnchorFree/ Partners for Behavioral Health and Wellness Web: https://Xtone/ FanXT for Effective Living Web: https://VideoIQliving.NeuroNascent/ LifeStance Web: https://Frictionless Commerce/location/state/[place]/ [facility] Web: https://www.signaturedzilth-[facility].org/ [facility] Web: https://The [employer] Holdings.TellMi/ Recovery Resources Mental health and substance abuse help Web: https://www.ZarthCodes.org & RESOURCES Support International Direct peer support and connection to professional resources Non-Emergency Helpline Phone: / Text: [phone] Web: https://www..net/ Online Provider Directory: https://Roost/ Online Support Meetings: https://www..net/get-help/pyt-repvhk-ltjsxax-meetings/ EDDIE Baby and Shuttle [employer] Services Web: https://wwwFilterEasy/ MotherGoodpatch Expert information on medication use during and Text: [phone] Web: https://EMKinetics/ NATIONAL REGISTRY FOR PSYCHIATRIC MEDICATIONS Currently studying the safety of antidepressants, ADHD medications and atypical antipsychotics taken during TO PARTICIPATE CALL TOLL-FREE: Web: https://womensmentalhealth.org/research/pregnancyregistry/ Support Groups: [facility]- Follow on facebook Baby Bistro support group led by [facility] department [facility] - Support Group [facility].org The POEM support group [phone] Www.poemonline.org Follow on facebook - DELIA yadav Online support meetings PSI https://www..net/get-help/akn-cdrxrn-gpenvet-meetings/ [facility] mommy and me virtual support group 11:30-1pm Support for mothers and new babies and toddlers Moira childbirth education: Childbirth @cc.org or call [phone] CRISIS: CRISIS HOTLINE [phone], 911 or go to the nearest ER. [facility] [phone] / [facility] [phone] https://www.city hospital.org Crisis text line text the word HOME to [address] [facility] [address] [place] [address] [facility] [address] www.ProtoShare Zahida [facility] clinical counseling [address] [address] www.Trunk Club [phone] Holding space psychotherapy Maame Elizondo [facility] [address] [facility] www.iFlexMe [phone]/ [place] [phone] They all offer virtual. All work with trauma Support groups Online support meetings PSI https://www..net/get-help/sht-ltqxvi-skoilke-meetings/ Here are the support groups they offer: Support of parents of 1 to 4 years old children POEM ( Outreach and Encouragement for Moms) offers free support for mothers experiencing depression, anxiety, and other mood and anxiety disorders. Masks are recommended but not required. No pre-registration required. Babies in arms welcome. meetings now take place on the and Tuesday of each month Location: [facility] [address] [place] [address] Room 122 (library room) 7-8:00 p.m. When you enter the jehovah's witness parking lot off of [address], the entrance door closest to our meeting room is on the front of the building toward the right. For those who are more comfortable with a virtual platform, [employer] offers online support group options several days of the week. To register for an online group or to find out more about POLEWIS, website at: https://MobileOCTaohio.org/get-help/gtjzchtk-svkvzt-rndfwh/poem-services/ offer a confidential helpline: private Facebook group is called DELIA Martín Yadav Here are the groups they offer: Traumatic childbirth resources: Http://pattch.org/ https://www.TrumpITmeredithAxis Network Technology/ SEQUENTIAL SCREENINGS The [facility] offers sequential screenings for women who are interested in screenings for chromosomal abnormalities and certain defects during a . The sequential screen combinesultrasound and blood tests to determine the risk of chromosomal abnormalities, including Down's Syndrome (Trisomy 21) and Trisomy 18, as well as open neural tube defects including spina bifida. Ultrasound examination is performed between 11 weeks and 13 weeks gestational age. Blood tests are drawn after the ultrasound and again later in the between 15 and 21 weeks gestational age. Please let your physician know if you are interested in this testing. It will require an appointment withour dialysis technician. This is not an ultrasound performed by a physician in our office during a routine visit. SIGNS AND SYMPTOMS OF LABOR 1. Contractions every 10 minutes or more often 2. Clear, pink, or brownish fluid (water) leaking from vagina 3. Feeling that baby is pushing down, pressure 4. Low, dull backache 5. Cramps that feel like a period 6. Cramps with or without diarrhea If you notice any of the above symptoms, contact our office at [phone] and ask to speak with anurse. After hours, you can call doctors registry at [phone] OR call [facility] at [phone] ask to have the doctor production control specialist paged. If you consider this an emergency, dial or go to your nearest emergency department. NEED HELP? Are you dealing with a violent or abusive relationship? Are you a victim of rape or sexual assult? Call [facility] ([facility] 24 hour Crisis Hotline: 676.364.9481 or 329-388-3035. MANUAL Your Guide to a Healthy manual is now on-line. Visit [facility].org/HealthyPregnancyGuide to download your free copy documented in this encounterMadison Health03-16-2023 Miscellaneous Notes* Telephone Encounter - Roselia Ku RN - 01/27/2023 10:50 AM EDT Order signed and faxed. Roselia Ku RN * Telephone Encounter - Roselia Ku RN - 01/26/2023 10:17 AM EDT Breast pump order received from [employer]. To CP to sign. Roselia Ku RN documented in this encounterMadison Health03-03-2023 Miscellaneous Notes* Quick Notes - Lino Kumar MD - 01/14/2023 1:01 PM EST KJ - Patient's mother reports concerns about her depression & anxiety. She states that patient is tearful many days. Patient denies HI/SI. VB No. LOF No. CTXS No. Movement: present. Other c/o: No. Medication list reviewed. Physical Exam See Flow Sheet Gen: no accute distress, well appearing Abd: soft, nontender, gravid A/P 30w1d Estimated Date of Delivery: 03/24/23 Anemia - encouraged Fe & folic acid use. Repeat CBC next visit. Anxiety & depression - recommend counseling & information given PTL precautions reviewed, Kick counts reviewed. Lino Kumar MD documented in this encounterMadison Health03-03-2023 Instructions* Patient Instructions* Sun Walters MA - 01/14/2023 12:49 PM EST SEQUENTIAL SCREENINGS The [facility] offers sequential screenings for women who are interested in screenings for chromosomal abnormalities and certain defects during a . The sequential screen combinesultrasound and blood tests to determine the risk of chromosomal abnormalities, including Down's Syndrome (Trisomy 21) and Trisomy 18, as well as open neural tube defects including spina bifida. Ultrasound examination is performed between 11 weeks and 13 weeks gestational age. Blood tests are drawn after the ultrasound and again later in the between 15 and 21 weeks gestational age. Please let your physician know if you are interested in this testing. It will require an appointment withour dialysis technician. This is not an ultrasound performed by a physician in our office during a routine visit. SIGNS AND SYMPTOMS OF LABOR 1. Contractions every 10 minutes or more often 2. Clear, pink, or brownish fluid (water) leaking from vagina 3. Feeling that baby is pushing down, pressure 4. Low, dull backache 5. Cramps that feel like a period 6. Cramps with or without diarrhea If you notice any of the above symptoms, contact our office at [phone] and ask to speak with anurse. After hours, you can call doctors registry at [phone] OR call [facility] at [phone] ask to have the doctor production control specialist paged. If you consider this an emergency, dial 0-1-3 or go to your nearest emergency department. NEED HELP? Are you dealing with a violent or abusive relationship? Are you a victim of rape or sexual assult? Call [facility] ([place]) 24 hour Crisis Hotline: 644.102.4946 or 315-374-6625. MANUAL Your Guide to a Healthy manual is now on-line. Visit [facility].org/HealthyPregnancyGuide to download your free copy documented in this encounterMadison Health02-17-2023 History of Present illness Narrative* Julio Cesar [facility] - 12/31/2022 10:45 AM EST Patient identified by name and date of . Nichol Mcelroy presents today for a vaccination of Tdap. Patient denies an allergy to latex: yes Patient denies a severe (life-threatening) allergy to a previous dose of Tdap, DTP, DTaP, DT or Td vaccine. Yes Patient denies history of epilepsy or neurological problems: Yes Patient is afebrile and denies being moderately or severely ill: Yes Patient denies history of Guillain-Waldo Syndrome (a severe paralytic illness): Yes Tdap Adacel injection was given without incident. See immunizations for details of immunizations administered today. VIS sheet provided: Yes Provider Chula Lockett CNM was present in office at time of injection. Julio Cesar Hensley Cma documented in this encounterMadison Health02-17-2023 Miscellaneous Notes* Quick Notes - Chula Lockett APRN.CNM - 12/31/2022 10:38 AM EST S: Nichol Mcelroy is a 22 year old female who presents at 28 weeks gestation for a routine visit. Just completed GCT. Some dizziness, lightheadedness when first gets up in morning. Reviewed changing ofpositions slowly. 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 Denies headache, visual changes, chest pain, shortness of breath, vaginal bleeding, leakage of fluid, or dysuria. Feelingwell, no complaints. O: See flow sheet Gen: No apparent distress Abd: Gravid, non tender S=D ASSESSMENT/PLAN: 1. 28 weeks gestation of - ICD9: V22.2, ICD10: Z3A.28 (primary diagnosis) - 1 hour GCT, CBC, and RPR today - Rh positive- O+ - TDAP today - LARC form reviewed and signed. Patient declines- wants OCP - Depression screen negative - Opioid screen negative - plan form discussed and given to patient. Patient desires epidural and 2. Low lying placenta nos or without hemorrhage, second trimester - ICD9: 641.03, ICD10: O44.42 - Repeat US at 32 weeks- order placed 3. Vapes nicotine containing substance - ICD9: 305.1, ICD10: Z72.0 - Cessation encouraged. - Physiologic and physical aspects of tobacco addiction as well as strategies for quitting were discussed. 1) PTL precautions reviewed and when to call 2) RTO 2 weeks or sooner if needed Chula Lockett APRN.CNM documented in this encounterMadison Health02-17-2023 Instructions* Patient Instructions* Julio Cesar Hensley Cma - 12/31/2022 10:21 AM EST SEQUENTIAL SCREENINGS The [facility] offers sequential screenings for women who are interested in screenings for chromosomal abnormalities and certain defects during a . The sequential screen combinesultrasound and blood tests to determine the risk of chromosomal abnormalities, including Down's Syndrome (Trisomy 21) and Trisomy 18, as well as open neural tube defects including spina bifida. Ultrasound examination is performed between 11 weeks and 13 weeks gestational age. Blood tests are drawn after the ultrasound and again later in the between 15 and 21 weeks gestational age. Please let your physician know if you are interested in this testing. It will require an appointment withour dialysis technician. This is not an ultrasound performed by a physician in our office during a routine visit. SIGNS AND SYMPTOMS OF LABOR 1. Contractions every 10 minutes or more often 2. Clear, pink, or brownish fluid (water) leaking from vagina 3. Feeling that baby is pushing down, pressure 4. Low, dull backache 5. Cramps that feel like a period 6. Cramps with or without diarrhea If you notice any of the above symptoms, contact our office at [phone] and ask to speak with anurse. After hours, you can call doctors registry at [phone] OR call [facility] at [phone] ask to have the doctor production control specialist paged. If you consider this an emergency, dial 9-1- or go to your nearest emergency department. NEED HELP? Are you dealing with a violent or abusive relationship? Are you a victim of rape or sexual assult? Call [facility] ([place]) 24 hour Crisis Hotline: 158.236.4367 or 811-638-0071. MANUAL Your Guide to a Healthy manual is now on-line. Visit [facility].org/HealthyPregnancyGuide to download your free copy documented in this encounterMadison Health01-20-2023 Miscellaneous Notes* Quick Notes - Margo Bland MD - 12/03/2022 11:56 AM EST RR- VB No. LOF No. CTXS No. Movement: present. Other c/o: some heartburn, uses tums prn w/ relief Medication list reviewed. Physical Exam See Flow Sheet Abd: soft, nontender, gravid Ext: edema: Trace A/P 24w1d Estimated Date of Delivery: 03/24/23 Low placenta, reviewed pelvic rest. Repeat US at 32 weeks vaping-d/w her cutting back or changing to gum/patches, she is considering heartburn- reviewed options for this f/u in 4 weeks for 28 week labs nausea resolved. Margo Bland M.D. documented in this encounterMadison Health01-20-2023 Instructions* Patient Instructions* Sun Walters MA - 12/03/2022 11:19 AM EST SEQUENTIAL SCREENINGS The [facility] offers sequential screenings for women who are interested in screenings for chromosomal abnormalities and certain defects during a . The sequential screen combinesultrasound and blood tests to determine the risk of chromosomal abnormalities, including Down's Syndrome (Trisomy 21) and Trisomy 18, as well as open neural tube defects including spina bifida. Ultrasound examination is performed between 11 weeks and 13 weeks gestational age. Blood tests are drawn after the ultrasound and again later in the between 15 and 21 weeks gestational age. Please let your physician know if you are interested in this testing. It will require an appointment withour dialysis technician. This is not an ultrasound performed by a physician in our office during a routine visit. SIGNS AND SYMPTOMS OF LABOR 1. Contractions every 10 minutes or more often 2. Clear, pink, or brownish fluid (water) leaking from vagina 3. Feeling that baby is pushing down, pressure 4. Low, dull backache 5. Cramps that feel like a period 6. Cramps with or without diarrhea If you notice any of the above symptoms, contact our office at [phone] and ask to speak with anurse. After hours, you can call [facility] at [phone] OR call [facility] at [phone] ask to have the doctor production control specialist paged. If you consider this an emergency, dial 9--9 or go to your nearest emergency department. NEED HELP? Are you dealing with a violent or abusive relationship? Are you a victim of rape or sexual assult? Call [facility] ([place]) 24 hour Crisis Hotline: 884.740.4753 or 074-934-1756. MANUAL Your Guide to a Healthy manual is now on-line. Visit [email or web address]/HealthyPregnancyGuide to download your free copy documented in this encounterMadison Health12-22-2022 Miscellaneous Notes* Quick Notes - Chula Lockett APRN.CNM - 11/04/2022 10:43 AM EST S: Nichol Mcelroy is a 22 year old female who presents at 20.0 weeks gestation for a routine visit. Just completed anatomy US- awaiting final results. Having a girl! Feeling better. Nausea has resolved. Positive movement. Occasional sinus headaches- discussed taking Zyrtec PO daily. C/O some sciatic pain- may try home care music therapist. Denies visual changes, chest pain, shortness of breath, vaginal bleeding, leakage of fluid, or dysuria. O: See flow sheet Gen: No apparent distress Abd: Gravid, nontender ASSESSMENT/PLAN: 1. 20 weeks gestation of - ICD9: V22.2, ICD10: Z3A.20 - URINE OB DIP B/O P: 1) PTL / Bleeding precautions reviewed and when to call 2) RTO 4 weeks or sooner if needed Chula Lockett APRN.CNM documented in this encounterMadison Health12-22-2022 Instructions* Patient Instructions* Julio Cesar Hensley Cma - 11/04/2022 10:08 AM EST SEQUENTIAL SCREENINGS The [facility] offers sequential screenings for women who are interested in screenings for chromosomal abnormalities and certain defects during a . The sequential screen combinesultrasound and blood tests to determine the risk of chromosomal abnormalities, including Down's Syndrome (Trisomy 21) and Trisomy 18, as well as open neural tube defects including spina bifida. Ultrasound examination is performed between 11 weeks and 13 weeks gestational age. Blood tests are drawn after the ultrasound and again later in the between 15 and 21 weeks gestational age. Please let your physician know if you are interested in this testing. It will require an appointment withour dialysis technician. This is not an ultrasound performed by a physician in our office during a routine visit. SIGNS AND SYMPTOMS OF LABOR 1. Contractions every 10 minutes or more often 2. Clear, pink, or brownish fluid (water) leaking from vagina 3. Feeling that baby is pushing down, pressure 4. Low, dull backache 5. Cramps that feel like a period 6. Cramps with or without diarrhea If you notice any of the above symptoms, contact our office at [phone] and ask to speak with anurse. After hours, you can call doctors registry at [phone] OR call [facility] at [phone] ask to have the doctor production control specialist paged. If you consider this an emergency, dial 2-1-9 or go to your nearest emergency department. NEED HELP? Are you dealing with a violent or abusive relationship? Are you a victim of rape or sexual assult? Call [facility] ([place]) 24 hour Crisis Hotline: 767.231.2906 or 670-408-2147. MANUAL Your Guide to a Healthy manual is now on-line. Visit [email or web address] to download your free copy documented in this encounterMadison Health11-25-2022 Miscellaneous Notes* Quick Notes - Lino Kumar MD - 10/08/2022 11:36 AM EST KJ - VB No. LOF No. CTXS No. Movement: absent. Other c/o: No. Medication list reviewed. Physical Exam See Flow Sheet Gen: no accute distress, well appearing Abd: soft, nontender, gravid A/P 16w1d Estimated Date of Delivery: 03/24/23 Schedule Anatomy US 2nd trimester screen today Decreased vaping by 80%!! Lino Kumar MD documented in this encounterMadison Health11-25-2022 Instructions* Patient Instructions* Klaudia Ly Ma - 10/08/2022 11:24 AM EST SEQUENTIAL SCREENINGS The [facility] offers sequential screenings for women who are interested in screenings for chromosomal abnormalities and certain defects during a . The sequential screen combinesultrasound and blood tests to determine the risk of chromosomal abnormalities, including Down's Syndrome (Trisomy 21) and Trisomy 18, as well as open neural tube defects including spina bifida. Ultrasound examination is performed between 11 weeks and 13 weeks gestational age. Blood tests are drawn after the ultrasound and again later in the between 15 and 21 weeks gestational age. Please let your physician know if you are interested in this testing. It will require an appointment withour dialysis technician. This is not an ultrasound performed by a physician in our office during a routine visit. SIGNS AND SYMPTOMS OF LABOR 1. Contractions every 10 minutes or more often 2. Clear, pink, or brownish fluid (water) leaking from vagina 3. Feeling that baby is pushing down, pressure 4. Low, dull backache 5. Cramps that feel like a period 6. Cramps with or without diarrhea If you notice any of the above symptoms, contact our office at [phone] and ask to speak with anurse. After hours, you can call doctors registry at [phone] OR call [facility] at [phone] ask to have the doctor production control specialist paged. If you consider this an emergency, dial 9-1-2 or go to your nearest emergency department. NEED HELP? Are you dealing with a violent or abusive relationship? Are you a victim of rape or sexual assult? Call [facility] ([facility] 24 hour Crisis Hotline: 273.691.4113 or 594-512-7098. MANUAL Your Guide to a Healthy manual is now on-line. Visit [email or web address] to download your free copy documented in this encounterMadison Health10-31-2022 Miscellaneous Notes* Telephone Encounter - Anya Robles MA - 09/13/2022 3:18 PM EDT Patient called and identified by name and date of . Nichol Mcelroy was informed of negative Sequential screen first trimester. Nichol Mcelroy was informed of her risk assessment for Trisomy 21 and 18. Based on these results Dr. Zheng s recommendation is for patient to follow-up with Sequential second trimester screening (10/06/22-10/20/22) and level II anatomy scan after 18wks. Patient verbalized understanding . Anya Robles MA documented in this encounterMadison Health10-28-2022 Miscellaneous Notes* Quick Notes - Lino Kumar MD - 09/10/2022 11:45 AM EDT KJ - VB No. LOF No. CTXS No. Movement: absent. Other c/o: nausea but is tolerating PO. Also has constipation that is a little better. Medication list reviewed. Physical Exam See Flow Sheet Gen: no accute distress, well appearing Abd: soft, nontender, gravid A/P 12w1d Estimated Date of Delivery: 03/24/23 NT today PNB today Constipation - discussed dietary measures to help Flu vaccine Lino Kumar MD documented in this encounterMadison Health10-28-2022 History of Present illness Narrative* Gilma Gallegos RN - 09/10/2022 11:26 AM EDT Patient here for First Trimester Screening. See ultrasound report for details. Options for genetic screening and diagnosis discussed with the patient. Patient opts for first trimester screening and the sequential screening protocol. Limitations of screening tests discussed withthe patient. Lino Kumar MD documented in this encounterMadison Health10-28-2022 Instructions* Patient Instructions* Klaudia Ly Ma - 09/10/2022 11:26 AM EDT SEQUENTIAL TESTING PROCESS Sequential Screen First Trimester Today you are currently: 12w1d weeks 09/10/2022: Ultrasound and blood test. Sequential Screen Second Trimester (16-17 Weeks Gestation) When you are called with your results, the nurse will give the optimal draw dates for the Sequential screen second trimester. Blood testing can be done at any [facility] lab. Please report to the any retail assistant store manager office front desk manager for the Sequential Part 2 requisition and order before reporting to the lab. Your weight will need to be documented for testing. Please note: -No appointment is need for your second blood draw. -Office hours are 8 am to 4:30 pm. -Please have testing done prior to 12 noon on Tuesday's -Once the sequential testing is started, in the first trimester the only follow- up will be for the sequential screen second trimester. Please don't have a Quad screen ordered by another provider. If you or your Provider have any questions please call your maternal medicine office, for east side please call [phone] or for the West side call [phone] and ask for the the nurse. Thank you. SEQUENTIAL SCREENINGS The [facility] offers sequential screenings for women who are interested in screenings for chromosomal abnormalities and certain defects during a . The sequential screen combinesultrasound and blood tests to determine the risk of chromosomal abnormalities, including Down's Syndrome (Trisomy 21) and Trisomy 18, as well as open neural tube defects including spina bifida. Ultrasound examination is performed between 11 weeks and 13 weeks gestational age. Blood tests are drawn after the ultrasound and again later in the between 15 and 21 weeks gestational age. Please let your physician know if you are interested in this testing. It will require an appointment withour dialysis technician. This is not an ultrasound performed by a physician in our office during a routine visit. SIGNS AND SYMPTOMS OF LABOR 1. Contractions every 10 minutes or more often 2. Clear, pink, or brownish fluid (water) leaking from vagina 3. Feeling that baby is pushing down, pressure 4. Low, dull backache 5. Cramps that feel like a period 6. Cramps with or without diarrhea If you notice any of the above symptoms, contact our office at [phone] and ask to speak with anurse. After hours, you can call doctors registry at [phone] OR call [facility] at [phone] ask to have the doctor production control specialist paged. If you consider this an emergency, dial or go to your nearest emergency department. NEED HELP? Are you dealing with a violent or abusive relationship? Are you a victim of rape or sexual assult? Call [facility] ([place]) 24 hour Crisis Hotline: 537.760.5430 or 720-832-7812. MANUAL Your Guide to a Healthy manual is now on-line. Visit [email or web address] to download your free copy documented in this encounterMadison Health10-06-2022 Miscellaneous Notes* Telephone Encounter - Gilma Gallegos RN - 08/19/2022 2:37 PM EDT Patient notified and voiced understanding. The following approved medications have been transmitted electronically. Requested Prescriptions Signed Prescriptions Disp Refills ondansetron (ZOFRAN) 4 mg tablet 30 tablet 1 Sig: Take 1 tablet by mouth every 8 hours as needed for nausea/vomiting. Authorizing Provider: CHULA LOCKETT Pharmacy Information Pharmacy Address [id number] [place] [id number] Gimla Gallegos RN * Telephone Encounter - Chula Lockett APRN.CNM - 08/19/2022 12:40 PM EDT I am going to send in Rx for Zofran 4 mg PO every 8 hours as needed for N/V. Please notify patient.Chula Lockett APRN.CNM * Telephone Encounter - Gilma Gallegos RN - 08/19/2022 11:19 AM EDT Patient 9w0d calling with complaints of constant nausea and vomiting. Per patient she has not been able to keep any fluids or food down for greater than 24 hours. Per patient she feels very weak, shaky and feels that heart is racing. Patient had been using Vitamin B6 and Unisom for nausea without success. Patient instructed to go to ER for IV hydration. Patient is going to go to nearest ER to her in [place]. Patient last seen 08/13 for NEW OB, next appointment is not until 09/10. Do you want patient scheduled for N/V follow up? Gilma Gallegos RN documented in this encounterMadison Health09-30-2022 Miscellaneous Notes* Quick Notes - Tennille Jacinto MD - 08/13/2022 11:12 AM EDT DM- new ob. NT ordered. Declined flu today but will get at later date. Reviewed covid vaccine in and recommend to receive it. RTO 4 wks. Tennille Avelar MD documented in this encounterMadison Health09-30-2022 History of Present illness Narrative* Tennille Jacinto MD - 08/13/2022 10:03 AM EDT INITIAL OB ASSESSMENT OB Provider: Tennille Jacinto MD HPI: Nichol Mcelroy is a 22 year old female here to establish Obstetrical Care. Patient's last menstrual period was 06/17/2022 (exact date). from OB Dating Form. Cycle length: 28 days Complaints: nausea and vomiting was unplanned but accepted. OB History T0 L0 SAB0 IAB0 Ectopic0 Multiple0 Live Births0 Prior : never History of 4th degree laceration: No Patient's Risk Screening for delivery: History of abnormal pap: No Prior treatment for cervical dysplasia: none. History of STDs: None Tobacco use: Yes Caffeine use: Yes Drug use: No Alcohol use: No Multivitamin with Folic acid: No Occupation: [email or web address] or heritage: No Would refuse blood transfusion if medically necessary: No BMI 23.65 kg/(m^2) Patient BMI over 30? 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 SERTRALINE HCL (ZOLOFT ORAL) Take by mouth. HYDROXYZINE PAMOATE (VISTARIL ORAL) Take by mouth. No current facility-administered medications on file prior to visit. Review of Systems: GENERAL: Negative for: Fever or Chills HEENT: Negative for: Headache, Impaired Vision, Ringing in Ears, Nosebleeds NECK: Negative for: Swelling, Pain, Stiffness RESPIRATORY: Negative for: Cough, Shortness of breath, Wheezing GASTROINTESTINAL: Negative for: Heartburn, Constipation, Diarrhea, Blood in stool, Vomiting MUSCULOSKELETAL: Negative for: Muscle or joint pain, stiffness, Joint swelling NEUROLOGIC/PSYCHIATRIC: H/o depression but doing well without meds SKIN: Negative for: Rash, Itching GENITOURINARY: Negative for: vaginal itching, vaginal discharge, hematuria or dysuria PHYSICAL EXAM: BP 100/66 Ht 5' 7 (1.70m) Wt 151 lb (68.5kg) LMP 06/17/2022 BMI 23.64 kg/(m^2). GENERAL: pleasant female in no apparent distress DERMATOLOGY: Normal, without lesions, non-icteric, and non-hirsute NECK: Supple, full range of motion, no adenopathy, and thyroid normal BREAST: soft, non-tender, symmetric, no dominant mass, normal nipple-areolar complex, no lymphadenopathy, and no nipple discharge ABDOMEN: soft, non-tender, and no masses NEURO: alert and oriented x3,exam grossly non-focal PELVIS: External genitalia normal without lesions. Perineal body intact. No vaginal or cervical lesions. Cervix closed. Uterus 8 week size. No adnexal masses or tenderness. Clinical Pelvimetry: Pelvimetry clinically assessed as adequate Limited OB ultrasound exam: single intrauterine and positive cardiac activity OB Risk Screening: Completed, no positive findings documented. ASSESSMENT: 22 year old at 8.3 wks gestational age PLAN: 1) Patient oriented to practice. Discussed nutrition, folic acid supplementation, dietary guidelines, exercise, smoking, alcohol, caffeine, and drug use. Discussed routine OB labs including STD/HIV. Discussed aneuploidy screening options including serum screening and nuchal translucency. 2) pap today 3) declines flu today- will get next visit if not sooner with pcp 4) NT ordered Follow up in 4 weeks or sooner prn. Tennille Avelar MD documented in this encounterMadison Health09-30-2022 Instructions* Patient Instructions* Azael Zimmerman Ma - 08/13/2022 10:03 AM EDT Please select the following link to access the [facility] Your Guide to a Healthy . [email or web address] documented in this encounterMadison Health09-29-2022 Miscellaneous Notes* Quick Notes - Kateryna Dyer RN - 08/12/2022 3:35 PM EDT DISTANCE HEALTH VISIT This Team Access Model visit is a phone encounter. It required patient-provider interaction for themedical decision making as documented below. Father of the baby involved.Patient is complaining of nausea and occasional vomiting in . Dietary considerations discussed . Vitamin B6 recommended. Advised patient to call/come in if she is unable to keep any food or fluids down in a 24-hour period. Pt has a history of d anxiety/epression diagnosed at age 13 and most recently treated by Pat Giraldo NP in [facility]. She has been off medication for 1 year. She believes she is doing well off medication. Discussed increased risks of depression during and and importance of reporting the development or worsening of symptoms should they occur. Patient is currentlyvaping nicotine. I have advised her of the risks of vaping during and recommended that she quit. Patient considering aneuploidy screening. I have given her contact information for [facility] to check on insurance coverage. Patient declined genetic carrier screening testing.Kateryna Dyer RN documented in this encounterMadison Health09-15-2022 Miscellaneous Notes* Telephone Encounter - Roselia Ku RN - 07/29/2022 10:08 AM EDT PNOB scheduled. Roselia Ku RN * Telephone Encounter - Kateryna Dyer RN - 07/27/2022 2:02 PM EDT Left message for patient to return phone call. Patient has an appointment with Dr Jacinto for NOB appointment. Please schedule PNOB appointment. documented in this encounterMadison Health02-25-2022 Instructions* Patient Instructions* Soni Granados DO - 01/08/2022 5:54 PM EST Wean yourself from the splint as tolerated. Recommended ice regimen is ice immersion (as we discussed) for 10 minutes at a time 3 times daily for 2 to 3 days. You may take ibuprofen as needed for pain. Contact your physician in 7 to 10 days if still having significant symptoms. * Attachments The following attachments cannot be sent through Care Everywhere. * Contusion: Hand (Ecuadorean) documented in this [id number] History of Present illness Narrative* Soni Granados DO - 01/08/2022 5:08 PM EST PATIENT NAME: [facility] URGENT CARE: [address] [facility] [id number] DATE OF VISIT: 01/08/2022 DATE OF : 2000 SS: [id number] PROVIDER: Soni Granados DO SUBJECTIVE 21 y.o. female to the clinic for complaint of Chief Complaint Patient presents with Arm Injury Reports slipping on ice today, caught herself with right arm and reports LOC but did not hit head. Having right arm pain HPI: Slipped on ice today. Extended right upper extremity and impacted thenar eminence and radial aspectof wrist on the pavement. Small abrasion close to the elbow also. No significant pain or injury there. The only significant pain is near the thenar eminence. ROS: Musculoskeletal: See HPI above. Skin: Superficial epidermal abrasion of right proximal forearm. No other skin injury. Neurological: Denies headache. Denies striking head. Denies focal neuro symptoms. Social History Socioeconomic History Marital status: Single Tobacco Use Smoking status: Never Smoker Smokeless tobacco: Never Used Vaping Use Vaping Use: Every day Substances: Nicotine Substance and Sexual Activity Alcohol use: Not Currently Drug use: Not Currently Past Medical History: Diagnosis Date Orthostatic hypotension History reviewed. No pertinent family history. No current outpatient medications on file prior to visit. No current facility-administered medications on file prior to visit. No Known Allergies EXAM: BP 122/83 (BP Location: Left arm, Patient Position: Sitting, BP Cuff Size: Adult) Pulse (!) 118 Comment: recheck. pt states normal for her CLG Temp 98.7 F (37.1 C) (Temporal) Resp 16 Ht 5' 7 Wt 68 kg (150 lb) SpO2 99% BMI 23.49 kg/m Constitutional: Vital signs reviewed. Well-appearing. No distress. Psychiatric: Mental status is appropriate. Normal affect. Skin: Warm and dry. No rash noted. Eyes: Conjunctiva clear. No photophobia. HENT: Grossly atraumatic. Thorax/ Respiratory: Respiratory effort non-labored. Speaks in full sentences without dyspnea. Cardiovascular: Good peripheral circulation. Musculoskeletal: No gross deformity. Tenderness in the right upper extremity is limited to the thenar eminence and the carpal bones just proximal to the base of the thenar eminence. There is no snuffbox tenderness no tenderness in the radius and ulna. Elbow functions normally. Is nontender and has full range of motion. No evidence of injury in the arm or shoulder. Neck has normal ROM without hesit ation or pain response. Neurologic: Alert and appropriately conversant. No ataxia. No dysarthria. No gross facial motor asymmetry. Cutaneous sensation is intact in radial, ulnar and median nerve distributions. PROCEDURE Procedures RESULTS No results found for this or any previous visit (from the past 168 hour(s)). Diagnosis: The encounter diagnosis was Contusion of right hand, initial encounter. Plan: 1. Contusion of right hand, initial encounter XR Hand Right 3+ Views (Standard) Thumb spica splint No follow-ups on file. ADDITIONAL CLINICAL COMMENTS / MEDICAL DECISION MAKING / PLAN: X-ray series of right hand, 3 views, per my interpretation without radiologic consultation showed no evidence of fracture or subluxation. An adjustable Velcro thumb spica splint was applied and dispensed. Recommended weaning from the splint as tolerated after few days. Discussed other elements of conservative treatment including rest and elevation. Discussed ice regimen. Advised her she could take ibuprofen if needed. Follow-up with primary care physician in 7 to 10 days if still significantly painful. ORDERS PLACED THIS VISIT Orders Placed This Encounter Procedures Thumb spica splint XR Hand Right 3+ Views (Standard) MEDICATION LIST AT END OF VISIT No current outpatient medications on file. No current facility-administered medications for this visit. Soni Granados documented in this encounterThe [facility]* Diagnosis Contusion of right hand, initial encounter- Primary documented in this encounter [facility] note* Diagnosis Supervision of normal first , antepartum- Primary Nausea and vomiting during History of depression Personal history of other mental disorder Engages in nicotine containing substance vaping documented in this encounter [facility] note* Diagnosis Encounter for supervision of normal first in first trimester- Primary Supervision of normal first Maternal tobacco use in first trimester Encounter for screening for malignant neoplasm of cervix Screening for malignant neoplasm of the cervix [facility] Diagnosis Encounter for (NT) nuchal translucency scan- Primary Other specified screening 12 weeks gestation of state, incidental documented in this encounter [facility] note* Diagnosis Encounter for screening for nuchal translucency- Primary Encounter for supervision of normal first in first trimester Supervision of normal first 12 weeks gestation of state, incidental Need for influenza vaccination Need for prophylactic vaccination and inoculation against influenza documented in this encounter [facility] note* Diagnosis Encounter for supervision of normal first in second trimester- Primary Supervision of normal first 16 weeks gestation of state, incidental documented in this encounter [facility]* Diagnosis 20 weeks gestation of - Primary state, incidental [facility]* Diagnosis Encounter for anatomic survey- Primary 20 weeks gestation of state, incidental documented [facility] encounter [facility]* Diagnosis 24 weeks gestation of - Primary state, incidental Encounter for supervision of normal first in second trimester Supervision of normal first Low lying placenta nos or without hemorrhage, second trimester Heartburn during , antepartum, second trimester documented in this encounter [facility]* Diagnosis 28 weeks gestation of - Primary state, incidental Need for vaccination Need for prophylactic vaccination and inoculation against unspecified single disease Low lying placenta nos or without hemorrhage, second trimester Vapes nicotine containing substance documented in this encounter [facility]* Diagnosis 30 weeks gestation of - Primary state, incidental [facility] Diagnosis Suspected placental problem not found- Primary 32 weeks gestation of state, incidental Anemia during in third trimester [facility]* Diagnosis 32 weeks gestation of - Primary state, incidental Mood changes Unspecified episodic mood disorder Anxiety neurosis Anxiety state, unspecified History of panic attacks Low-lying placenta Hemorrhage from placenta previa, unspecified as to episode of care [facility]* Diagnosis Anemia during in third trimester- Primary 34 weeks gestation of state, incidental [facility]* Diagnosis Uterine size-date discrepancy, third trimester- Primary 35 weeks gestation of state, incidental [facility]* Diagnosis Anemia during in third trimester- Primary 35 weeks gestation of state, incidental Uterine size-date discrepancy, third trimester Vaginal irritation Unspecified noninflammatory disorder of vagina [facility] this [facility]* Diagnosis Anemia during in third trimester- Primary 36 weeks gestation of state, incidental [facility]No [facility] Work [facility]: [facility]* Diagnosis 38 weeks gestation of - Primary state, incidental [facility]* Diagnosis Anemia during in third trimester- Primary Positive GBS test 39 weeks gestation of state, incidental [facility]* Diagnosis Onset Date Resolution Status 39 weeks gestation of acute (spontaneous vaginal delivery) [facility] Work Phone: Evaluation note* Diagnosis Moderate anxiety- Primary documented in this encounter [facility] Work Phone: Evaluation note* Diagnosis Upper respiratory tract infection, unspecified type- Primary documented in this encounter [facility] Work Phone: Evaluation note* Diagnosis Urticaria- Primary Unspecified urticaria documented in this encounter [facility] Work Phone: Evaluation note* Diagnosis Vomiting and diarrhea- Primary Dehydration documented in this encounter [facility] Work Phone: Evaluation note* Diagnosis Encounter for gynecological examination (general) (routine) without abnormal findings- Primary Unprotected sexual intercourse Problems related to high-risk sexual behavior Vaginal discharge Leukorrhea, not specified as infective [facility]* Diagnosis Moderate anxiety- Primary BMI 21.0-21.9, adult- Primary Moderate anxiety Closed head injury, initial encounter- Primary Closed fracture of nasal bone, initial encounter documented in this encounter [facility] Work Phone: Evaluation note* Diagnosis Moderate anxiety- Primary BMI 21.0-21.9, adult- Primary Moderate anxiety Closed fracture of nasal bone with routine healing, subsequent encounter- Primary Dysuria BMI 21.0-21.9, adult documented in this encounter [facility] Work Phone: Evaluation note* Diagnosis Moderate anxiety- Primary BMI 21.0-21.9, adult- Primary Moderate anxiety Acute upper respiratory infection- Primary Acute upper respiratory infections of unspecified site documented in this encounter [facility] Work Phone: Evaluation note* Diagnosis Moderate anxiety- Primary BMI 21.0-21.9, adult- Primary Moderate anxiety Nonspecific syndrome suggestive of viral illness- Primary Pharyngitis, unspecified etiology documented in this encounter [facility] Work Phone: Evaluation note* Diagnosis Moderate anxiety- Primary BMI 21.0-21.9, adult- Primary Moderate anxiety Right otitis media, unspecified otitis media type- Primary Acute otitis externa of right ear, unspecified type documented in this encounter [facility] Work Phone: Evaluation note* Diagnosis with uncertain dates, antepartum (HCC)- Primary state, incidental 7 weeks gestation of ([facility]) state, incidental Screening for cervical cancer Screening for malignant neoplasm of the cervix Screening for human papillomavirus (HPV) Special screening examination for human papillomavirus (HPV) Nausea and vomiting during ([facility]) History of depression Encounter for supervision of normal in multigravida in first trimester ([facility]) Engages in nicotine containing substance vaping Anxiety Anxiety state, unspecified [facility]* Diagnosis Encounter for screening for malformation using ultrasound ([facility])- Primary with uncertain dates, antepartum ([facility]) state, incidental Increased nuchal translucency space on ultrasound Abnormal findings on screening 13 weeks gestation of ([facility]) state, incidental 13 weeks gestation of ([facility])- Primary state, incidental Encounter for supervision of normal in multigravida in first trimester ([facility]) Nuchal fold thickening on ultrasound [facility]* Diagnosis 13 weeks gestation of ([facility])- Primary state, incidental Encounter for supervision of normal in multigravida in first trimester ([facility]) Nuchal fold thickening on ultrasound * Assessment & Plan Note - Lino Kumar MD - 05/30/2025 2:18 PM EDTAssociated Problem(s): Encounter for supervision of normal in multigravida in first trimester ([facility]) * Assessment & Plan Note - Lino Kumar MD - 05/30/2025 2:18 PM EDTAssociated Problem(s): Nuchal fold thickening on ultrasound Orders: CONSULT TO MEDICAL GENETICS - ; Future [id number] PLUS; Future [facility]* Diagnosis 13 weeks gestation of (HCC)- Primary state, incidental Encounter for supervision of normal in multigravida in first trimester ([facility]) Nuchal fold thickening on ultrasound Nuchal fold thickening on ultrasound- Primary [facility]* Diagnosis 13 weeks gestation of ([facility])- Primary state, incidental Encounter for supervision of normal in multigravida in first trimester ([facility]) Nuchal fold thickening on ultrasound Increased nuchal translucency space on ultrasound- Primary Abnormal findings on screening documented [facility]* Diagnosis 13 weeks gestation of ([facility])- Primary state, incidental Encounter for supervision of normal in multigravida in first trimester (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) state, incidental [facility]* Diagnosis 13 weeks gestation of ([facility])- Primary state, incidental Encounter for supervision of normal in multigravida in first trimester ([facility]) Nuchal fold thickening on ultrasound Abnormal genetic test in - Primary Abnormal findings on screening Increased nuchal translucency space on ultrasound Abnormal findings on screening [facility] Diagnosis 13 weeks gestation of ([facility])- Primary state, incidental Encounter for supervision of normal in multigravida in first trimester (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)- Primary documented [facility] this [facility]* Diagnosis 13 weeks gestation of ([facility])- Primary state, incidental Encounter for supervision of normal in multigravida in first trimester ([facility]) Nuchal fold thickening on ultrasound Family history of spina bifida Family history of congenital anomalies Supervision of high risk , antepartum ([facility]) [facility]* Diagnosis 13 weeks gestation of ([facility])- Primary state, incidental Encounter for supervision of normal in multigravida in first trimester (HCC) Nuchal fold thickening on ultrasound abnormality affecting management of mother, single or unspecified fetus (HCC)- Primary [facility]* Diagnosis Moderate anxiety- Primary BMI 21.0-21.9, adult- Primary Moderate anxiety Right wrist pain- Primary Pain in joint, forearm Hemorrhoids, unspecified hemorrhoid type BMI 27.0-27.9,adult documented in this encounter [facility] Work Phone: History of Present illness NarrativeShe presents today for follow-up on control. She has been off of it for couple months. She would like to get back on it. She is also struggling with her anxiety. She stopped taking anxiety medications as she felt they were not working the way she wanted. Her JAME-7 score was a 16. PHQ-9 is in the mild depression range. She is not sure if she was on Lexapro in the past but she is willing to try it. She also has trouble with sleeping and the hydroxyzine was not helpful in the past. She notesthat her grandma takes this, but for her did not seem to work. Her mother and her sister both suffer with anxiety. When she was younger she was in counseling and saw psychologist regularly. She was on multiple medications. She has some thyroid nodules and she is due for follow-up on that. She is also been having some frequency and burning with urination for a week. She was having some back pain she started drinking more water and it seems to be getting better.- [facility] Work Phone: History of Present illness NarrativeShe presents today for follow-up on control. She has been off of it for couple months. She would like to get back on it. She is also struggling with her anxiety. She stopped taking anxiety medications as she felt they were not working the way she wanted. Her JAME-7 score was a 16. PHQ-9 is in the mild depression range. She is not sure if she was on Lexapro in the past but she is willing to try it. She also has trouble with sleeping and the hydroxyzine was not helpful in the past. She notesthat her grandma takes this, but for her did not seem to work. Her mother and her sister both suffer with anxiety. When she was younger she was in counseling and saw psychologist regularly. She was on multiple medications. She has some thyroid nodules and she is due for follow-up on that. She is also been having some frequency and burning with urination for a week. She was having some back pain she started drinking more water and it seems to be getting better.[facility] Work Phone: Hospital Discharge instructions* Attachments The following attachments cannot be sent through Care Everywhere. * Nausea and Vomiting, Adult ED (Ecuadorean) * Diarrhea, Adult ED (Ecuadorean) [facility]* Attachments The following attachments cannot be sent through Care Everywhere. * Nose Fracture Discharge Instructions (Ecuadorean) * Minor Head Injury, Adult ED ([place]cuadorean) [facility]charge instructions* Attachments The following attachments cannot be sent through Care Everywhere. * _Otitis Externa, [facility] ([place]cuadorean) * _Otitis Media, [facility] ([place]) [facility]: Reason for referral (narrative)* Diagnostic Procedure Only (Routine) - Authorized Specialty Diagnoses / Procedures Referred By Kathie watkins [place]erred To Contact [facility] [place] Encounter for supervision of normal first in first trimester Maternal tobacco use in first trimester Procedures NUCHAL TRANSLUCENCY WHI US NUCHAL TRANSLUCENCY 1ST GESTATION Tennille Irvin MD [address] [place] [address] [address] Referral ID Status Reason Start Date Expiration Date Visits Requested Visits Authorized [id number] Authorized Auto-Generat ed Referral 08/13/2022 08/13/2023 1 1 * Diagnostic Procedure Only (Routine) - Pending Review Specialty Diagnoses / Procedures Referred By Kathie watkins Referred To Contact [facility] [place] Encounter for supervision of normal first in first trimester Maternal tobacco use in first trimester Procedures OBSTETRIC ULTRASOUND WHI US PREG UTERUS AFTER 1ST TRIMEST GESTATION Tennille Irvin MD [address] [place] [address] [facility] [address] [place] [id number] Referral ID Status Reason Start Date Expiration Date Visits Requested Visits Authorized [id number] Pending Review Auto-Generat ed Referral 08/13/2022 08/13/2023 1 1 [facility] for referral (narrative)* Diagnostic Procedure Only (Routine) - Authorized Specialty Diagnoses / Procedures Referred By Contac t Referred To Contact [facility] [place]oses 28 weeks gestation of Procedures OBSTETRIC ULTRASOUND WHI US PREG UTERUS AFTER 1ST TRIMEST GESTATION Chula Lockett APRN.CNM [address] [place] [address] [facility] [address] [place] [address] Referral ID Status Reason Start Date Expiration Date Visits Requested Visits Authorized [id number] Authorized Auto-Generat ed Referral 12/31/2022 12/31/2023 1 1 [facility] for referral (narrative)* Diagnostic Procedure Only (Routine) - Closed Specialty Diagnoses / Procedures Referred By Contac t Referred To Contact [facility] [place] Diagnoses 35 weeks gestation of Uterine size-date discrepancy, third trimester Procedures OBSTETRIC ULTRASOUND WHI US PREG UTERUS AFTER 1ST TRIMEST GESTATION Lino Kumar MD [address] [place] [address] [facility] [address] [place] [address] Referral ID Status Reason Start Date Expiration Date V isits Requested Visits Authorized [id number] Closed Auto-Generate d Referral 02/22/2023 02/22/[address] [facility] for referral (narrative)* Consultation (Routine) - Authorized Specialty Diagnoses / Procedures Referred By Kathie watkins Referred To Contact Otolaryngology Diagnoses Closed fracture of nasal bone with routine healing, subsequent encounter Cally Hedrick, [employer] [address] [address] Referral ID Status Reason Start Date Expiration Date Visits Requested Visits Authorized [id number] Authorized Specialty Services Required 07/17/2024 07/17/2025 1 1 Electronically signed by 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 at 07/17/2024 10:19 AM EDT [facility] Work Phone: Summary Purpose Family History No Family History Records FoundUnknown Family Member Name Dates Details Family history of malignant neoplasm(V16.9, Z80.9) Comments:Other Status:Active cousin Name Dates Details Family history of Vasovagal syncope(780.2, R55) Status:Active great grandmother Name Dates Details Family history of atrial fib rillation(V17.49, Z82.49) Status:Active Grandparent Name Dates Details Family history of malignant neoplasm(V16.9, Z80.9) Status:Active Family history of dementia(V 17.2, Z81.8) Status:Active Mother Name Dates Details Family history of Anxiety(30 0.00, F41.9) Status:Active Family history of Panic loan ck(300.01, F41.0) Status:Active Sister Name Dates Details Family history of Anxiety(30 0.00, F41.9) Status:Active Family history of Panic loan ck(300.01, F41.0) Status:Active Brother Name Dates Details Family history of asthma(V17 .5, Z82.5) Status:Active Unknown Family Member Name Dates Details Family history of malignant neoplasm(V16.9, Z80.9) Comments:Other Status:Active cousin Name Dates Details Family history of Vasovagal syncope(780.2, R55) Status:Active great grandmother Name Dates Details Family history of atrial fib rillation(V17.49, Z82.49) Status:Active Grandparent Name Dates Details Family history of malignant neoplasm(V16.9, Z80.9) Status:Active Family history of dementia(V 17.2, Z81.8) Status:Active Mother Name Dates Details Family history of Anxiety(30 0.00, F41.9) Status:Active Family history of Panic loan ck(300.01, F41.0) Status:Active Sister Name Dates Details Family history of Anxiety(30 0.00, F41.9) Status:Active Family history of Panic loan ck(300.01, F41.0) Status:Active Brother Name Dates Details Family history of asthma(V17 .5, Z82.5) Status:Active Unknown Family Member Name Dates Details Family history of malignant neoplasm: Other, Grandparent(V16.9, Z80.9) Status:Active Family history of dementia: Grandparent(V17.2, Z81.8) Status:Active Family history of asthma: Br other(V17.5, Z82.5) Status:Active Anxiety: Mother, Sister Status:Active Panic attack: Mother, Sister Status:Active Vasovagal syncope: Paternal Cousin Status:Active Family history of atrial fib rillation: Maternal Great Grandmother(V17.49, Z82.49) Status:Active Denies Family history of marie den cardiac (SCD): Maternal Relatives, Paternal Relatives(V17.41, Z82.41) Status: Denies Genetic syndrome: Mat ernal Relatives, Paternal Relatives Status: Denies Family history of con nective tissue disease: Maternal Relatives, Paternal Relatives(V19.8, Z82.69) Status: Denies Family history of con genital heart disease: Maternal Relatives, Paternal Relatives(V19.5, Z82.79) Status: Unknown Family Member Name Dates Details Denies Family history of con genital heart disease: Maternal Relatives, Paternal Relatives(V19.5, Z82.79) Status: Denies Family history of con nective tissue disease: Maternal Relatives, Paternal Relatives(V19.8, Z82.69) Status: Denies Genetic syndrome: Mat ernal Relatives, Paternal Relatives Status: Denies Family history of marie den cardiac (SCD): Maternal Relatives, Paternal Relatives(V17.41, Z82.41) Status: Family history of atrial fib rillation: Maternal Great Grandmother(V17.49, Z82.49) Status:Active Vasovagal syncope: Paternal Cousin Status:Active Family history of malignant neoplasm: Other, Grandparent(V16.9, Z80.9) Status:Active Family history of dementia: Grandparent(V17.2, Z81.8) Status:Active Family history of asthma: Br other(V17.5, Z82.5) Status:Active Anxiety: Mother, Sister Status:Active Panic attack: Mother, Sister Status:Active Unknown Family Member Name Dates Details Denies Family history of con genital heart disease: Maternal Relatives, Paternal Relatives(V19.5, Z82.79) Status: Denies Family history of con nective tissue disease: Maternal Relatives, Paternal Relatives(V19.8, Z82.69) Status: Denies Genetic syndrome: Mat ernal Relatives, Paternal Relatives Status: Denies Family history of marie den cardiac (SCD): Maternal Relatives, Paternal Relatives(V17.41, Z82.41) Status: Family history of atrial fib rillation: Maternal Great Grandmother(V17.49, Z82.49) Status:Active Vasovagal syncope: Paternal Cousin Status:Active Family history of malignant neoplasm: Other, Grandparent(V16.9, Z80.9) Status:Active Family history of dementia: Grandparent(V17.2, Z81.8) Status:Active Family history of asthma: Br other(V17.5, Z82.5) Status:Active Anxiety: Mother, Sister Status:Active Panic attack: Mother, Sister Status:Active Unknown Family Member Name Dates Details Family history of malignant neoplasm: Other, Grandparent(V16.9, Z80.9) Status:Active Family history of dementia: Grandparent(V17.2, Z81.8) Status:Active Family history of asthma: Br other(V17.5, Z82.5) Status:Active Anxiety: Mother, Sister Status:Active Panic attack: Mother, Sister Status:Active Vasovagal syncope: Paternal Cousin Status:Active Family history of atrial fib rillation: Maternal Great Grandmother(V17.49, Z82.49) Status:Active Denies Family history of marie den cardiac (SCD): Maternal Relatives, Paternal Relatives(V17.41, Z82.41) Status: Denies Genetic syndrome: Mat ernal Relatives, Paternal Relatives Status: Denies Family history of con nective tissue disease: Maternal Relatives, Paternal Relatives(V19.8, Z82.69) Status: Denies Family history of con genital heart disease: Maternal Relatives, Paternal Relatives(V19.5, Z82.79) Status: Unknown Family Member Name Dates Details Family history of malignant neoplasm: Other, Grandparent(V16.9, Z80.9) Status:Active Family history of dementia: Grandparent(V17.2, Z81.8) Status:Active Family history of asthma: Br other(V17.5, Z82.5) Status:Active Anxiety: Mother, Sister Status:Active Panic attack: Mother, Sister Status:Active Vasovagal syncope: Paternal Cousin Status:Active Family history of atrial fib rillation: Maternal Great Grandmother(V17.49, Z82.49) Status:Active Denies Family history of marie den cardiac (SCD): Maternal Relatives, Paternal Relatives(V17.41, Z82.41) Status: Denies Genetic syndrome: Mat ernal Relatives, Paternal Relatives Status: Denies Family history of con nective tissue disease: Maternal Relatives, Paternal Relatives(V19.8, Z82.69) Status: Denies Family history of con genital heart disease: Maternal Relatives, Paternal Relatives(V19.5, Z82.79) Status: Unknown Family Member Name Dates Details Family history of dementia: Grandparent(V17.2, Z81.8) Status:Active Family history of asthma: Br other(V17.5, Z82.5) Status:Active Anxiety: Mother, Sister Status:Active Panic attack: Mother, Sister Status:Active Vasovagal syncope: Paternal Cousin Status:Active Family history of atrial fib rillation: Maternal Great Grandmother(V17.49, Z82.49) Status:Active Denies Family history of marie den cardiac (SCD): Maternal Relatives, Paternal Relatives(V17.41, Z82.41) Status: Denies Genetic syndrome: Mat ernal Relatives, Paternal Relatives Status: Denies Family history of con nective tissue disease: Maternal Relatives, Paternal Relatives(V19.8, Z82.69) Status: Denies Family history of con genital heart disease: Maternal Relatives, Paternal Relatives(V19.5, Z82.79) Status: Family history of malignant neoplasm: Other, Grandparent(V16.9, Z80.9) Status:Active Advance Directives No Advanced Directives Records FoundDocuments on File Type Date Recorded 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 Health Concerns Problem Noted Date OB Reminders 08/13/2022 Problem Noted Date OB Reminders 08/13/2022 Problem Noted Date OB Reminders 08/13/2022 Problem Noted Date OB Reminders 08/13/2022 Problem Noted Date OB Reminders 08/13/2022 Problem Noted Date OB Reminders 08/13/2022 Problem Noted Date OB Reminders 08/13/2022 Problem Noted Date OB Reminders 08/13/2022 Problem Noted Date OB Reminders 08/13/2022 Problem Noted Date OB Reminders 08/13/2022 Problem Noted Date OB Reminders 08/13/2022 Problem Noted Date OB Reminders 08/13/2022 Problem Noted Date OB Reminders 08/13/2022 Problem Noted Date OB Reminders 08/13/2022 Chief Complaint and Reason for Visit Chief Complaint VENOFER 200MG Chief Complaint VENOFER 200MG VENOFER 200MG Chief Complaint VENOFER 200MG VENOFER 200MG VENOFER 200MG Chief Complaint VENOFER 200MG VENOFER 200MG VENOFER 200MG VENOFER 200MG Chief Complaint VENOFER 200MG VENOFER 200MG VENOFER 200MG VENOFER 200MG LABOR AND DELIVERY/VAGINAL DELIVERY Reason for Visit 39 weeks gestation o f (spontaneous vaginal delivery) Additional Source Comments INFORMATION SOURCE (unrecogn ized section and content) DATE CREATED AUTHOR 02/15/2019 [facility] DATE CREATED AUTHOR AUTHOR'S ORGANIZ ATION 01/12/2022 [facility] DATE CREATED AUTHOR AUTHOR'S ORGANIZ ATION 07/08/2022 [facility] DATE CREATED AUTHOR AUTHOR'S ORGANIZ ATION 07/17/2022 [facility] DATE CREATED AUTHOR AUTHOR'S ORGANIZ ATION 03/25/2023 [facility] DATE CREATED AUTHOR AUTHOR'S ORGANIZ ATION 06/13/2023 [facility] DATE CREATED AUTHOR AUTHOR'S ORGANIZ ATION 09/05/2023 [facility] DATE CREATED AUTHOR AUTHOR'S ORGANIZ ATION 12/12/2023 [facility] DATE CREATED AUTHOR AUTHOR'S ORGANIZ ATION 04/16/2025 [facility] DATE CREATED AUTHOR AUTHOR'S ORGANIZ ATION 06/29/2025 [facility] DATE CREATED AUTHOR AUTHOR'S ORGANIZ ATION 09/07/2025 [facility] DATE CREATED AUTHOR AUTHOR'S ORGANIZ ATION 09/17/2025 [facility] <item><item><item><item><item> Privacy Markings (unrecogniz ed section and content) Section Author: Migdalia Garcia PROHIBITION ON REDISCLOSURE OF CONFIDENTIAL INFORMATION This notice accompanies a disclosure of information concerning a client made to you with the consent of such client. Section Author: Migdalia Garcia PROHIBITION ON REDISCLOSURE OF CONFIDENTIAL INFORMATION This notice accompanies a disclosure of information concerning a client made to you with the consent of such client. Section Author: Migdalia Garcia PROHIBITION ON REDISCLOSURE OF CONFIDENTIAL INFORMATION This notice accompanies a disclosure of information concerning a client made to you with the consent of such client. Section Author: Migdalia Garcia PROHIBITION ON REDISCLOSURE OF CONFIDENTIAL INFORMATION This notice accompanies a disclosure of information concerning a client made to you with the consent of such client. Section Author: Migdalia Garcia PROHIBITION ON REDISCLOSURE OF CONFIDENTIAL INFORMATION This notice accompanies a disclosure of information concerning a client made to you with the consent of such client. Reason for Visit (unrecogniz ed section and content) Reason Comments Arm Injury Reports slipping on ice today, caught herself with right arm and reports LOC but did not hit head. Having right arm pain Reason Comments Future Appointment Reason Comments Care Reason Comments Initial OB Visit Reason Comments Nausea & Vomiting Reason Comments US Specialty Diagnoses / Procedures Referred By Kathie watkins [place]erred To Contact [facility] [place] Encounter for supervision of normal first in first trimester Maternal tobacco use in first trimester Procedures NUCHAL TRANSLUCENCY WHI US NUCHAL TRANSLUCENCY 1ST GESTATION Tennille Irvin MD [address] [place] [address] [facility] [address] [place] [address] Referral ID Status Reason Start Date Expiration Date V isits Requested Visits Authorized [id number] Closed Auto-Generate d Referral 08/13/2022 08/13/2023 1 1 Reason Onset Date Comments Care 09/10/2022 Immunizations 09/10/2022 Flu vaccination Reason Comments First Seq Results Reason Onset Date Comments Care 10/08/2022 Reason Onset Date Comments Care 11/04/2022 Specialty Diagnoses / Procedures Referred By Contac t Referred To Contact [facility] [place]oses Encounter for supervision of normal first in first trimester Maternal tobacco use in first trimester Procedures OBSTETRIC ULTRASOUND WHI US PREG UTERUS AFTER 1ST TRIMEST GESTATION Tennille Irvin MD [address] [place] [address] [facility] [address] [place] [address] Referral ID Status Reason Start Date Expiration Date V isits Requested Visits Authorized [id number] Closed Auto-Generate d Referral 08/13/2022 08/13/2023 1 1 Reason Onset Date Comments Care 12/03/2022 Reason Onset Date Comments Care 12/31/2022 Reason Onset Date Comments Care 01/14/2023 Reason Comments Breast Pump Specialty Diagnoses / Procedures Referred By Contac t Referred To Contact [facility] [place]oses 28 weeks gestation of Procedures OBSTETRIC ULTRASOUND WHI US PREG UTERUS AFTER 1ST TRIMEST GESTATION Chula Lockett APRN.[facility] [address] [place] [address] [facility] [address] [place] [address] Referral ID Status Reason Start Date Expiration Date V isits Requested Visits Authorized [id number] Closed Auto-Generate d Referral 12/31/2022 12/31/2023 1 1 Reason Onset Date Comments Care 01/28/2023 Reason Onset Date Comments Care 02/11/2023 Reason Comments Results Reason Comments Blood Management Specialty Diagnoses / Procedures Referred By Contac t Referred To Contact [facility] [place] Diagnoses 35 weeks gestation of Uterine size-date discrepancy, third trimester Procedures OBSTETRIC ULTRASOUND WHI US PREG UTERUS AFTER 1ST TRIMEST GESTATION Lino Kumar MD [address] [place] [address] [facility] [address] [address] Referral ID Status Reason Start Date Expiration Date V isits Requested Visits Authorized [id number] Closed Auto-Generate d Referral 02/22/2023 02/22/2024 1 1 Reason Onset Date Comments Care 02/22/2023 Reason Onset Date Comments Care 03/02/2023 Reason Comments blood management Reason Onset Date Comments Care 03/14/2023 Reason Onset Date Comments Care 03/18/2023 Reason Comments Ob Delivery Note Reason Comments Follow-up Reason Comments URI FEVER, BODY ACHES, C HILLS, HEADACHES, RIGHT BREAST PAIN, RIGHT SIDE SWOLLEN LYMPH NODE X 4 DAYS Reason Comments Hives Reason Comments Vomiting N/V/D since last nig ht. Chills, feels dehydrated. Lower back pain 05/23. Lightheaded when standing Reason Comments Well Woman Reason Comments Refill Request Reason Comments Head Injury Patient states one h our ago I opened my car door and turned to watch my kid and then walked right into the door and smacked my face. Abrasion to nose. Complains of headache, nausea and lightheadedness since injury. Denies LOC Reason Comments Follow-up Reason Comments URI Body aches, nausea, chills, headaches, fevers X 3 days Reason Comments URI Sore throat, bi-lat ear pain, headache, congestion, vomiting, x 5 days6 weeks Reason Comments Earache C/o right earache. S tates she heard a pop tonight and c/o sharp pain. States she recently has sore throat and sinus congestion/drainage. 6weeks . Reason Comments PRAF Specialty Diagnoses / Procedures Referred By Contac t Referred To Contact [facility] [place] Diagnoses with uncertain dates, antepartum (HCC) Procedures OBSTETRIC ULTRASOUND WHI US PREG UTERUS AFTER 1ST TRIMEST GESTATION Chula Lockett INSPECTOR AGRICULTURAL COMMODITIES.[facility] [address] [place] [address] Phone: tel: fax: [address] [phone] Referral ID Status Reason Start Date Expiration Date V isits Requested Visits Authorized [id number] Closed Auto-Generate d Referral 04/18/2025 04/18/2026 1 1 Reason Onset Date Comments Care 05/30/2025 Reason Comments Care Genetics Specialty Diagnoses / Procedures Referred By Contac t Referred To Contact Diagnoses Nuchal fold thickening on ultrasound Procedures CONSULT TO MEDICAL GENETICS - MEDICAL GENETICS COUNSELING EACH 30 MINUTES Lino Kumar MD [address] [place] [address] Phone: tel: fax: Genetic [address] [phone] Referral ID Status Reason Start Date Expiration Date Visits Requested Visits Authorized [id number] Pending Review PCP Requested Referral Auto-Generate d Referral 05/30/2025 05/30/2026 1 1 Reason Comments NIPT results: Positive Reason Comments Consult Reason Comments Care Genetics Reason Comments Inspector Canned Food Reconditioning - Other Care Reason Comments Question Reason Comments Care Plan Care Coordination Specialty Diagnoses / Procedures Referred By Contac t Referred To Contact [facility] [place] Diagnoses 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, antepartum, single or unspecified fetus (HCC) Procedures OBSTETRIC ULTRASOUND WHI US PREG UTERUS AFTER 1ST TRIMEST GESTATION Maki Davis MD [address] [place] [address] Phone: tel: fax: [address] [phone] Referral ID Status Reason Start Date Expiration Date V isits Requested Visits Authorized [id number] Closed Auto-Generate d Referral 06/24/2025 06/24/2026 8 1 Reason Comments Follow-up Fall Wrist Injury Hemorrhoids Care Teams (unrecognized sec tion and content) Spa Technician Relationship Specialty Start Date End Date Pat Giraldo Marilee, RHINESTONE SETTER [address] [place] [address] PCP - General Nurse Practitioner 01/08/22 Spa Technician Relationship Specialty Start Date End Date Lavogue, Lakshmi PCP - General 06/25/15 Spa Technician Relationship Specialty Start Date End Date Lavogue, Lakshmi PCP - General 06/25/15 Spa Technician Relationship Specialty Start Date End Date Lavogue, Lakshmi PCP - General 06/25/15 Spa Technician Relationship Specialty Start Date End Date Lavogue, Lakshmi PCP - General 06/25/15 Spa Technician Relationship Specialty Start Date End Date Lavogue, Lakshmi PCP - General 06/25/15 Spa Technician Relationship Specialty Start Date End Date Lavogue, Lakshmi PCP - General 06/25/15 Spa Technician Relationship Specialty Start Date End Date Lavogue, Lakshmi PCP - General 06/25/15 Spa Technician Relationship Specialty Start Date End Date Lavogue, Lakshmi PCP - General 06/25/15 Spa Technician Relationship Specialty Start Date End Date Lavogue, Lakshmi PCP - General 06/25/15 Spa Technician Relationship Specialty Start Date End Date Lavogue, Lakshmi PCP - General 06/25/15 Spa Technician Relationship Specialty Start Date End Date Lavogue, Lakshmi PCP - General 06/25/15 Spa Technician Relationship Specialty Start Date End Date Lavogue, Lakshmi PCP - General 06/25/15 Spa Technician Relationship Specialty Start Date End Date Lavogue, Lakshmi PCP - General 06/25/15 Spa Technician Relationship Specialty Start Date End Date Lavogue, Lakshmi PCP - General 06/25/15 Spa Technician Relationship Specialty Start Date End Date Lavogue, Lakshmi PCP - General 06/25/15 Team Status: Active Member Role Status Dates LAKSHMI LAVOGUE Primary Care Provider Active Team Status: Inactive Member Role Status Dates Dr. Lino Kumar MD Attending Provider, Referring Pr ovider Active LAKSHMIANGELITAOGUE Primary Care Provider Active Team Status: Inactive Member Role Status Dates ANGELITA MARTINSOGDEVIN Primary Care Provider Active Dr. Lino Kumar MD Attending Provider, Referring Pr ovider Active Spa Technician Relationship Specialty Start Date End Date Lavogue, Lakshmi PCP - General 06/25/15 Team Status: Inactive Member Role Status Dates LAKSHMIANGELITA VAUGHNOGDEVIN Primary Care Provider Active Dr. Tennille Avelar MD Other Provider Active Dr. Margo Bland MD Admit Provider, Attending Provider, Referring Provider Active Spa Technician Relationship Specialty Start Date End Date Pat GiraldoGEN-RHINESTONE SETTER Office Address Unavailable as of 07/15/2022 PCP - [facility] Medicaid PCP 02/12/23 Cally Hedirck, INSPECTOR [employer]GRIC[employer] COMMODITIES-RHINESTONE SETTER [address] [place] [facility] [place] [id number] PCP - General Family Medicine 08/31/23 Spa Technician Relationship Specialty Start Date End Date Cally Hedrick APRN-RHINESTONE SETTER [address] [place] [address] PCP - General Family Medicine 08/31/23 Spa Technician Relationship Specialty Start Date End Date Cally Hedrick APRN-RHINESTONE SETTER [address] [facility] [place] [address] PCP - General Family Medicine 08/31/23 Spa Technician Relationship Specialty Start Date End Date Lakshmi Chanel CNP PCP - General 06/25/15 Spa Technician Relationship Specialty Start Date End Date Lakshmi Chanel CNP PCP - General 06/25/15 Spa Technician Relationship Specialty Start Date End Date Cally Hedrick, GEN-RHINESTONE SETTER [address] [facility] Office [place] [id number] PCP - General Family Medicine 08/31/23 Cally Hedrick, INSPECTOR [employer]IC[employer] COMMODITIES-RHINESTONE SETTER [address] [facility] [address] [place] [address] PCP - [facility] Medicaid PCP 02/13/24 Spa Technician Relationship Specialty Start Date End Date Cally Hedrick APRN-GRETCHEN [address] [facility] [place] [address] PCP - General Family Medicine 08/31/23 Cally Hedrick APRN-RHINESTONE SETTER [address] [address] PCP - [facility] Medicaid PCP 02/13/24 Spa Technician Relationship Specialty Start Date End Date Cally Hedrick APRN-RHINESTONE SETTER [address] [address] PCP - [facility] Medicaid PCP 02/13/24 Cally Hedrick APRN-RHINESTONE SETTER [address] [place] [address] PCP - General Family Medicine 07/24/24 Spa Technician Relationship Specialty Start Date End Date Cally Hedrick APRN-GRETCHEN [facility] [address] [address] PCP - [facility] Medicaid PCP 02/13/24 Cally Hedrick APRN-RHINESTONE SETTER [address] [place] [address] PCP - General Family Medicine 07/24/24 Spa Technician Relationship Specialty Start Date End Date Lakshmi Chanel CNP PCP - General 06/25/15 Spa Technician Relationship Specialty Start Date End Date Cally Hedrick APRN-RHINESTONE SETTER [address] [address] PCP - [facility] Medicaid PCP 02/13/24 Cally Hedrick, GEN-RHINESTONE SETTER [address] [place] [address] PCP - General Family Medicine 07/24/24 Spa Technician Relationship Specialty Start Date End Date Lakshmi Chanel CNP PCP - General 06/25/15 Spa Technician Relationship Specialty Start Date End Date AngelitaLakshmi gary GRETCHEN PCP - General 06/25/15 Spa Technician Relationship Specialty Start Date End Date Lakshmi Chanel GRETCHEN PCP - General 06/25/15 Spa Technician Relationship Specialty Start Date End Date Lakshmi Chanel GRETCHEN PCP - General 06/25/15 Spa Technician Relationship Specialty Start Date End Date Lakshmi Chanel GRETCHEN PCP - General 06/25/15 Spa Technician Relationship Specialty Start Date End Date AngelitavanessadevinLakshmi GRETCHEN PCP - General 06/25/15 Spa Technician Relationship Specialty Start Date End Date Lakshmi Chanel GRTECHEN PCP - General 06/25/15 Spa Technician Relationship Specialty Start Date End Date Lakshmi Chanel GRETCHEN PCP - General 06/25/15 Spa Technician Relationship Specialty Start Date End Date Lakshmi Chanel GRETCHEN PCP - General 06/25/15 Spa Technician Relationship Specialty Start Date End Date Darío Lakshmi GRETCHEN PCP - General 06/25/15 Ophelia Rao RN Model And Mold Maker Plaster Medicine 06/27/25 Spa Technician Relationship Specialty Start Date End Date Lakshmi Chanel GRETCHEN PCP - General 06/25/15 Ophelia Rao RN Model And Mold Maker Plaster Medicine 06/27/25 Spa Technician Relationship Specialty Start Date End Date Angelitavanessadevin Lakshmi GRETCHEN PCP - General 06/25/15 Ophelia Rao RN Model And Mold Maker Plaster Medicine 06/27/25 Spa Technician Relationship Specialty Start Date End Date Lakshmi Chanel CNP PCP - General 06/25/15 Ophelia Rao, billiard table mechanicModel And Mold Maker Plaster Medicine 06/27/25 Spa Technician Relationship Specialty Start Date End Date Lakshmi Chanel CNP PCP - General 06/25/15 Ophelia Rao RN Model And Mold Maker Plaster Medicine 06/27/25 Spa Technician Relationship Specialty Start Date End Date Cally Hedrick APRN-CNP [address] [facility] [address] [place] [address] PCP - HUMAN RESOURCES ASSISTANT MANAGER Medicaid PCP 02/13/24 Cally Hedrick APRN-CNP [address] [place] [address] PCP - General Family Medicine 07/24/24 Source Comments (unrecognize d section and content) In the event this informatio n is protected by the Federal Confidentiality of Alcohol and Drug Abuse Patient Records regulations: The Federal rules restrict any use of the information to criminally investigate or prosecute any alcohol or drug abuse patient.[facility] HealthIn the event this information is protected by the Federal Confidentiality of Alcohol and Drug Abuse Patient Records regulations: The Federal rules restrict any use of the information to criminally investigate or prosecute any alcohol or drug abuse patient.[facility] HealthIn the event this information is protected by the Federal Confidentiality of Alcohol and Drug Abuse Patient Records regulations: The Federal rules restrict any use of the information to criminally investigate or prosecute any alcohol or drug abuse patient.[facility] HealthIn the event this information is protected by the Federal Confidentiality of Alcohol and Drug Abuse Patient Records regulations: The Federal rules restrict any use of the information to criminally investigate or prosecute any alcohol or drug abuse patient.[facility] HealthIn the event this information is protected by the Federal Confidentiality of Alcohol and Drug Abuse Patient Records regulations: The Federal rules restrict any use of the information to criminally investigate or prosecute any alcohol or drug abuse patient.[facility] HealthIn the event this information is protected by the Federal Confidentiality of Alcohol and Drug Abuse Patient Records regulations: The Federal rules restrict any use of the information to criminally investigate or prosecute any alcohol or drug abuse patient.[facility] HealthIn the event this information is protected by the Federal Confidentiality of Alcohol and Drug Abuse Patient Records regulations: The Federal rules restrict any use of the information to criminally investigate or prosecute any alcohol or drug abuse patient.[facility] HealthIn the event this information is protected by the Federal Confidentiality of Alcohol and Drug Abuse Patient Records regulations: The Federal rules restrict any use of the information to criminally investigate or prosecute any alcohol or drug abuse patient.[facility] HealthIn the event this information is protected by the Federal Confidentiality of Alcohol and Drug Abuse Patient Records regulations: The Federal rules restrict any use of the information to criminally investigate or prosecute any alcohol or drug abuse patient.[facility] HealthIn the event this information is protected by the Federal Confidentiality of Alcohol and Drug Abuse Patient Records regulations: The Federal rules restrict any use of the information to criminally investigate or prosecute any alcohol or drug abuse patient.[facility] HealthIn the event this information is protected by the Federal Confidentiality of Alcohol and Drug Abuse Patient Records regulations: The Federal rules restrict any use of the information to criminally investigate or prosecute any alcohol or drug abuse patient.[facility] HealthIn the event this information is protected by the Federal Confidentiality of Alcohol and Drug Abuse Patient Records regulations: The Federal rules restrict any use of the information to criminally investigate or prosecute any alcohol or drug abuse patient.[facility] HealthIn the event this information is protected by the Federal Confidentiality of Alcohol and Drug Abuse Patient Records regulations: The Federal rules restrict any use of the information to criminally investigate or prosecute any alcohol or drug abuse patient.[facility] HealthIn the event this information is protected by the Federal Confidentiality of Alcohol and Drug Abuse Patient Records regulations: The Federal rules restrict any use of the information to criminally investigate or prosecute any alcohol or drug abuse patient.[facility] HealthIn the event this information is protected by the Federal Confidentiality of Alcohol and Drug Abuse Patient Records regulations: The Federal rules restrict any use of the information to criminally investigate or prosecute any alcohol or drug abuse patient.[facility] HealthIn the event this information is protected by the Federal Confidentiality of Alcohol and Drug Abuse Patient Records regulations: The Federal rules restrict any use of the information to criminally investigate or prosecute any alcohol or drug abuse patient.[facility] HealthIn the event this information is protected by the Federal Confidentiality of Alcohol and Drug Abuse Patient Records regulations: The Federal rules restrict any use of the information to criminally investigate or prosecute any alcohol or drug abuse patient.[facility] HealthIn the event this information is protected by the Federal Confidentiality of Alcohol and Drug Abuse Patient Records regulations: The Federal rules restrict any use of the information to criminally investigate or prosecute any alcohol or drug abuse patient.[facility] HealthIn the event this information is protected by the Federal Confidentiality of Alcohol and Drug Abuse Patient Records regulations: The Federal rules restrict any use of the information to criminally investigate or prosecute any alcohol or drug abuse patient.[facility] HealthIn the event this information is protected by the Federal Confidentiality of Alcohol and Drug Abuse Patient Records regulations: The Federal rules restrict any use of the information to criminally investigate or prosecute any alcohol or drug abuse patient.[facility] HealthIn the event this information is protected by the Federal Confidentiality of Alcohol and Drug Abuse Patient Records regulations: The Federal rules restrict any use of the information to criminally investigate or prosecute any alcohol or drug abuse patient.[facility] HealthIn the event this information is protected by the Federal Confidentiality of Alcohol and Drug Abuse Patient Records regulations: The Federal rules restrict any use of the information to criminally investigate or prosecute any alcohol or drug abuse patient.[facility] HealthIn the event this information is protected by the Federal Confidentiality of Alcohol and Drug Abuse Patient Records regulations: The Federal rules restrict any use of the information to criminally investigate or prosecute any alcohol or drug abuse patient.[facility] HealthIn the event this information is protected by the Federal Confidentiality of Alcohol and Drug Abuse Patient Records regulations: The Federal rules restrict any use of the information to criminally investigate or prosecute any alcohol or drug abuse patient.[facility] HealthIn the event this information is protected by the Federal Confidentiality of Alcohol and Drug Abuse Patient Records regulations: The Federal rules restrict any use of the information to criminally investigate or prosecute any alcohol or drug abuse patient.[facility] HealthIn the event this information is protected by the Federal Confidentiality of Alcohol and Drug Abuse Patient Records regulations: The Federal rules restrict any use of the information to criminally investigate or prosecute any alcohol or drug abuse patient.[facility] HealthIn the event this information is protected by the Federal Confidentiality of Alcohol and Drug Abuse Patient Records regulations: The Federal rules restrict any use of the information to criminally investigate or prosecute any alcohol or drug abuse patient.[facility] HealthIn the event this information is protected by the Federal Confidentiality of Alcohol and Drug Abuse Patient Records regulations: The Federal rules restrict any use of the information to criminally investigate or prosecute any alcohol or drug abuse patient.[facility] HealthIn the event this information is protected by the Federal Confidentiality of Alcohol and Drug Abuse Patient Records regulations: The Federal rules restrict any use of the information to criminally investigate or prosecute any alcohol or drug abuse patient.[facility] HealthIn the event this information is protected by the Federal Confidentiality of Alcohol and Drug Abuse Patient Records regulations: The Federal rules restrict any use of the information to criminally investigate or prosecute any alcohol or drug abuse patient.[facility] HealthIn the event this information is protected by the Federal Confidentiality of Alcohol and Drug Abuse Patient Records regulations: The Federal rules restrict any use of the information to criminally investigate or prosecute any alcohol or drug abuse patient.[facility] HealthIn the event this information is protected by the Federal Confidentiality of Alcohol and Drug Abuse Patient Records regulations: The Federal rules restrict any use of the information to criminally investigate or prosecute any alcohol or drug abuse patient.[facility] HealthIn the event this information is protected by the Federal Confidentiality of Alcohol and Drug Abuse Patient Records regulations: The Federal rules restrict any use of the information to criminally investigate or prosecute any alcohol or drug abuse patient.[facility] HealthIn the event this information is protected by the Federal Confidentiality of Alcohol and Drug Abuse Patient Records regulations: The Federal rules restrict any use of the information to criminally investigate or prosecute any alcohol or drug abuse patient.[facility] HealthIn the event this information is protected by the Federal Confidentiality of Alcohol and Drug Abuse Patient Records regulations: The Federal rules restrict any use of the information to criminally investigate or prosecute any alcohol or drug abuse patient.[facility] HealthIn the event this information is protected by the Federal Confidentiality of Alcohol and Drug Abuse Patient Records regulations: The Federal rules restrict any use of the information to criminally investigate or prosecute any alcohol or drug abuse patient.[facility] HealthIn the event this information is protected by the Federal Confidentiality of Alcohol and Drug Abuse Patient Records regulations: The Federal rules restrict any use of the information to criminally investigate or prosecute any alcohol or drug abuse patient.[facility] HealthIn the event this information is protected by the Federal Confidentiality of Alcohol and Drug Abuse Patient Records regulations: The Federal rules restrict any use of the information to criminally investigate or prosecute any alcohol or drug abuse patient.[facility] HealthIn the event this information is protected by the Federal Confidentiality of Alcohol and Drug Abuse Patient Records regulations: The Federal rules restrict any use of the information to criminally investigate or prosecute any alcohol or drug abuse patient.[facility] HealthIn the event this information is protected by the Federal Confidentiality of Alcohol and Drug Abuse Patient Records regulations: The Federal rules restrict any use of the information to criminally investigate or prosecute any alcohol or drug abuse patient.[facility] HealthIn the event this information is protected by the Federal Confidentiality of Alcohol and Drug Abuse Patient Records regulations: The Federal rules restrict any use of the information to criminally investigate or prosecute any alcohol or drug abuse patient.[facility] HealthIn the event this information is protected by the Federal Confidentiality of Alcohol and Drug Abuse Patient Records regulations: The Federal rules restrict any use of the information to criminally investigate or prosecute any alcohol or drug abuse patient.[facility] HealthIn the event this information is protected by the Federal Confidentiality of Alcohol and Drug Abuse Patient Records regulations: The Federal rules restrict any use of the information to criminally investigate or prosecute any alcohol or drug abuse patient.[facility] HealthIn the event this information is protected by the Federal Confidentiality of Alcohol and Drug Abuse Patient Records regulations: The Federal rules restrict any use of the information to criminally investigate or prosecute any alcohol or drug abuse patient.[facility] HealthIn the event this information is protected by the Federal Confidentiality of Alcohol and Drug Abuse Patient Records regulations: The Federal rules restrict any use of the information to criminally investigate or prosecute any alcohol or drug abuse patient.[facility] HealthIn the event this information is protected by the Federal Confidentiality of Alcohol and Drug Abuse Patient Records regulations: The Federal rules restrict any use of the information to criminally investigate or prosecute any alcohol or drug abuse patient.[facility] HealthIn the event this information is protected by the Federal Confidentiality of Alcohol and Drug Abuse Patient Records regulations: The Federal rules restrict any use of the information to criminally investigate or prosecute any alcohol or drug abuse patient.[facility] HealthIn the event this information is protected by the Federal Confidentiality of Alcohol and Drug Abuse Patient Records regulations: The Federal rules restrict any use of the information to criminally investigate or prosecute any alcohol or drug abuse patient.[facility] Goals (unrecognized section and content) Goals may be documented in a n alternate sectionGoals may be documented in an alternate sectionGoals may be documented in an alternate sectionGoals may be documented in an alternate section Scheduled Active and Recently Administ ered Medications (unrecognized section and content) Medication Order 01/11/2024 01/12/2024 01/13/2024 ketorolac (Toradol) injection 15 mg (COMPLETED) 15 mg, intravenous, Once, On Tue01/13/24 at 1430, For 1 dose 1444 (Given - Provid er: Maxine Ram RN) ondansetron (Zofran) injection 4 mg (COMPLETED) 4 mg, intravenous, Once, On Tue01/13/24 at 1430, For 1 dose, When administering via IV Push, administer over 3-5 minutes. 1445 (Given - Provid er: Maxine Ram RN) sodium chloride 0.9 % bolus 1,000 mL (COMPLETED) 1,000 mL, intravenous, at 2,000 mL/hr, Administer over 30 Minutes, Once, On Tue01/13/24 at 1430, For 1 dose 1445 (New Bag - Prov ider: Maxine Ram RN)1657 (Stopped - Provider: Maxine Ram RN) Scheduled Medication Order 07/07/2024 07/08/2024 07/09/2024 acetaminophen (Tylenol) tablet 975 mg (COMPLETED) 975 mg, oral, Once, On Tue07/09/24 at 1825, For 1 dose, If ordered PRN for pain, nurse is permitted to administer this medication for higher pain scores based on patient preference? Yes 1851 (Given - Provid er: Celia Rand RN) ondansetron ODT (Zofran-ODT) disintegrating tablet 4 mg (COMPLETED) 4 mg, oral, Once, On Tue07/09/24 at 1835, For 1 dose 185 (Given - Provid er: Celia Rand RN) Scheduled Medication Order 04/08/2025 04/09/2025 04/10/2025 acetaminophen (Tylenol) tablet 975 mg (COMPLETED) 975 mg, oral, Once, On Tue04/10/25 at 2150, For 1 dose, If ordered PRN for pain, nurse is permitted to administer this medication for higher pain scores based on patient preference? Yes 2200 (Given - Provid er: Lori Edouard RN) amoxicillin (Amoxil) capsule 500 mg 500 mg, oral, Every 8 hours scheduled, First dose on Tue04/10/25 at 2200, Suspected Indication (Select all that apply): Sinusitis/Other ENT, Type of Therapy: Empiric, Indications: Sinusitis/Other ENT 2199 (Given - Provid er: Lori Edouard RN) ofloxacin (Floxin) 0.3 % otic solution 10 drop (COMPLETED) 10 drop, Right Ear, Once, On Tue04/10/25 at 2200, For 1 dose 2200 (Given - Provid er: Lori Edouard RN) FOR RECORDS PERTAINING TO PATIENTS WHO ARE OR HAVE BEEN ENROLLED IN A CHEMICAL DEPENDENCY/SUBSTANCEABUSE PROGRAM, SOME INFORMATION MAY BE OMITTED. This clinical summary was aggregated from multiple sources. Caution should be exercised in using it in the provision of clinical care. This summary normalizes information from multiple sources, and as a consequence, information in this document may materially change the coding, format and clinical context of patient data. In addition, data may be omitted in some cases. CLINICAL DECISIONS SHOULD BE BASED ON THE PRIMARY CLINICAL RECORDS. [employer] [facility]. provides no warranty or guarantee of the accuracy or completeness of information in this document.
[2025-10-19 13:15] VITALS: BMI 28.9
[2025-10-19] MEDS: 0.9% Normal Saline (1000mL) 1,000 ML 999 ML IV (13:22)
[2025-10-19 13:26] LABS: Hematocrit 31.9 % (37-47); Hemoglobin 10.9 g/dL (12.0-15.0); Immature Granulocytes Count 0.100 X10^3/uL (0.0-0.0); Mean Corp Hgb Conc 34.2 g/dL (32-36); Mean Corpuscular Volume 97.9 fL (81-99); Mean Platelet Vol. 11.8 fl (6.2-12.0); NRBC Flagged by Analyzer 0 % (0-5); Platelet Count 137 K/mm3 (150-450); RBC Distribution Width CV 13.2 % (11.6-14.6); RBC Distribution Width SD 47.5 fl (35.1-43.9); Red Blood Count 3.26 M/mm3 (4.2-5.4); White Blood Count 10.0 K/mm3 (4.4-11.0)
[2025-10-19 13:42] LABS: Anion Gap 10 (5-15); BUN 6 mg/dL (4-19); BUN/Creat Ratio 10.8 RATIO (10-20); Calcium,Total 8.6 mg/dL (7.6-11.0); Carbon Dioxide 21.7 mmol/L (21.0-32.0); Chloride 106 mmol/L (98-108); Estimated Creatinine Clearance 189.25 ml/min (50-250); Glucose 104 mg/dL (70-99); Potassium 3.6 mmol/L (3.3-5.1)
[2025-10-19 14:17] LABS: Mucous, Urine 0 SEEN /hpf (<or=2+); Red Blood Cells-Urine 0 SEEN /hpf (0-5)
[2025-10-19 14:18] LABS: Color, Urine Yellow (Yellow); Glucose, Dipstick Normal (Normal); Ketone-Dipstick Negative (Negative); Leukocyte Esterase-Dipstick 100 /ul (Negative); Nitrite-Dipstick Negative (Negative); Occult Blood-Urine Negative /ul (Negative); Protein-Dipstick Negative (Negative); Specific Gravity, Urine 1.015 (1.002-1.030); Urine Bilirubin Dipstick Negative (Negative)
[2025-10-19 14:25] LABS: Squamous Epithelial Cells - UA 0-5 SEEN /hpf (5-10)
[2025-10-19 15:04] VITALS: BP 125/79; PULSE 88; RESP 16; O2SAT 100
--- NOTE | 2025-10-19 15:06 | CM.ED ---
Social Work Date of referral: 10/19/25 Reason for referral: No Primary Care Physician (PCP) on file Referred by: Social Work Identification Patient provided consent to social work visit. Patient stated she used to have a PCP through ([facility]) who has since left . 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 Patient verbalized she understood and denied any other issues/concerns at this time. Zoë Plaza, [employer]DSCRE[employer]TER, BEHAVIOR CLINICIAN
[2025-10-19 16:14] VITALS: BP 125/79; PULSE 88; RESP 16; TEMP 36.9; O2SAT 100
== END 2025-10-19 16:25 | disposition home or self-care (01) ==
PROVIDERS: Emergency Provider Emergency Medicine; Visit Provider Emergency Medicine
DX: O99.413 Diseases of the circulatory system complicating pregnancy, third trimester (principal); I87.1 Compression of vein; O99.013 Anemia complicating pregnancy, third trimester; D64.9 Anemia, unspecified; O99.891 Other specified diseases and conditions complicating pregnancy; R42 Dizziness and giddiness; O99.333 Smoking (tobacco) complicating pregnancy, third trimester; F17.210 Nicotine dependence, cigarettes, uncomplicated; Z3A.34 34 weeks gestation of pregnancy
CPT/HCPCS: 80048; 81001; 85025; 96360; 96361; 99285; A4216